=== PATIENT | female | born 1970 | race Caucasian/White ===

== ENCOUNTER 2017-04-28 20:58 | Emergency (ER) | payer MEDICAID, SELFPAY ==
[2017-04-28 21:01] VITALS: BP 146/90; PULSE 67; RESP 16; TEMP 35.9; O2SAT 100; BMI 24.4
--- NOTE | 2017-04-28 21:38 | RAD_ITS ---
STUDY: X-RAY - LUMBAR SPINE REASON FOR EXAM: Female, 46 years old. Patient fell 3 days ago. Pain in lower back. TECHNIQUE: 3 view(s) of the lumbar spine were obtained. COMPARISON: None FINDINGS: Normal lumbar lordosis. There is no substantial scoliosis. There is a normal alignment of the vertebrae. An IVC filter is in place. Normal vertebral bodies and endplates. Normal disc space heights. The soft tissue structures are unremarkable. RAD/Lumbar Spine 2 or 3 Views IMPRESSION: Normal x-ray examination of the lumbar spine. Electronically Signed: Alex Huizar MD at 22:17 EST , Service support ,
[2017-04-28] MEDS: HYDROcodone Bitartrate/Apap 5/325 Tablet PO ×2 (21:45→23:07)
--- NOTE | 2017-04-28 21:55 | RAD_ITS ---
STUDY: X-RAY - LEFT KNEE REASON FOR EXAM: Female, 46 years old. Patient fell 3 days ago. Pain in left knee. Hx of left knee injury 9 months ago. TECHNIQUE: 4 view(s) of the knee. COMPARISON: None. FINDINGS: Normal visualized distal femur. Nondisplaced fracture of the anterior tibial metaphysis. Normal proximal tibiofibular articulation. Normal medial femorotibial compartment. Normal lateral femorotibial compartment. Normal patellofemoral articulation. The soft tissue structures are unremarkable. RAD/Knee 4 or More Views IMPRESSION: Nondisplaced fracture of the anterior tibial metaphysis. Electronically Signed: Alex Huizar MD at 22:19 EST , Service support ,
--- NOTE | 2017-04-28 22:43 | ED.DCSUM_ITS ---
- ER Visit Summary Date of Service: 04/28/17 Chief Complaint: Left knee injury and back pain History of Present Illness: The patient is a 46 F who states she slipped on the ice and fell 3 days ago. She is complaining of pain to the anterior inferior aspect of her left knee as well as to her back. Patient had a tibial plateau fracture in August 2016. This healed nonsurgically. Patient states she continues to have pain to the area and is supposed to have injections by Dr. Romero in the near future. Physical Examination: Vital signs are unremarkable. Patient sitting upright in bed no acute distress. Heart is regular rate and rhythm. Lungs are clear. Abdomen is soft and nontender. Lower extremity examination reveals tenderness of the tibial tuberosity of the left leg. She has no tenderness at the joint line medially or laterally. She has strong distal pulses. She is chronic decreased range of motion the left leg secondary to her prior fracture. Back examination does reveal midline tenderness in the lumbar region. No sniffing or paraspinal tenderness. No ecchymosis or abrasions. Test Results: L-spine x-rays are unremarkable. Left knee x-rays reveal a nondisplaced fracture the anterior tibial metaphysis. Emergency Department Course and Treatment: Patient was given Hanahan here for pain. I did do an oars report. Her last narcotic was for 7 tabs of Hanahan on April 09. Images were sent to Dr. Hanna, on-call for the patient's orthopedic physician Dr. Lemon. Patient is placed in an knee immobilizer. She has crutches at home and was told multiple times that she is to be completely nonweightbearing on this leg. She is given a home pack of Hanahan tonight and prescription sent electronically for Hanahan. Patient is to see Dr. Lemon in the office next week. Treatment Plan: [] Disposition: Discharge Impression: Tibial metaphysis fracture status post fall This note was generated with [employer] dictation software. It may contain incorrect words, spelling, and punctuation that were not noted in review of the chart prior to signing ED Disposition - Plan for ED Patient: Disposition: Home or Assisted Living Chief Complaint: Lower Extremity Injury Instructions: ED Fx Lower Ext Prescriptions: Hydrocodone Bitart/Apap 5-325 [[place]ahan 5/325] 1 - 2 tablet PO Q4H PRN PRN 6 Days # 20 tablet PRN Reason: Pain Referrals: Ga Lemon MD [STAFF PHYSICIAN] - 1 Week
--- NOTE | 2017-04-28 22:43 | ED.DEP ---
ED Disposition - Plan for ED Patient: Disposition: Home or Assisted Living Chief Complaint: Lower Extremity Injury Instructions: ED Fx Lower Ext Prescriptions: Hydrocodone Bitart/Apap 5-325 [[place] 5/325] 1 - 2 tablet PO Q4H PRN PRN 6 Days #20 tablet PRN Reason: Pain Referrals: Ga Lemon MD [STAFF PHYSICIAN] - 1 Week
--- NOTE | 2017-04-28 22:47 | DCINST.ED_ITS ---
ED Disposition - Plan for ED Patient: Disposition: Home or Assisted Living Chief Complaint: Lower Extremity Injury Instructions: ED Fx Lower Ext Prescriptions: Hydrocodone Bitart/Apap 5-325 [[place] 5/325] 1 - 2 tablet PO Q4H PRN PRN 6 Days # 20 tablet PRN Reason: Pain Referrals: Ga Lemon MD [STAFF PHYSICIAN] - 1 Week
[2017-04-28 23:17] VITALS: BP 139/81; PULSE 78; RESP 18; O2SAT 97
== END 2017-04-28 23:18 | disposition home or self-care (01) ==
PROVIDERS: Emergency Provider Emergency Medicine
DX: S82.292A Other fracture of shaft of left tibia, initial encounter for closed fracture (principal); W00.0XXA Fall on same level due to ice and snow, initial encounter; Y93.9 Activity, unspecified; Y92.9 Unspecified place or not applicable; Y99.9 Unspecified external cause status; I10 Essential (primary) hypertension; E78.00 Pure hypercholesterolemia, unspecified; I25.2 Old myocardial infarction; G40.909 Epilepsy, unspecified, not intractable, without status epilepticus; F31.9 Bipolar disorder, unspecified; Z72.0 Tobacco use
CPT/HCPCS: 72100; 73564; 99283

== ENCOUNTER 2017-05-21 11:26 | Emergency (ER) | payer MEDICAID, SELFPAY ==
[2017-05-21 11:27] VITALS: BP 132/84; PULSE 80; RESP 16; TEMP 36.8; O2SAT 99; BMI 25.3
--- NOTE | 2017-05-21 11:49 | ED.VISSUMM ---
- ER Visit Summary Date of Service: 05/21/17 Chief Complaint: Upper Abdominal pain History of Present Illness: The patient is a 46 F history of anemia prior appendectomy and prior laboratory laparotomy for what sounds like a perforated gastric ulcer. She states currently she is on Vicodin for fracture of her left lower leg. States that in the last 4-5 days she started having epigastric abdominal pain. Associated nausea without vomiting. No diarrhea, constipation or fever. No back pain. No dysuria. She denies any black or bloody stools. Nothing specifically makes the pain better or worse. Physical Examination: Appearing middle-aged female. Vital signs are stable afebrile. Pulse is 99% room air no signs of hypoxia. She is in no distress. H EENT exam is unremarkable. Neck nontender no lymphadenopathy. Lungs clear to auscultation bilaterally. Heart regular rate and rhythm no murmur. Chest wall nontender. Abdomen soft and nondistended. Normal bowel sounds. No pulsatile mass. The right lower quadrant are basically unremarkable. She does have epigastric tenderness mild left upper and right upper quadrant tenderness. No hernias, masses or signs of obstruction. No distention. She is moving all 4 extremities. There is no edema. She does have a brace knee immobilizer on her left lower leg. Back exam is normal and nontender. Neurologically she is awake and alert without focal deficits. Test Results: CBC normal. BMP normal. Hepatic panel normal. Lipase normal. Emergency Department Course and Treatment: He was abdominal pain after use of Vicodin for a fractured left leg. Treatment Plan: Repeat exam at 1505 patient is doing well abdomen is benign. She will be discharged to home to follow-up with her primary care physician for further evaluation. If the pain is not improving she may need upper endoscopy. Disposition: dc Impression: Acute abdominal pain uncertain etiology Gastritis This note was generated with [employer] dictation software. It may contain incorrect words, spelling, and punctuation that were not noted in review of the chart prior to signing ED Disposition - Plan for ED Patient: Chief Complaint: Abd Pain Referrals: Argelia Viramontes DO [Primary Care Provider] -
[2017-05-21] MEDS: Famotidine 20 MG Tablet 40 MG PO (12:31)
[2017-05-21 13:18] LABS: Absolute Neutrophil Count 3.7 X10^3/uL (2.0-7.7); Basophil# 0.04 X10^3/uL; Basophil% 0.5 % (0-1); Eosinophil# 0.18 X10^3/uL; Eosinophils% 2.2 % (0-5); Hematocrit 38.2 % (37-47); Hemoglobin 12.4 g/dl (12.0-15.0); Lymphocyte % 41.9 % (19-41); Mean Corp Hgb Conc 32.5 g/gl (32-36); Mean Corpuscular Hgb 28.4 pg (27.0-32.0); Mean Corpuscular Volume 87.4 fL (81-99); Mean Platelet Vol. 10.2 fl (6.2-12.0); Monocyte# 0.78 X10^3/uL; Monocyte% 9.6 % (0-10); Neutrophil # 3.69 X10^3/uL (2.7-7.7); Neutrophil % 45.4 % (47-70); Platelet Count 371 K/mm3 (150-450); RBC Distribution Width CV 18.9 % (11.6-14.6); RBC Distribution Width SD 57.7 fl (35.1-43.9); Red Blood Count 4.37 M/mm3 (4.2-5.4); White Blood Count 8.1 K/mm3 (4.4-11.0)
[2017-05-21 13:19] LABS: POSITIVE COUNT NO; POSITIVE DIFFERENTIAL NO; POSITIVE MORPHOLOGY NO
[2017-05-21 13:51] VITALS: BP 140/80; PULSE 68; RESP 18; O2SAT 100
[2017-05-21 14:09] LABS: AST(SGOT) 8 U/L (15-37); Alanine Aminotransfer ALT/SGPT 16 U/L (13-56); Albumin, Serum 3.7 g/dL (3.2-5.0); Alkaline Phosphatase 93 U/L (45-117); Anion Gap 8 (5-15); BUN 13 mg/dL (7-18); Bilirubin, Direct 0.08 mg/dL (0.00-0.30); Calcium,Total 8.9 mg/dL (8.5-10.1); Chloride 102 mmol/L (98-107); EST Glomerular Filtration Rate 142 mL/min (>60); Est Glom Filt Rate - Afr Amer 172 mL/min (>60); Estimated Creatinine Clearance 123.99 ml/min; Globulin 3.4 g/dL (2.2-4.2); Glucose 84 mg/dL (74-106); Lipase 248 U/L (73-393); Potassium 4.5 mmol/L (3.5-5.1); Protein, Total 7.1 g/dL (6.4-8.2); Sodium Level 138 mmol/L (136-145)
--- NOTE | 2017-05-21 15:10 | ED.DEP ---
ED Disposition - Plan for ED Patient: Disposition: Home or Assisted Living Chief Complaint: Abd Pain Instructions: ED Abdominal Pain Unkn Cause, ED Gastritis Referrals: Argelia Viramontes DO [Primary Care Provider] - 3-5 Days if not improving Additional Instructions: Acute abdominal pain may be secondary to irritation in her stomach from the medications. Continue Zantac. Need follow-up your primary care physician is not getting better you may need an upper GI scope. Return to the ER if increasing pain, fever, vomiting blood or black or bloody stools.
[2017-05-21 15:25] VITALS: BP 132/82; PULSE 68; RESP 16; O2SAT 100
--- NOTE | 2017-05-21 15:25 | ED.RN ---
Reviewed d/c instructions, follow up care, and s/s that would warrant a return to the ed with pt. Pt verbalized an understanding and denies further questions for this RN. Pt skin p/w/d, resp even and unlabored, pt A&O x 3, no distress noted. Pt ambulated out of ed, gait steady.
== END 2017-05-21 15:26 | disposition home or self-care (01) ==
PROVIDERS: Emergency Provider Emergency Medicine
DX: R10.9 Unspecified abdominal pain (principal); K29.70 Gastritis, unspecified, without bleeding; F32.9 Major depressive disorder, single episode, unspecified; I25.10 Atherosclerotic heart disease of native coronary artery without angina pectoris; Z87.11 Personal history of peptic ulcer disease; Z72.0 Tobacco use
CPT/HCPCS: 80048; 80076; 83690; 85025; 99285; A4216

== ENCOUNTER 2017-08-13 15:38 | Emergency (ER) | payer MEDICAID, SELFPAY ==
[2017-08-13 15:39] VITALS: BP 107/72; PULSE 75; RESP 16; TEMP 36.8; O2SAT 99; BMI 26.4
[2017-08-13] MEDS: HYDROcodone Bitartrate/Apap 5/325 Tablet PO (15:51)
--- NOTE | 2017-08-13 15:53 | ED.VISSUMM ---
- ER Visit Summary Date of Service: 08/13/17 Chief Complaint: Left knee injury History of Present Illness: The patient is a 46 F presents to the emergency department with injury to her left knee. Patient states she was getting out of the cab and lost her balance. She fell and landed on her left knee. She was concerned because she has had tibial plateau fracture of the same knee that was treated conservatively without surgery. She states she has been able to bear weight but does admit to increasing pain. She did not hit her head. She denies loss of consciousness. She denies any other injury. She has not taken anything for the pain. Physical Examination: Vital signs reviewed General: Well-nourished, well-developed Head: Normocephalic, atraumatic Eyes: Pupils equal and reactive, extraocular muscles intact Neck, supple, no lymphadenopathy Heart: Regular rate and rhythm Respiratory: No distress, clear bilaterally Abdomen: Soft, nontender, nondistended, no peritoneal signs Back: Nontender Extremities: Superficial abrasion of the left knee. Small effusion. Extension preserved. Skin: Normal color no rash Neuro: Alert and oriented, no focal or lateralizing deficits Test Results: [] Emergency Department Course and Treatment: Patient was given one [place] for pain control. I did obtain plain films of the knee. There is evidence of old tibial plateau fracture, but no new fracture. There is no effusion. Patient's extension is preserved. She is placed in an Thomas wrap. She is already on analgesics at home. She will continue these and follow-up with orthopedics. Treatment Plan: [] Disposition: Charge Impression: Left Knee contusion This note was generated with [employer] dictation software. It may contain incorrect words, spelling, and punctuation that were not noted in review of the chart prior to signing ED Disposition - Plan for ED Patient: Chief Complaint: Lower Extremity Injury Instructions: ED Sprain Knee Referrals: Argelia Viramontes DO [Primary Care Provider] -
--- NOTE | 2017-08-13 15:55 | RAD_ITS ---
STUDY: X-RAY - LEFT KNEE REASON FOR EXAM: Left knee pain after fall, history of knee fracture. TECHNIQUE: 4 view(s) of the knee. COMPARISON: Radiographs 04/28/2017 and 02/02/2017. FINDINGS: Normal visualized distal femur. There is chronic fracture deformity of the proximal tibia and head of the fibula. Normal medial femorotibial compartment. Normal lateral femorotibial compartment. Normal patellofemoral articulation. The soft tissue structures are unremarkable. RAD/Knee 4 or More Views IMPRESSION: Chronic fracture deformity of the proximal tibia and head of the fibula without demonstrated acute fracture. Electronically Signed: Edwin Martin MD at 16:19 EDT Tel , Service support ,
== END 2017-08-13 16:55 | disposition home or self-care (01) ==
PROVIDERS: Emergency Provider Emergency Medicine
DX: S80.02XA Contusion of left knee, initial encounter (principal); W17.89XA Other fall from one level to another, initial encounter; Y93.9 Activity, unspecified; Y92.410 Unspecified street and highway as the place of occurrence of the external cause; Y99.8 Other external cause status; Z87.891 Personal history of nicotine dependence; F31.9 Bipolar disorder, unspecified
CPT/HCPCS: 73564; 99282

== ENCOUNTER 2017-11-28 21:43 | Emergency (ER) | payer MEDICAID, SELFPAY ==
[2017-11-28 21:44] VITALS: BP 115/72; PULSE 60; RESP 18; TEMP 36.5; O2SAT 99; BMI 26.0
[2017-11-28 22:21] VITALS: BP 118/80; PULSE 65; RESP 14; O2SAT 98
[2017-11-28] MEDS: HYDROcodone Bitartrate/Apap 5/325 Tablet PO (23:27)
--- NOTE | 2017-11-28 23:35 | ED.VISSUMM ---
- ER Visit Summary Date of Service: 11/28/17 Chief Complaint: Injury left leg History of Present Illness: The patient is a 46 F who had a mechanical fall and fell into a wooden stair. She complains of pain proximal and mid left leg. She reports pain with ambulation. She denies paresthesia, anesthesia motor weakness. She denies any other complaint. There is no history of head trauma. Denies neck pain. Denies any paresthesia, anesthesia motors upper extremity or weakness. Physical Examination: Patient has soft tissue swelling with contusions to the left leg. There is pain palpation over the proximal/mid third of the fibula. There is no pain the patient over the tibia. Patella is nontender. There is no effusion. There is no laxity with varus valgus stress testing. Passive flexion-extension causes discomfort. DP and PT pulses are palpable. There is no pain the patient over the lateral medial malleolus. Test Results: Two-view x-ray of the tibia and fibula were obtained and reveals that the prior anterior proximal tibial plateau has healed. There is chronic deformity of the fibular head. There is no acute fracture noted. Emergency Department Course and Treatment: X-ray was obtained to evaluate for fracture. She also was medicated with one [place] tablet Treatment Plan: Rest, ice and anti-inflammatory Disposition: Discharged home with spouse Impression: Mechanical fall with injury initial encounter Contusion left leg secondary to mechanical fall This note was generated with [employer] dictation software. It may contain incorrect words, spelling, and punctuation that were not noted in review of the chart prior to signing ED Disposition - Plan for ED Patient: Disposition: Home or Assisted Living Chief Complaint: Lower Extremity Injury Instructions: ED Contusion Lower Ext Referrals: Lida Almazan, GLYCERIN OPERATOR-C [Primary Care Provider] - 1 Week if not improving
== END 2017-11-29 00:19 | disposition home or self-care (01) ==
PROVIDERS: Emergency Provider Emergency Medicine; Family Provider Nurse Practitioner Family; PCP Nurse Practitioner Family
DX: S80.12XA Contusion of left lower leg, initial encounter (principal); W10.9XXA Fall (on) (from) unspecified stairs and steps, initial encounter; Y93.9 Activity, unspecified; Y92.89 Other specified places as the place of occurrence of the external cause; Y99.9 Unspecified external cause status; F32.9 Major depressive disorder, single episode, unspecified; I10 Essential (primary) hypertension; E78.00 Pure hypercholesterolemia, unspecified; Z86.718 Personal history of other venous thrombosis and embolism
CPT/HCPCS: 73590; 99283

== ENCOUNTER 2018-01-15 15:00 | Emergency (ER) | payer MEDICAID, SELFPAY ==
[2018-01-15] VITALS (7 sets, daily range): BP systolic 96–112; BP diastolic 59–91; PULSE 94–98; RESP 16–18; TEMP 36.6–36.7; O2SAT 94–98; BMI 28.1
--- NOTE | 2018-01-15 15:28 | ED.VISSUMM ---
- ER Visit Summary Date of Service: 01/15/18 Chief Complaint: Suicidal History of Present Illness: The patient is a 47 F presents with suicidal ideation. Patient states for the last couple days she has felt like cutting her wrists. She reached out to her counselor today. Last night she wrote her 4 page note which she states was partially a suicide note and partially a cry for help. She stated multiple times in the note that she wants to end her life. She was admitted to [facility] and discharged on December 28. She believes she was discharged too soon. She does not believe the medication she is on is helping her. She gets in frequent arguments with her boyfriend. He did not want her to come to the hospital for help. He does not like to be alone. He told her if she came to the hospital he would end their relationship. She has a history of auditory hallucinations. History of past suicide attempt. Physical Examination: Vitals are stable. Patient is afebrile. Alert no acute distress. HEENT exam is unremarkable. Neck is supple. Lungs are clear and equal bilaterally. Heart is regular rate and rhythm. Extremities are unremarkable. Skin is warm and dry. No focal neurologic deficit. Depressed, flat affect. Suicidal ideation Remainder of exam is unremarkable. Emergency Department Course and Treatment: CBC, chemistries unremarkable. HCG negative. Tox positive for barbiturates. Alcohol negative. Discussed with the counseling center for evaluation. Disposition: Per counseling center Impression: Suicidal ideation This note was generated with [employer] dictation software. It may contain incorrect words, spelling, and punctuation that were not noted in review of the chart prior to signing ED Disposition - Plan for ED Patient: Chief Complaint: Suicidal Referrals: Lida Almazan, HERNANDEZ-C [Primary Care Provider] -
--- NOTE | 2018-01-15 15:32 | ED.DCSUM_ITS ---
- ER Visit Summary Date of Service: 01/15/18 Chief Complaint: Suicidal History of Present Illness: The patient is a 47 F presents with suicidal ideation. Patient states for the last couple days she has felt like cutting her wrists. She reached out to her counselor today. Last night she wrote her 4 page note which she states was partially a suicide note and partially a cry for help. She stated multiple times in the note that she wants to end her life. She was admitted to [facility] and discharged on December 28. She believes she was discharged too soon. She does not believe the medication she is on is helping her. She gets in frequent arguments with her boyfriend. He did not want her to come to the hospital for help. He does not like to be alone. He told her if she came to the hospital he would end their relationship. She has a history of auditory hallucinations. History of past suicide attempt. Physical Examination: Vitals are stable. Patient is afebrile. Alert no acute distress. HEENT exam is unremarkable. Neck is supple. Lungs are clear and equal bilaterally. Heart is regular rate and rhythm. Extremities are unremarkable. Skin is warm and dry. No focal neurologic deficit. Depressed, flat affect. Suicidal ideation Remainder of exam is unremarkable. Emergency Department Course and Treatment: CBC, chemistries unremarkable. HCG negative. Tox positive for barbiturates. Alcohol negative. Discussed with the counseling center for evaluation. Disposition: Per counseling center Impression: Suicidal ideation This note was generated with [employer] dictation software. It may contain incorrect words, spelling, and punctuation that were not noted in review of the chart prior to signing ED Disposition - Plan for ED Patient: Chief Complaint: Suicidal Referrals: Lida Almazan, HERNANDEZ-C [Primary Care Provider] -
[2018-01-15 16:06] LABS: Absolute Lymphocyte Count 2.25 X10^3/ul (0.83-4.51); Absolute Neutrophil Count 5.1 X10^3/uL (2.0-7.7); Basophil# 0.02 X10^3/uL; Basophil% 0.2 % (0-1); Eosinophil# 0.21 X10^3/uL; Eosinophils% 2.4 % (0-5); Hematocrit 34.6 % (37-47); Lymphocyte # 2.25 X10^3/ul (4.0); Lymphocyte % 25.6 % (19-41); Mean Corp Hgb Conc 31.8 g/gl (32-36); Mean Corpuscular Hgb 27.8 pg (27.0-32.0); Mean Corpuscular Volume 87.6 fL (81-99); Mean Platelet Vol. 9.8 fl (6.2-12.0); Monocyte# 1.18 X10^3/uL; Monocyte% 13.4 % (0-10); Neutrophil # 5.12 X10^3/uL (2.7-7.7); Neutrophil % 58.3 % (47-70); Platelet Count 278 K/mm3 (150-450); RBC Distribution Width CV 15.7 % (11.6-14.6); RBC Distribution Width SD 51.1 fl (35.1-43.9); Red Blood Count 3.95 M/mm3 (4.2-5.4); White Blood Count 8.8 K/mm3 (4.4-11.0)
[2018-01-15 16:07] LABS: POSITIVE COUNT NO; POSITIVE DIFFERENTIAL NO; POSITIVE MORPHOLOGY NO
[2018-01-15 16:19] LABS: Anion Gap 7 (5-15); BUN 17 mg/dL (7-18); BUN/Creat Ratio 26.5 RATIO (10-20); Calcium,Total 8.7 mg/dL (8.5-10.1); Chloride 108 mmol/L (98-107); Creatinine, Serum 0.64 mg/dL (0.55-1.02); EST Glomerular Filtration Rate 106 mL/min (>60); Est Glom Filt Rate - Afr Amer 129 mL/min (>60); Estimated Creatinine Clearance 95.86 ml/min; Glucose 73 mg/dL (74-106); Potassium 3.8 mmol/L (3.5-5.1); Sodium Level 140 mmol/L (136-145)
[2018-01-15 16:19] LABS: Amphetamine Urine VISTA NEGATIVE (<1000 ng/mL); Barbiturate Urine VISTA POSITIVE (< 200 ng/mL); Benzodiazepine Urine VISTA NEGATIVE (< 200 ng/mL); Cocaine Urine VISTA NEGATIVE (< 300 ng/mL); Ecstacy Urine VISTA NEGATIVE (< 500 ng/mL); Methadone Urine VISTA NEGATIVE (< 300 ng/mL); PCP Urine VISTA NEGATIVE (< 25 ng/mL); THC Urine VISTA NEGATIVE (< 50 ng/mL); Vista UDS pH Range 7
[2018-01-15 16:26] LABS: Alcohol, Blood (Medical)-Serum < 3.0 mg/dL
[2018-01-15 16:28] LABS: Pregnancy, Serum, hCG Quali. NEGATIVE Negative (0-9 Nonpreg)
--- NOTE | 2018-01-15 20:04 | EKG12_ITS ---
Test Reason : [facility] [place] Blood Pressure : / mmHG Vent. Rate : 096 BPM Atrial Rate : 096 BPM P-R Int : 202 ms QRS Dur : 096 ms QT Int : 362 ms P-R-T Axes : 046 038 054 degrees QTc Int : 457 ms Normal sinus rhythm Possible Left atrial enlargement Nonspecific T wave abnormality Abnormal ECG Confirmed by MIKAELA PARK, KWAN ([id number]), city editor ELIZABETH MCCURDY ([id number]) on 01/18/2018 12:25:52 PM Referred By: CHAROLTTE Confirmed By:KWAN AL MD
== END 2018-01-15 21:00 ==
PROVIDERS: Emergency Provider Emergency Medicine; Family Provider Nurse Practitioner Family; PCP Nurse Practitioner Family
DX: R45.851 Suicidal ideations (principal); F31.9 Bipolar disorder, unspecified; F43.10 Post-traumatic stress disorder, unspecified; Z72.0 Tobacco use
CPT/HCPCS: 80048; 80307; 80320; 84703; 85025; 93005; 99284; G0480

== ENCOUNTER 2018-02-25 11:06 | Emergency (ER) | payer MEDICAID, SELFPAY ==
[2018-02-25 11:07] VITALS: BP 140/88; PULSE 89; RESP 16; TEMP 36.3; O2SAT 100; BMI 27.6
--- NOTE | 2018-02-25 11:18 | RAD_ITS ---
STUDY: X-RAY - CERVICAL SPINE REASON FOR EXAM: Female, 47 years old. Neck pain following a fall. TECHNIQUE: 3 view(s) and 4 images of the cervical spine were obtained. COMPARISON: None FINDINGS: Normal anterior atlantoaxial articulation. Normal odontoid process. Normal cervical lordosis. Normal vertebral bodies and endplates. Mild degree of disc space narrowing at the C4-C5 level. Normal visualized intervertebral neuroforamina. The soft tissue structures are unremarkable. RAD/Cerv Spine 2 or 3 Views IMPRESSION: Disc space narrowing at the C4-C5 level. Electronically Signed: Scott Mauro MD at 12:21 EST Tel [phone], Service support ,
--- NOTE | 2018-02-25 11:18 | RAD_ITS ---
STUDY: X-RAY - LEFT HUMERUS REASON FOR EXAM: Female, 47 years old. Pain following a fall. TECHNIQUE: 2 view(s) of the humerus. COMPARISON: None. FINDINGS: Normal visualized humerus. There is no demonstrated fracture or osseous destructive process. There is no demonstrated soft tissue abnormality. RAD/Humerus min 2 Views IMPRESSION: Normal x-ray examination of the humerus. Electronically Signed: Scott Mauro MD at 12:21 EST Tel [phone], Service support ,
[2018-02-25] MEDS: HYDROcodone Bitartrate/Apap 5/325 Tablet PO (11:29)
--- NOTE | 2018-02-25 11:37 | RAD_ITS ---
STUDY: X-RAY CHEST REASON FOR EXAM: Female, 47 years old. Pain following a fall. TECHNIQUE: PA and lateral views of the chest. COMPARISON: Comparison is made with prior study dated September 18, 2015. FINDINGS: The lungs are clear and expanded. Scattered calcified granulomas. There is no demonstrated pleural abnormality. Normal size heart. Normal mediastinum and maria r. Normal visualized pulmonary arteries. Normal visualized aortic arch and descending thoracic aorta. Normal visualized thoracic spine. Normal visualized ribs, clavicles, and shoulders. A filter is seen in the inferior vena cava. RAD/Chest PA and Lateral IMPRESSION: Normal x-ray examination of the chest. Electronically Signed: Scott Mauro MD at 12:22 EST Tel [phone], Service support ,
--- NOTE | 2018-02-25 12:50 | ED.DCSUM_ITS ---
- ER Visit Summary Date of Service: 02/25/18 Chief Complaint: Fall History of Present Illness: The patient is a 47 F with a fall 2 days ago. The patient slipped on ice and fell onto her left side. She did not hit her head or neck or pass out. She complains of pain to the left side of her neck, left ribs, and left upper arm. Worse with moving and breathing. No other complaints. Physical Examination: Afebrile and vital signs unremarkable. Head and neck are atraumatic to inspection. Left side neck paraspinal muscles are tender to palpation. Spine is nontender. Heart is regular. Lungs are clear. Left posterior rib tenderness diffusely. Left shoulder and left upper arm tenderness diffusely. Inspection appears normal. Neurovascular intact distally. Abdomen soft and nontender. Back otherwise nontender. Lower extremities normal. Test Results: X-rays of her cervical spine, left humerus, and chest x-ray were unremarkable. Emergency Department Course and Treatment: Patient treated with [place]. Will be discharged. [id number] anti-inflammatories and ice. Follow-up with primary care. Treatment Plan: As above Disposition: Discharge Impression: 1. Chest wall pain 2. Left arm pain 3. Cervical strain This note was generated with [email or web address] dictation software. It may contain incorrect words, spelling, and punctuation that were not noted in review of the chart prior to signing ED Disposition - Plan for ED Patient: Chief Complaint: Back Referrals: Lida Almazan NP-C [Primary Care Provider] -
--- NOTE | 2018-02-25 12:50 | ED.DEP ---
ED Disposition - Plan for ED Patient: Chief Complaint: Back Instructions: ED Neck Back Pain General Referrals: Lida Almazan, HERNANDEZ-C [Primary Care Provider] -
[2018-02-25 13:26] VITALS: RESP 19
--- OUTSIDE RECORDS SUMMARY | 2018-04-22 14:20 | XMS RPT_ITS ---
:1970 Author Organization OHIP Support Name Relationship Address Phone NOT GIVEN Unavailable Unavailable Unavailable PAREKH, CARLOS Unavailable Unavailable + PAREKH, CARLOS Unavailable [address] + [place] [address] UE Unavailable Unavailable Unavailable NOT GIVEN Unavailable Unavailable Unavailable PAREKH, CARLOS Unavailable Unavailable + NOT GIVEN Unavailable Unavailable Unavailable PAREKH, CARLOS Unavailable Unavailable + NOT GIVEN Unavailable Unavailable Unavailable NOT GIVEN Unavailable Unavailable Unavailable PAREKH, CARLOS Unavailable Unavailable + PAREKH, CARLOS Unavailable [address] + [place] [address] UE Unavailable Unavailable Unavailable NOT GIVEN Unavailable Unavailable Unavailable NOT GIVEN Unavailable Unavailable Unavailable PAREKH, CARLOS Unavailable Unavailable + PAREKH, CARLOS Unavailable [address] + [place] [address] UE Unavailable Unavailable Unavailable NOT GIVEN Unavailable Unavailable Unavailable PAREKH, CARLOS Unavailable Unavailable + NOT GIVEN Unavailable Unavailable Unavailable PAREKH, CARLOS Unavailable Unavailable + NOT GIVEN Unavailable Unavailable Unavailable PAREKH, CARLOS Unavailable Unavailable + NOT GIVEN Unavailable Unavailable Unavailable PAREKH, CARLOS Unavailable Unavailable + PAREKH, CARLOS Unavailable [address] + [place] [address] UE Unavailable Unavailable Unavailable NOT GIVEN Unavailable Unavailable Unavailable PAREKH, CARLOS Unavailable Unavailable + NOT GIVEN Unavailable Unavailable Unavailable PAREKH, CARLOS Unavailable Unavailable + NOT GIVEN Unavailable Unavailable Unavailable PAREKH, CARLOS Unavailable Unavailable + PAREKH, CARLOS Unavailable [address] + [place] [address] UE Unavailable Unavailable Unavailable CARLOS PAREKH Unavailable [address] + [place] [address] UE Unavailable Unavailable Unavailable NOT GIVEN Unavailable Unavailable Unavailable CARLOS PAREKH Unavailable Unavailable + Care Team Providers Name Role Phone Wander, Kyung Primary Care Unavailable Rossy Dumont Attending Unavailable Wander, Kyung Primary Care Unavailable Bryant Means Attending Unavailable Wander, Kyung Primary Care Unavailable En Santana Attending Unavailable Shankar Weinberg Attending Unavailable Toshia, Kiki Primary Care Unavailable Toshia, Kiki Primary Care Unavailable Breanna Reynoso Attending Unavailable Toshia, Kiki Primary Care Unavailable Martinez Vaughan Attending Unavailable BIBI ROBERSON MD Referring Unavailable KYUNG HERZOG DO Admitting Unavailable WANDERKYUNG MILIAN DO Attending Unavailable WANDER, KYUNG DO Primary Care Unavailable WAQAS RODRÍGUEZ DO Admitting Unavailable OMWAQAS PHILLIPS DO Attending Unavailable WAQAS RODRÍGUEZ DO Primary Care Unavailable CARLOS ALEX MD Consulting Unavailable CARLOS ALEX MD Referring Unavailable PROVIDER, UNKNOWN Consulting Unavailable PROVIDER, UNKNOWN Consulting Unavailable CARLOS ALEX MD Referring Unavailable KATHY MCNEIL DO Admitting Unavailable DIDKATHY ROBLES DO Attending Unavailable KATHY MCNEIL DO Primary Care Unavailable CARLOS ALEX MD Consulting Unavailable PROVIDER, UNKNOWN Consulting Unavailable PROVIDER, UNKNOWN Consulting Unavailable RENNY, DR ASIF Burgess Admitting Unavailable RENNY, DR ASIF Burgess Attending Unavailable RENNY, DR ASIF Burgess Primary Care Unavailable NO, DOCTOR ON Consulting Unavailable NO, DOCTOR ON Referring Unavailable KATHY MCNEIL DO Admitting Unavailable DIDKATHY ROBLES DO Attending Unavailable NO, DOCTOR ON Referring Unavailable KATHY MCNEIL DO Primary Care Unavailable NO, DOCTOR ON Consulting Unavailable RENNY, DR ASIF Burgess Admitting Unavailable RENNY, DR ASIF Burgess Attending Unavailable NO, DOCTOR ON Referring Unavailable RENNY, DR ASIF Burgess Primary Care Unavailable NO, DOCTOR ON Consulting Unavailable BASIA, DR GERARDO Marquez Admitting Unavailable FLOR, DR GERARDO Marquez Attending Unavailable FLOR, DR GERARDO Marquez Primary Care Unavailable NO, DOCTOR ON Consulting Unavailable NO, DOCTOR ON Referring Unavailable DIDKATHY ROBLES DO Admitting Unavailable DIDKATHY ROBLES DO Attending Unavailable NO, DOCTOR ON Referring Unavailable DIDKATHY ROBLES DO Primary Care Unavailable NO, DOCTOR ON Consulting Unavailable KATHY MCNEIL DO Admitting Unavailable DIDKATHY ROBLES DO Attending Unavailable NO, DOCTOR ON Referring Unavailable DIDKATHY ROBLES DO Primary Care Unavailable NO, DOCTOR ON Consulting Unavailable DIDKATHY ROBLES DO Admitting Unavailable DIDKATHY ROBLES DO Attending Unavailable DIDKATHY ROBLES DO Primary Care Unavailable KIKI POPE CNP Referring Unavailable KIKI POPE CNP Consulting Unavailable PROVIDER, UNKNOWN Consulting Unavailable PROVIDER, UNKNOWN Consulting Unavailable KIKI POPE PULMONARY FUNCTION TECHNICIAN Admitting Unavailable TOSHIA, KIKI PULMONARY FUNCTION TECHNICIAN Attending Unavailable TOSHIA, KIKI PULMONARY FUNCTION TECHNICIAN Primary Care Unavailable NO, DOCTOR ON Consulting Unavailable TOSHIA, KIKI PULMONARY FUNCTION TECHNICIAN Admitting Unavailable TOSHIA, KIKI PULMONARY FUNCTION TECHNICIAN Attending Unavailable TOSHIA, KIKI PULMONARY FUNCTION TECHNICIAN Primary Care Unavailable NO, DOCTOR ON Consulting Unavailable DIDKATHY ROBLES DO Admitting Unavailable DIDUR, KATHY CAIN Attending Unavailable DIDTRAVIS, KATHY CAIN Primary Care Unavailable NO, DOCTOR ON Consulting Unavailable KIKI POPE PULMONARY FUNCTION TECHNICIAN Admitting Unavailable TOSHIA, KIKI PULMONARY FUNCTION TECHNICIAN Attending Unavailable TOSHIA, KIKI PULMONARY FUNCTION TECHNICIAN Primary Care Unavailable NO, DOCTOR ON Consulting Unavailable KIKI POPE PULMONARY FUNCTION TECHNICIAN Admitting Unavailable KIKI POPE PULMONARY FUNCTION TECHNICIAN Attending Unavailable KIKI POPE PULMONARY FUNCTION TECHNICIAN Primary Care Unavailable KIKI POPE CNP Consulting Unavailable PROVIDER, UNKNOWN Consulting Unavailable PROVIDER, UNKNOWN Consulting Unavailable AYDEE, [facility] SAISSY YAZAN Attending Unavailable AYDEE, [facility] SAISSY YAZAN Attending Unavailable AYDEE, PULMONARY FUNCTION TECHNICIAN SAISSY YAZAN Attending Unavailable AYDEE, PULMONARY FUNCTION TECHNICIAN SAISSY YAZAN Attending Unavailable SHAZIA CAIN Attending Unavailable PCP, NONE Primary Care Unavailable PROBLEMS PROBLEMS DATE TYPE CONDITION / CODE ATTENDING STATUS SOURCE 01/27/2018 Principle Encounter for KIKI POPE Active Kana [facility] with abnormal Repository findings / Z0001(ICD-10) 01/06/2018 Admitting Encounter for KIKI POPE Active Kana Jeffrey Diagnosis general adult [facility] without abnormal Repository findings / Z0000(ICD-10) 01/06/2018 Principle Hypothyroidism, KIKI POPE Active Kana Pomdidier Diagnosis unspecified / [facility] E039(ICD-10) Hospital Repository 01/06/2018 Secondary Encounter for KIKI POPE Active Kaan Pomdidier Diagnosis screening for [facility] lipoid disorders / Hospital D67069(ICD-10) Repository 12/17/2017 Admitting Patient's other KATHY MCNEIL DO Active Kana Jeffrey Diagnosis noncompliance with [facility] Hospital / Z9114(ICD-10) Repository 12/17/2017 Principle Patient's other KATHY MCNEIL DO Active Kana Pomerene Diagnosis noncompliance with [facility] medication regimen Hospital / Z9114(ICD-10) Repository 12/17/2017 Secondary Suicidal ideations DIDKATHY ROBLES DO Active Kana Pomerene Diagnosis / P63122(ICD-10) [facility] Hospital Repository 12/17/2017 Secondary Homicidal ideations DIDKATHY ROBLES DO Active Kana Pomerene Diagnosis / T06785(ICD-10) [facility] Hospital Repository 12/17/2017 Secondary Anxiety disorder, DIDKATHY ROBLES DO Active Kana Pomerene Diagnosis unspecified / [facility] F419(ICD-10) Hospital Repository 12/17/2017 Secondary Major depressive DIDTRAVIS, KATHY CAIN Active Kana Pomerene Diagnosis disorder, single [facility] episode, Hospital unspecified / Repository F329(ICD-10) 12/17/2017 Secondary Epilepsy, DIDTRAVIS, KATHY CAIN Active Kana Pomerene Diagnosis unspecified, not [facility] intractable, Hospital without status Repository epilepticus / T47461(ICD-10) 12/17/2017 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, KATHY Active Kana Pomerene Diagnosis infarction / [facility] I252(ICD-10) Hospital Repository 12/17/2017 Secondary Nicotine DIDKATHY ROBLES DO Active Kana Pomerene Diagnosis dependence, [facility] cigarettes, Hospital uncomplicated / Repository K56476(ICD-10) 11/25/2017 Admitting Chest pain, CAIN, [facility] Diagnosis unspecified / [facility] A System R07.9(ICD-10) Repository 11/25/2017 Final Diagnosis Chest pain, [facility] (Discharge) unspecified / SHAZIA A System R07.9(ICD-10) Repository 11/25/2017 Final Diagnosis Chronic obstructive CAIN, [facility] (Discharge) pulmonary disease, [facility] System unspecified / Repository J44.9(ICD-10) 11/25/2017 Final Diagnosis Essential (primary) CAIN, [facility] (Discharge) hypertension / SHAZIA A System I10(ICD-10) Repository 11/25/2017 Final Diagnosis [facility] SHAZIA A System agents status / Repository Z88.1(ICD-10) 11/25/2017 [facility] System R07.9(ICD-10) Repository 07/23/2017 Unknown R10.10 - Bryant Ramos Active [facility] abdominal pain, Community unspecified / Hospital R10.10(ICD-10) Repository 07/23/2017 Unknown S82.209A - Rossy Dumont Active [facility] Unspecified Community fracture of shaft Hospital of unspecified Repository tibia, initial encounter for closed fracture / S82.209A(ICD-10) PROCEDURES PROCEDURES No Procedure Records FoundRESULTS RESULTS GC/CHLAMYDIA Collected: 03/15/2018 Status: F Source: [facility] AMPLIFICATION [CCL] 1:33 PM [facility] REPOSITORY TYPE CODE TESTS RESULT OUT OF REFERENCE UNITS RANGE LAB GC/CHLAMYDIA AMPLIFICATION [CCL](LOINC) GC/CHLAMYDIA AMPLIFICATION [CCL] Result Comment: _GC/CHLAMYDIA AMPLIFICATION [CCL]_ GC/CHLAMYDIA AMPLIFICATION [CCL] Reported: 03/16/2018 15:35 Status=F TEST RESULT FLAG RANGE UNITS GC/Chlam Amp Source SWAB 03/16/18.[email or web address] GC Amplification *See Below* 03/16/18.[email or web address] Negative for Neisseria gonorrhoeae by amplification. Chlamydia Amplif *See Below* 03/16/18.[email or web address] Negative for Chlamydia trachomatis by amplification. [facility] [address] [place] [address] Karina Berman M.D. [id number] Performed By: #### [id number] #### [facility],[address] [id number] EMERGENCY DEPARTMENT Observed: 02/25/2018 Status: F Source: [place] SUMMARY 3:55 PM [facility] REPOSITORY [facility] Medical Records Department [address] [place] [address] Emergency Department Summary 02/25/18 1248 MR#: [id number] Acct: [id number] Name: CHEYENNE BARR Rep #: [id number] : 1970 47 From: Martinez Vaughan MD PCP: MARIANO Kothari Status: DEP ER - ER Visit Summary Date of Service: 02/25/18 Chief Complaint: Fall History of Present Illness: The patient is a 47 F with a fall 2 days ago. The patient slipped on ice and fell onto her left side. She did not hit her head or neck or pass out. She complains of pain to the left side of her neck, left ribs, and left upper arm. Worse with moving and breathing. No other complaints. Physical Examination: Afebrile and vital signs unremarkable. Head and neck are atraumatic to inspection. Left side neck paraspinal muscles are tender to palpation. Spine is nontender. Heart is regular. Lungs are clear. Left posterior rib tenderness diffusely. Left shoulder and left upper arm tenderness diffusely. Inspection appears normal. Neurovascular intact distally. Abdomen soft and nontender. Back otherwise nontender. Lower extremities normal. Test Results: X-rays of her cervical spine, left humerus, and chest x-ray were unremarkable. Emergency Department Course and Treatment: Patient treated with [place]. Will be discharged. Kzuy-vaq-[id number] anti-inflammatories and ice. Follow-up with primary care. Treatment Plan: As above Disposition: Discharge Impression: 1. Chest wall pain 2. Left arm pain 3. Cervical strain This note was generated with [employer] dictation software. It may contain incorrect words, spelling, and punctuation that were not noted in review of the chart prior to signing ED Disposition - Plan for ED Patient: Chief Complaint: Back Referrals: Kiki Pope NP-C [Primary Care Provider] - What to do if you have Problems For any increased pain, shortness of breath, bleeding, nausea or vomiting, chest pain, or any unexpected problems, contact your Primary Care Provider. Call [facility] ([phone]) or report to the closest Emergency Room. Call 911 if necessary. 02/25/18 155 <Electronically signed by Martinez Vaughan MD> Date Martinez Vaughan MD Cosigner Signature (If Indicated): Date CC: FLIGHT PARAMEDICSofiaC Kiki Pope DISCHARGE INSTRUCTION Observed: 02/25/2018 Status: Cristi Source: REENA 3:55 PM [facility] REPOSITORY [facility] Medical Records Department [address] [place] [address] [place] [address] Discharge Instruction 02/25/18 1250 MR#: [id number] Acct: [id number] Name: CHEYENNE BARR Rep #: [id number] : 1970 47 From: Martinez Vaughan MD PCP: MARIANO Kothari Status: [facility] ER ED Disposition - Plan for ED Patient: Chief Complaint: Back Instructions: ED Neck Back Pain General Referrals: Kiki Pope NP-C [Primary Care Provider] - What to do if you have Problems For any increased pain, shortness of breath, bleeding, nausea or vomiting, chest pain, or any unexpected problems, contact your Primary Care Provider. Call [facility] ([phone]) or report to the closest Emergency Room. Call 911 if necessary. 02/25/18 1555 <Electronically signed by Martinez Vaughan MD> Date Martinez Vaughan MD Cosigner Signature (If Indicated): Date CC: FLIGHT PARAMEDICBrock Pope HUMERUS MIN 2 VIEWS Observed: 02/25/2018 Status: F Source: REE[place] 11:19 AM [facility] REPOSITORY [facility] Imaging Services [address] [place] [address] Humerus min 2 Views MR#: [id number] Acct: [id number] Name: CHEYENNE BARR Rep #: [id number] : 1970 F 47 From: Scott Mauro MD PCP: MARIANO Kothari Status: REG ER Study: Humerus min 2 Views Date of Exam: 02/25/18 Exam# [id number] Ordering Dr: Martinez Vaughan MD STUDY: X-RAY - LEFT HUMERUS REASON FOR EXAM: Female, 47 years old. Pain following a fall. TECHNIQUE: 2 view(s) of the humerus. COMPARISON: None. FINDINGS: Normal visualized humerus. There is no demonstrated fracture or osseous destructive process. There is no demonstrated soft tissue abnormality. RAD/Humerus min 2 Views IMPRESSION: Normal x-ray examination of the humerus. Electronically Signed: Scott Mauro MD at 12:21 EST Tel [phone], Service support , CC: FLIGHT PARAMEDICBrock Pope; Martinez Vaughan MD Track Layer Head: Signed CERV SPINE 2 OR 3 Observed: 02/25/2018 Status: F Source: [place] VIEWS 11:19 AM [facility] REPOSITORY [facility] Imaging Services [address] [place] [address] Cerv Spine 2 or 3 Views MR#: [id number] Acct: [id number] Name: CHEYENNE BARR Rep #: [id number] : 1970 F 47 From: Scott Mauro MD PCP: MARIANO Kothari Status: REG ER Study: Cerv Spine 2 or 3 Views Date of Exam: 02/25/18 Exam# [id number] Ordering Dr: Martinez Vaughan MD STUDY: X-RAY - CERVICAL SPINE REASON FOR EXAM: Female, 47 years old. Neck pain following a fall. TECHNIQUE: 3 view(s) and 4 images of the cervical spine were obtained. COMPARISON: None FINDINGS: Normal anterior atlantoaxial articulation. Normal odontoid process. Normal cervical lordosis. Normal vertebral bodies and endplates. Mild degree of disc space narrowing at the C4-C5 level. Normal visualized intervertebral neuroforamina. The soft tissue structures are unremarkable. RAD/Cerv Spine 2 or 3 Views IMPRESSION: Disc space narrowing at the C4-C5 level. Electronically Signed: Scott Mauro MD at 12:21 EST Tel [phone], Service support , CC: MARIANO Pope; Martinez Vaughan MD Track Layer Head: Signed CHEST PA AND LATERAL Observed: 02/25/2018 Status: F Source: [place] 11:19 AM [facility] REPOSITORY [facility] Imaging Services [address] [place] [address] Chest PA and Lateral MR#: [id number] Acct: [id number] Name: CHEYENNE BARR Rep #: [id number] : 1970 F 47 From: Scott Mauro MD PCP: MARIANO Kothari Status: REG ER Study: Chest PA and Lateral Date of Exam: 02/25/18 Exam# [id number] Ordering Dr: Martinez Vaughan MD STUDY: X-RAY CHEST REASON FOR EXAM: Female, 47 years old. Pain following a fall. TECHNIQUE: PA and lateral views of the chest. COMPARISON: Comparison is made with prior study dated September 18, 2015. FINDINGS: The lungs are clear and expanded. Scattered calcified granulomas. There is no demonstrated pleural abnormality. Normal size heart. Normal mediastinum and maria r. Normal visualized pulmonary arteries. Normal visualized aortic arch and descending thoracic aorta. Normal visualized thoracic spine. Normal visualized ribs, clavicles, and shoulders. A filter is seen in the inferior vena cava. RAD/Chest PA and Lateral IMPRESSION: Normal x-ray examination of the chest. Electronically Signed: Scott Mauro MD at 12:22 EST Tel [phone], Service support , CC: MARIANO Pope; Martinez Vaughan MD Track Layer Head: Signed MAMM DIGITAL BILAT Observed: 02/10/2018 Status: F Source: KANA JEFFREY SCREEN 5:31 PM [address] [address] Patient: CHEYENNE BARR Phone#: : 1970 Age: 47 Gender: F Pt. Type: Out Account: [id number] Location: [facility] Ordering: KIKI POPE Exam Date: 02/10/2018/17:14 Family Phys: NO DOCTOR Charge Code: [id number] Physician: Cataño Order #: [id number] DLP Dose#: PROCEDURE: MAMM BILAT DIGITAL SCREENING WITH CAD COMPARISON: [facility], BILAT DIAGNOSTIC, 04/14/2013, 13:45. [facility], LT SPOT/MAG DIGITAL, 04/14/2013, 14:00. INDICATIONS: Screening BREAST COMPOSITION: Scattered fibroglandular densities (25-50% glandular). FINDINGS: DIAGNOSTIC CATEGORY 1--NEGATIVE ASSESSMENT. RIGHT BREAST: No significant suspicious finding. Scattered benign-appearing nodules are present. No significant change has occurred. LEFT BREAST: No significant suspicious finding. Previously noted nodular focus is no longer present. RECOMMENDATIONS: ROUTINE MAMMOGRAM AND CLINICAL EVALUATION. PLEASE NOTE: A NORMAL MAMMOGRAM DOES NOT EXCLUDE THE POSSIBILITY OF BREAST CANCER. A CLINICALLY SUSPICIOUS PALPABLE LUMP SHOULD BE BIOPSIED. THIS FACILITY UTILIZES A REMINDER SYSTEM TO ENSURE THAT ALL PATIENTS RECEIVE REMINDER LETTERS FOR APPOINTMENTS. THIS INCLUDES REMINDERS FOR ROUTINE MAMMOGRAMS, DIAGNOSITC MAMMOGRAMS, OR OTHER BREAST IMAGING INTERVENTIONS WHEN APPROPRIATE. THIS PATIENT WILL BE PLACED IN THE APPROPRIATE REMINDER SYSTEM. Dictated by: Davina Wright MD on 02/10/2018 at 17:43 Approved by: Davina Wright MD on 02/10/2018 at 17:43 CT BRAIN W/O CONTRAST Observed: 01/30/2018 Status: F Source: [facility] 11:07 PM [address] [place] [id number] Patient: CHEYENNE BARR Phone#: : 1970 Age: 47 Gender: F Pt. Type: ER Account: [id number] Location: [facility] Ordering: KATHY MCNEIL Exam Date: 01/30/2018/23:02 Family Phys: NO DOCTOR Charge Code: [id number] Physician: Cataño Order #: [id number] DLP Dose#: PROCEDURE: CT BRAIN WITHOUT CONTRAST COMPARISON: [facility], CT, BRAIN W/O CON, 11/07/2017, 23:17. INDICATIONS: Altered Mental Status TECHNIQUE: CT images were obtained without contrast material. All CT scans at this facility use dose modulation, iterative reconstruction, and/or weight based dosing when appropriate to reduce radiation dose to as low as reasonably achievable. IV CONTRAST: No IV contrast used,0ml TOTAL DOSE: 52.3 CTDIvol(mGy) FINDINGS: CEREBRUM: No edema, hemorrhage, mass, acute infarction, or inappropriate atrophy. CEREBELLUM: No edema, hemorrhage, mass, acute infarction, or inappropriate atrophy. BRAINSTEM: No edema, hemorrhage, mass, acute infarction, or inappropriate atrophy. CSF SPACES: Ventricles, cisterns, and sulci are appropriate for age. No hydrocephalus, subarachnoid hemorrhage, or mass. SKULL: No mass or other significant visible lesion. SINUSES: Limited views demonstrate no significant mucosal thickening or fluid. ORBITS: Limited views are unremarkable. OTHER: Negative. CONCLUSION: No acute disease. No significant change has occurred. Dictated by: Davina Wright MD on 02/01/2018 at 9:12 Approved by: Davina Wright MD on 02/01/2018 at 9:12 EMERGENCY REPORT Observed: 01/30/2018 Status: F Source: [facility] 10[facility] REPORT NAME ACCOUNT SEX AGE ADMIT DISCHARGE PT MED. RECORD# NUMBER DATE DATE TYPE MOMO, [id number] F 47 01/30/18 01/31/18 3 CHEYENNE [id number] ROOM: ER DATE OF : 1970 DICTATING PHYSICIAN: Kathy Mcneil TIME SEEN: 2300 hours. HISTORY OF PRESENT ILLNESS: This is a 47-year-old white female complaining of stiffness in her left arm, stating almost like I can't move it. She complains of pain to the entire left side of her body. She complains of a left- sided headache, which she rates as a 6 on a severity scale of 1-10. She describes it as throbbing in nature. She states it does feel like her migraine headaches. She complains of some tingling in her forehead. She complains of some diffuse generalized weakness. She states the symptoms started about 3 hours ago while she was sitting in the recliner watching TV. She denies any chest pain or shortness of breath. She denies any blurred or double vision. PAST MEDICAL HISTORY: The patient states she has a past medical history of mitral valve prolapse and migraine headaches. When I review the old records, there also is a history of COPD listed, asthma, migraine headaches, psychiatric history, and a heart condition. She also listed a seizure disorder as part of her history tonight. PAST SURGICAL HISTORY: Appendectomy. She has had previous back surgery, carpal tunnel surgery, and a [place] filter placed. ALLERGIES: She is allergic to tetracycline, Ambien and baclofen. SOCIAL HISTORY: She is a smoker of one pack per day. She denies any alcohol use. She has snorted some of her Seroquel in the past, but she denies any illicit drug use. REVIEW OF SYSTEMS: She denies any blurred or double vision. She denies any chest pain, shortness of breath, cough, sputum, wheezing, abdominal pain, nausea, vomiting, diarrhea, constipation, melena, or hematochezia. She does admit to a headache. She denies any numbness or unsteady gait but does complain of some diffuse generalized weakness with some left arm stiffness. She denies any skin rash or swelling, hives, hay fever, or swollen glands. Further review of systems is negative. PHYSICAL EXAMINATION: Vital signs: Blood pressure is 127/93, pulse 92, respirations 18, pulse oximetry 97%, and weight 158 pounds. The patient is alert and oriented x3. She presently appears in no acute distress. She is pleasant and cooperative. Clear speech. HEENT: Head appears atraumatic. Pupils are equal and reactive to light. Red reflexes are intact bilaterally. Extraocular muscles are intact. No Page 1 of 2 [facility] Emergency Room Report conjunctival injection. No scleral icterus or lid edema. Ears: TMs are intact bilaterally. No erythema noted. No external auditory canal edema or bleeding. Nose exhibits no rhinorrhea or epistaxis. Mouth: Mucous membranes are moist. No pharyngeal erythema. Uvula is midline and elevates. Neck is supple. Trachea is midline. No JVD or lymphadenopathy. No posterior cervical tenderness. No nuchal rigidity. Lungs are clear to auscultation in all lung abreu. No adventitious sounds are noted. No accessory muscle use. CV: Heart rate and rhythm are regular without murmur. Abdomen is soft and nontender with normoactive bowel sounds x4 quadrants. No guarding or rigidity. No rebound. No palpable abdominal masses. No hepatosplenomegaly. Back exhibits no midline or paraspinal region tenderness. No increased paraspinal muscle rigidity. Negative Mumtaz's sign. Extremities: No edema or cyanosis. Peripheral pulses are intact. Presently no motor or sensory deficits are noted. She does not like moving her left arm because it hurts the triceps region when she moves it, but she can pickling solution maker her left arm and move it fine; it is just that she will get pain in her triceps muscle region with moving the left arm so she is somewhat resistant to moving that arm. Her hand telesales supervisor is strong and symmetric. Her neurologic examination shows her to be alert and oriented x4. No motor or sensory deficits are noted. No facial droop. No slurred speech. She makes eye contact. Skin is warm and dry. No diaphoresis or rash. The patient has somewhat of a flat affect. DIAGNOSTIC DATA: We did send her immediately over to CT for a CT of the brain; that report came back as no acute intracranial abnormality. There is no intracranial hemorrhage. No abnormal mass or fluid collection. No mass effect or shift of the midline structures. Questionable mild atrophy. The remainder of the brain is within normal limits. No discrete foci of abnormal attenuation. Ventricles are normal in size. Mastoid air cells and middle ear cavities are clear. The visualized paranasal sinuses are clear. EMERGENCY DEPARTMENT COURSE AND TREATMENT: Presently, I do have some screening bloodwork pending as well, and we will then reevaluate. Dictated By: Kathy Mcneil DO 01/30/18 23:37 JOB #: [id number] Transcribed By: art 01/31/18 10:21 Electronically signed by: E-Sign: Dr. Kathy Mcneil D.O. 01/31/18 22:00 Page 2 of 2 [facility] BARR Emergency Room Report EMERGENCY REPORT Observed: 01/30/2018 Status: F Source: [facility]PORT NAME ACCOUNT SEX AGE ADMIT DISCHARGE PT MED. RECORD# NUMBER DATE DATE TYPE MOMO, [id number] F 47 01/30/18 01/31/18 3 [place] [id number] ROOM: ER DATE OF : 1970 DICTATING PHYSICIAN: Kathy Mcneil ADDENDUM DIAGNOSTIC DATA: CT brain was negative. EMERGENCY DEPARTMENT COURSE AND TREATMENT: The patient did get up and ambulate here about the emergency department without difficulty. She walked into the bathroom and she actually shut the door with her left arm. She moves everything symmetrically and strongly. She clinically looks very good. At this point, we have watched her here for several hours and she continues to move everything well. She has been asking for something for pain, so I did give her some ibuprofen. She wanted something mainly for that left upper arm pain in her triceps region. She was tender on palpation when I push on that area. She also had increased pain in that area with arm movement, so it does appear to be musculoskeletal. I certainly do not see any focal neurologic deficits. At this point, we are going to let the patient go home and she can follow up with Kiki Toshia, her primary care physician in 2 to 4 days for reevaluation. If her symptoms become worse, or any other problems develop, return here to the emergency department. The patient was discharged in a clinically stable condition. Nursing notes were reviewed. DIAGNOSIS: 1. Migraine cephalgia. 2. Musculoskeletal arm pain. Dictated By: Kathy Mcneil DO 01/31/18 00:56 JOB #: [id number] Transcribed By: ap 01/31/18 12:17 Electronically signed by: E-Sign: Dr. Kathy Mcneil D.O. 01/31/18 22:01 Page 1 of 1 [facility] BARR Emergency Room Report 12 LEAD ELECTROCARDIOGRAM Observed: 01/18/2018 Status: F Source: [place] 12:26 PM [facility] REPOSITORY [facility] Cardiovascular Services [address] [place] [address] 12 Lead EKG 01/15/182020 MR#: [id number] Acct: [id number] Name: CHEYENNE BARR Rep #: [id number] : 1970 47 From: Jenaro Al MD Attending Dr: Status: DEP ER Ordering Dr: Breanna Reynoso MD Date: 01/15/18 Location: ED Sex: F C Admitted: Test Reason : MHC Blood Pressure : / mmHG Vent. Rate : 096 BPM Atrial Rate : 096 BPM P-R Int : 202 ms QRS Dur : 096 ms QT Int : 362 ms P-R-T Axes : 046 038 054 degrees QTc Int : 457 ms Normal sinus rhythm Possible Left atrial enlargement Nonspecific T wave abnormality Abnormal ECG Confirmed by MIKAELA PARK, JENARO ([id number]), news video editor ELIZABETH MCCURDY ([id number]) on 01/18/2018 12:25:52 PM Referred By: CHARLOTTE Confirmed By:JENARO AL MD 01/18/18 3099 Date Jenaro Al MD CC: FLIGHT PARAMEDIC-C Kiki Pope; Breanna Reynoso MD Signed EMERGENCY DEPARTMENT Observed: 01/15/2018 Status: F Source: REENA SUMMARY 4:46 PM [facility] REPOSITORY [facility] Medical Records Department [address] [place] [address] Emergency Department Summary 01/15/18 1528 MR#: [id number] Acct: [id number] Name: CHEYENNE BARR Rep #: [id number] : 1970 47 From: Breanna Reynoso MD PCP: MARIANO Kothari Status: REG ER - ER Visit Summary Date of Service: 01/15/18 Chief Complaint: Suicidal History of Present Illness: The patient is a 47 F presents with suicidal ideation. Patient states for the last couple days she has felt like cutting her wrists. She reached out to her counselor today. Last night she wrote her 4 page note which she states was partially a suicide note and partially a cry for help. She stated multiple times in the note that she wants to end her life. She was admitted to [facility] and discharged on December 28. She believes she was discharged too soon. She does not believe the medication she is on is helping her. She gets in frequent arguments with her boyfriend. He did not want her to come to the hospital for help. He does not like to be alone. He told her if she came to the hospital he would end their relationship. She has a history of auditory hallucinations. History of past suicide attempt. Physical Examination: Vitals are stable. Patient is afebrile. Alert no acute distress. HEENT exam is unremarkable. Neck is supple. Lungs are clear and equal bilaterally. Heart is regular rate and rhythm. Extremities are unremarkable. Skin is warm and dry. No focal neurologic deficit. Depressed, flat affect. Suicidal ideation Remainder of exam is unremarkable. Emergency Department Course and Treatment: CBC, chemistries unremarkable. HCG negative. Tox positive for barbiturates. Alcohol negative. Discussed with the counseling center for evaluation. Disposition: Per counseling center Impression: Suicidal ideation This note was generated with [employer]out[employer] dictation software. It may contain incorrect words, spelling, and punctuation that were not noted in review of the chart prior to signing ED Disposition - Plan for ED Patient: Chief Complaint: Suicidal Referrals: Kiki Pope NP-C [Primary Care Provider] - What to do if you have Problems For any increased pain, shortness of breath, bleeding, nausea or vomiting, chest pain, or any unexpected problems, contact your Primary Care Provider. Call [facility] ([phone]) or report to the closest Emergency Room. Call 911 if necessary. 01/15/18 1646 <Electronically signed by Breanna Reynoso MD> Date Breanna Reynoso MD Cosigner Signature (If Indicated): Date CC: MARIANO Pope URINE DRUG SCREEN Collected: 01/15/2018 Status: F Source: REENA (VISTA) 3:55 PM [facility] REPOSITORY TYPE CODE TESTS RESULT OUT OF RANGE REFERENCE UNITS LAB L505.0075 TO BE Normal CONFIRMED Result Comment: CONFIRMATORY TESTING FOR ALL POSITIVE URINE DRUG SCREEN RESULTS WILL ONLY BE SENT OUT UPON PHYSICIAN ORDER. VISTA Urine Drug Screen methods provide only preliminary analytical test results. A more specific alternate chemical method must be used in order to obtain a confirmed analytical result. Gas chromatography/mass spectrometery (GC/MS) is the preferred confirmatory method. Clinical consideration and professional judgement should be applied to any drug of abuse test result, particularly when preliminary positive results are used. URINE TCA TESTING MUST BE ORDERED SEPARATELY. USE TEST MNEMONIC: [facility] LAB L505.5005 VISTA UDS PH 7 Normal LAB L505.5015 <1000 ng/mL AMPHETAMINES Normal NEGATIVE LAB L505.5025 < 200 High ng/mL BARBITIURATES POSITIVE LAB L505.5035 < 200 ng/mL BENZODIAZIPINE Normal NEGATIVE LAB L505.5045 < 300 ng/mL COCAINE Normal NEGATIVE LAB L505.5055 < 500 ng/mL ECSTACY Normal NEGATIVE LAB L505.5065 < 300 ng/mL METHADONE Normal NEGATIVE LAB L505.5075 < 300 ng/mL OPIATES Normal NEGATIVE LAB L505.5085 < 25 ng/mL PCP Normal NEGATIVE LAB L505.5095 < 50 ng/mL THC Normal NEGATIVE Performed By: #### L505.5000 #### [facility] [address] [place], [place], [address] CBC W/DIFF, AUTOMATED Collected: 01/15/2018 Status: F Source: REENA 3:37 PM [facility] REPOSITORY TYPE CODE TESTS RESULT OUT OF RANGE REFERENCE UNITS LAB L100.1000 4.4-11.0 K/mm3 Normal WBC 8.8 LAB L100.1200 4.2-5.4 M/mm3 Low RBC 3.95 LAB L100.1300 12.0-15.0 g/dl Low HGB 11.0 LAB L100.1400 37-47 % Low HCT 34.6 LAB L100.1500 81-99 fL Normal MCV 87.6 LAB L100.1600 27.0-32.0 pg Normal MCH 27.8 LAB L100.1700 32-36 g/gl Low MCHC 31.8 LAB L100.1810 11.6-14.6 % High RDW CV 15.7 LAB L100.1820 35.1-43.9 fl High RDW SD 51.1 LAB L100.1900 150-450 K/mm3 Normal PLT 278 LAB L100.2000 6.2-12.0 fl Normal MPV 9.8 LAB L100.2100 47-70 % Normal NEUT% 58.3 LAB L100.2200 19-41 % Normal LY% 25.6 LAB L100.2300 0-10 % High MONO% 13.4 LAB L100.2400 0-5 % Normal EO% 2.4 LAB L100.2500 0-1 % Normal BASO% 0.2 LAB L100.2550 0.0-0.9 % Normal IM GRAN % 0.100 Result Comment: IG% - Immature Granulocytes (promyelocytes, myelocytes and metamyelocytes) > 1% indicates that a LEFT SHIFT is Present. LAB L100.2620 2.0-7.7 X10 3/uL Normal Absolute Neut 5.1 LAB L100.2720 0.83-4.51 X10 3/ul Normal Absolute Lymph 2.25 Performed By: #### L100.0100 #### [facility] [address] [place], [address] BASIC METABOLIC Collected: 01/15/2018 Status: F Source: REENA PROFILE (BMP) 3:37 PM [facility] REPOSITORY TYPE CODE TESTS RESULT OUT OF RANGE REFERENCE UNITS LAB L501.0100 74-106 mg/dL Low GLU 73 Result Comment: Please note revised GLUCOSE reference range effective 2017. LAB L501.1000 7-18 mg/dL Normal BUN 17 LAB L501.1100 0.55-1.02 mg/dL Normal CREAT,SERUM 0.64 Result Comment: The validity of the calculated GFR AND GFRAA in patients over 70 years has not been determined. Clinical correlation is essential. LAB L501.1110 >60 mL/min Normal EST GFR 106 Result Comment: Non- GFR Calc LAB L501.1115 >60 mL/min Normal EST GFR - AA 129 Result Comment: GFR Calc LAB L501.1255 ml/min Normal Estimated CRCL 95.86 LAB L501.1300 10-20 RATIO High BUN/CRE 26.5 LAB L501.2200 8.5-10 mg/dL Normal .1 CA 8.7 LAB L501.5300 136-14 mmol/L Normal 5 NA 140 LAB L501.5600 3.5-5. mmol/L Normal 1 K 3.8 LAB L501.5900 98-107 mmol/L High CL 108 LAB L501.6100 21.0-3 mmol/L Normal 2.0 CO2 25.0 LAB L501.6200 5-15 Normal GAP 7 Performed By: #### L500.2500 #### [facility] [address] [place], [place], [id number] ALCOHOL, BLOOD Collected: 01/15/2018 Status: F Source: [facility] ([facility])-SERUM 3:37 PM [facility] REPOSITORY TYPE CODE TESTS RESULT OUT OF RANGE REFERENCE UNITS LAB L501.9100 mg/dL Normal SERUM < 3.0 ETOH Result Comment: The serum:whole blood ethanol ratio is approximately 1.14 and varies slightly with hematocrit. Medical Alcohol reference interval and critical value in non-tolerant individuals; 50 - 100 Impairment 100 Intoxication 100 - 250 Severe Poisoning 250 - 400 Deep/possible fatal coma Performed By: #### L501.9100 #### [facility] [address] [place], [place], [id number] ,SERUM,HCG QUALI. Collected: Status: F Source: [place] 01/15/2018 3:37 PM [facility] REPOSITORY TYPE CODE TESTS RESULT OUT OF REFERENCE UNITS RANGE LAB L700.7000 0-9 Nonpreg Negative Normal HCGSQUAL NEGATIVE LAB L700.6700 =>Qualitative mIU/mL Normal HCG Qual < 1 triggr Performed By: #### L700.6800 #### [facility] [address] [place], [address] CBC Collected: 01/06/2018 Status: F Source: [place] JEFFREY 11:23 AM [facility] REPOSITORY TYPE CODE TESTS RESULT OUT OF RANGE REFERENCE UNITS LAB CBC(LOINC) CBC Result Comment: CBC-COMPLETE BLOOD COUNT LAB WBC(LOINC) 4.5 - 10.8 x 10EE3/UL WBC 9.2 LAB RBC(LOINC) 4.10 - x 10EE6/UL 5.30 RBC 4.21 LAB HEMOGLOBIN(LOINC 12.0 - g/dl ) 16.0 Low HEMOGLOBIN 11.9 LAB HEMATOCRIT(LOINC 34.0 - % ) 46.0 HEMATOCRIT 35.4 LAB MCV(LOINC) 80 - 99 fl MCV 84 LAB MCH(LOINC) 27 - 33 pg MCH 28 LAB MCHC(LOINC) 32 - 36 X10 3 MCHC 34 LAB RDW/CV(LOINC) 12.0 - % 15.6 RDW/CV High 15.9 LAB PLATELET(LOINC) 150 - 450 x10EE3/UL PLATELET 389 LAB MPV(LOINC) 6.6 - 10.5 fl MPV 8.6 Result Comment: AUTOMATED DIFFERENTIAL LAB NEUT %(LOINC) 46.0 - 76.0 % NEUT % 54.1 LAB LYMPH %(LOINC) 20.0 - 45.0 % LYMPH % 35.5 LAB MONOS %(LOINC) 0.0 - 10.0 % MONOS % 8.2 LAB EO %(LOINC) 0.0 - 7.0 % EO % 1.3 LAB BASO %(LOINC) 0.0 - 2.0 % BASO % 0.9 LAB Lymph #(LOINC) 0.80 - 2.80 x10EE3/U L Lymph # High 3.30 LAB Neut #(LOINC) 1.50 - 7.10 x10EE3/U L Neut # 5.00 LAB [place] #(LOINC) 0.20 - 1.00 x10EE3/U L [place] # 0.80 LAB EO #(LOINC) 0.00 - 0.50 x10EE3/U L EO # 0.10 LAB Baso #(LOINC) 0.00 - 0.10 x10EE3/U L Baso # 0.10 LAB MANUAL DIFF(LOINC) MANUAL DIFF N/A LAB MORPHOLOGY(INC ) MORPHOLOGY N/A Result Comment: {CD] Performed By: #### [id number] #### [facility],[address] [place] [address] CMP WITH EGFR Collected: 01/06/2018 Status: F Source: [facility] 11:23 AM [facility] REPOSITORY TYPE CODE TESTS RESULT OUT OF RANGE REFERENCE UNITS LAB CMP with eGFR(INC) CMP with eGFR Result Comment: COMPREHENSIVE METABOLIC PANEL LAB SODIUM(LOINC) 136 - 145 mmol/l SODIUM Low 134 LAB POTASSIUM(LOINC) 3.5 - 5.1 mmol/L POTASSIUM 4.1 LAB CHLORIDE(LOINC) 98 - 107 mmol/L CHLORIDE 102 LAB CO2(LOINC) 21.0 - mmol/L 31.0 CO2 24.5 LAB GLUCOSE(LOINC) 74 - 106 mg/dl GLUCOSE 101 LAB BUN(LOINC) 6 - 20 mg/dl BUN 8 LAB CREATININE(LOINC) 0.6 - 1.2 mg/dl Low CREATININE 0.5 LAB AST/SGOT(LOINC) 13 - 39 U/L AST/SGOT Low 12 LAB ALK PHOS(LOINC) 38 - 126 U/L ALK PHOS 57 LAB CALCIUM(LOINC) 8.6 - mg/dl 10.2 CALCIUM 9.3 LAB TOTAL 6.4 - 8.3 g/dl PROTEIN(LOINC) TOTAL PROTEIN 6.7 LAB ALBUMIN(LOINC) 3.4 - 4.8 g/dL ALBUMIN 4.3 LAB GLOBULIN(LOINC) 1.5 - 3.8 G/DL GLOBULIN 2.4 LAB A/G RATIO(LOINC) 0.9 - 1.6 A/G High RATIO 1.8 LAB TOTAL BILI(LOINC) 0.0 - 1.5 mg/dl TOTAL BILI 0.5 LAB B/C RATIO(LOINC) 0 - 30 ratio B/C RATIO 16 LAB ALT/SGPT(LOINC) 8 - 35 U/L ALT/SGPT Low 7 LAB ANION GAP(LOINC) 10 - 20 mmol/L ANION GAP 12 LAB AGE(LOINC) years AGE 47 LAB eGFR(LOINC) 60 - 999 ML/MINUTE eGFR >60 LAB eGFR(AA)(LOINC) 60 - 999 ML/MINUTE eGFR(AA) >60 Result Comment: ACCORDING TO THE NATIONAL KIDNEY DISEASE EDUCATION PROGRAM(NKDE), A NORMAL eGFR IS A VALUE GREATER THAN OR EQUAL TO 60 ML/MIN/1.73 SQ METERS. CHRONIC KIDNEY DISEASE: <60mL/MIN/1.73 SQ METERS KIDNEY FAILURE: <15mL/MIN/1.73 SQ METERS THIS TEST SHOULD ONLY BE USED FOR PATIENTS 18 YEARS OF AGE AND OLDER. Performed By: #### [id number] #### [place] [address] LIPID PROFILE Collected: 01/06/2018 Status: F Source: [facility] 11:23 [facility] ER TYPE CODE TESTS RESULT OUT OF REFERENCE UNITS RANGE LAB LIPID PROFILE(LOIN C) LIPID PROFILE Result Comment: LIPID PROFILE LAB TRIGLYCERIDE(LOINC) 0 - 150 mg/dl TRIGLYCERIDE 119 LAB CHOLESTEROL(LOINC) 0 - 200 mg/dl CHOLESTEROL 153 LAB HDL(LOINC) 40 - 60 mg/dl HDL 48 LAB CHOL/HDL(LOINC) 0.0 - 5.0 CHOL/HDL 3.2 LAB LDL(LOINC) 0 - 129 mg/dl LDL 81 Performed By: #### [id number] #### [place] [address] TSH Collected: 01/06/2018 Status: F Source: [facility] 11:23 [facility] ER TYPE CODE TESTS RESULT OUT OF RANGE REFERENCE UNITS LAB TSH(LOINC) 0.34 - 5.60 uIU/ml TSH 2.24 Performed By: #### [id number] #### [place] [address] EMERGENCY REPORT Observed: 12/22/2017 Status: F Source: [facility] 10:37 [facility] EMERGENCY ROOM REPORT NAME ACCOUNT SEX AGE ADMIT DISCHARGE PT MED. RECORD# NUMBER DATE DATE TYPE BARR, [id number] F 47 12/17/17 12/18/17 3 [place] [id number] ROOM: ER DATE OF : 1970 DICTATING PHYSICIAN: Asif Le ADDENDARIANNE EMERGENCY DEPARTMENT COURSE AND TREATMENT: The patient is having suicidal and homicidal ideations. Crisis came in and evaluated and thought she needed to be placed. She will be admitted to a psychiatric institution. DIAGNOSES: 1. Suicidal and homicidal ideations. 2. Noncompliance with medications. Dictated By: Asif Le DO 12/18/17 16:36 JOB #: [id number] Transcribed By: art 12/18/17 17:01 Electronically signed by: ADRIA Le D.O. 12/22/17 10:37 Page 1 of 1 CHE[facility]NE BARR Emergency Room Report EMERGENCY REPORT Observed: 12/21/2017 Status: F [facility] NAME ACCOUNT SEX AGE ADMIT DISCHARGE PT MED. RECORD# NUMBER DATE DATE TYPE BARR, [id number] F 47 12/17/17 12/18/17 3 [place] [id number] ROOM: ER DATE OF : 1970 DICTATING PHYSICIAN: Kathy Mcneil ADDENDUM DIAGNOSTIC DATA: Her bloodwork showed a white count of 11.6. Her hemoglobin was 11.9, hematocrit 35.4, and platelet count 200,000. Sodium is 138, potassium 3.5, chloride 106, CO2 of 21.2, BUN 10, creatinine 0.5, and glucose 72. Liver functions came back within normal limits. Anion gap was normal at 14. Her urinalysis showed no white cells and only a trace of bacteria with moderate epithelials and 0-5 red cells. Her test was negative. Her acetaminophen level was less than 10. Her salicylate level was less than 4. Her blood alcohol was less than 8, so those were all normal. EMERGENCY DEPARTMENT COURSE AND TREATMENT: The patient was going to be discharged after I spoke with Julio because at that time the patient was not suicidal. [facility] arranged for her to be seen tomorrow at their office at 1 p.m. We got ready to discharge the patient, and she said she was just going to go home and overdose on her medications and that she had enough at home to do that. She had denied suicidal ideation earlier when she was here. Now that she said that, we did not feel that she was safe to go home. We called Crisis back. They have 4 other patients ahead of her to see, so they probably will not be in to see this patient until after 7 a.m. We spoke with the patient and told her that we did not feel that she was safe to go home, and at this point she is agreeable with that. She is asking for something for her migraine headache. She wanted Vicodin, but I gave her ibuprofen instead, and so far she has been happy with that. Presently, at this point, we had the patient waiting here to see Crisis since she has kind of changed her story and is now complaining of suicidal ideation. Her plan is to overdose on her medications, which she has already admitted she is taking too much of. We will then reevaluate. DIAGNOSES: 1. Suicidal ideation. 2. Medication noncompliance. Dictated By: Kathy Mcneil DO 12/18/17 02:09 JOB #: [id number] Transcribed By: art 12/18/17 17:16 Electronically signed by: E-Sign: Dr. Kathy Mcneil D.O. 12/21/17 00:13 Page 1 of 1 [facility] BARR Emergency Room Report EMERGENCY REPORT Observed: 12/21/2017 Status: F Source: [facility] 12:13 [facility] REPORT NAME ACCOUNT SEX AGE ADMIT DISCHARGE PT MED. RECORD# NUMBER DATE DATE TYPE BARR, [id number] F 47 12/17/17 3 [place] [id number] ROOM: ER DATE OF : 1970 DICTATING PHYSICIAN: Kathy Mcneil TIME SEEN: 8:45 p.m. HISTORY OF PRESENT ILLNESS: This is a 47-year-old white female who states she wants to go to rehab. She has been snorting her Klonopin up her nose. She also states that she takes more of her medication than she is supposed to. She is supposed to take Klonopin 1 mg twice a day, but sometimes she takes 2-1/2 to 3 mg twice a day. Today, she took 2-1/2. She states the half she snorted up her nose of the Klonopin. She is supposed to take gabapentin 900 mg 3 times a day, but she actually took 1000 mg today is what she is telling me. She denies any suicidal or homicidal ideation. She states she does not snort the gabapentin. In reviewing some of the old history, the past medical history includes mitral valve prolapse, anxiety/depression, bipolar disorder, and seizure disorder. She does take Depakote. She also admits to a history of hypertension and also has gastroesophageal reflux disease and peptic ulcer disease. She states she had a myocardial infarction 12 years ago. She has had previous DVTs. PAST MEDICAL HISTORY: The patient has a past medical history of COPD and asthma, migraine headaches, psychiatric history and a heart condition. PAST SURGICAL HISTORY: Appendectomy. She has had previous back surgery, carpal tunnel surgery, and a Durga filter. ALLERGIES: She is allergic to Ambien, tetracycline and Baclofen. She states that aspirin upsets her stomach. SOCIAL HISTORY: She is a smoker of one pack per day. She denies any alcohol or illicit drugs. REVIEW OF SYSTEMS: She denies any chest pain, shortness of breath, cough, sputum, wheezing, abdominal pain, nausea, vomiting, diarrhea, constipation, melena, hematochezia, headache, numbness, unsteady gait, weakness, neck or back pain, joint pain, skin rash or swelling, hives, hay fever, or swollen glands. Further review of systems is negative. PHYSICAL EXAMINATION: Vital signs: Blood pressure is 115/85, pulse 79, Page 1 of 2 [facility] Emergency Room Report respirations 16, temperature 97.2, pulse oximetry 98% on room air, and weight 151 pounds. The patient is alert and oriented x3. She presently appears in no acute distress. She is pleasant and cooperative. HEENT: Head appears atraumatic. Pupils are equal and reactive to light. Red reflexes are intact bilaterally. Extraocular muscles are intact. No conjunctival injection. No scleral icterus or lid edema. Ears: TMs are intact bilaterally. No erythema noted. No external auditory canal edema or bleeding. Nose exhibits no rhinorrhea or epistaxis. Mouth: Mucous membranes are moist. No pharyngeal erythema. Uvula is midline and elevates. Tongue is coated in blue, which she states is her Klonopin. Neck is supple. Trachea is midline. No JVD or lymphadenopathy. No posterior cervical tenderness. No nuchal rigidity. Lungs are clear to auscultation in all lung abreu. No adventitious sounds are noted. No accessory muscle use. CV: Heart rate and rhythm are regular without murmur. Abdomen is soft and nontender with normoactive bowel sounds x4 quadrants. No guarding or rigidity. No rebound. No palpable abdominal masses. No hepatosplenomegaly. Back exhibits no midline or paraspinal region tenderness. No increased paraspinal muscle rigidity. Negative Mumtaz's sign. Extremities: No edema or cyanosis. Peripheral pulses are intact. No motor or sensory deficits are noted. Hand poly area supervisor are strong and symmetric. Skin is warm and dry. No diaphoresis or rash. Neurologic examination shows the patient to be alert and oriented x4. No motor or sensory deficits are noted. Normal speech. The patient does exhibit somewhat of a flat affect, but she is pleasant and cooperative at this point. EMERGENCY DEPARTMENT COURSE AND TREATMENT: Presently, I have got some screening bloodwork pending here to medically clear the patient, and then we will discuss the case with Crisis Intervention, who has seen this patient in the past. DIAGNOSIS: Medication noncompliance. Dictated By: Kathy Mcneil DO 12/17/17 21:18 JOB #: [id number] Transcribed By: art 12/18/17 09:26 Electronically signed by: E-Sign: Dr. Kathy Mcneil D.O. 12/21/17 00:12 Page 2 of 2 [facility] BARR Emergency Room Report URINE Collected: 12/17/2017 Status: F Source: [facility] 10:10 PM [facility] REPOSITORY TYPE CODE TESTS RESULT OUT OF REFERENCE UNITS RANGE LAB NEGATIVE UR(LOINC) UR NEGATIVE LAB INTERNAL QC(LOINC) INTERNAL QC PASS LAB EXTERNAL QC DONE?(LOINC) EXTERNAL QC YES DONE? Performed By: #### [id number] #### [facility],[address] [place] [address] DRUG SCREEN URINE Collected: 12/17/2017 Status: F Source: [facility] 10:10 PM [facility] REPOSITORY TYPE CODE TESTS RESULT OUT OF REFERENCE UNITS RANGE LAB DRUG SCREEN URINE MEDIC(LOINC) DRUG SCREEN URINE MEDIC Result Comment: DRUG SCREEN - URINE LAB PCP(LOINC) PCP NEG LAB COCAINE(LOINC) COCAINE NEG LAB OPIATES(LOINC) OPIATES NEG LAB AMPHETAMINES(LOINC ) AMPHETAMINES NEG LAB B-DIAZEPINES(LOINC ) B-DIAZEPINES NEG LAB TCA(LOINC) TCA NEG LAB METHADONE(LOINC) METHADONE NEG LAB BARBITURATES(LOINC ) BARBITURATES NEG LAB THC(LOINC) THC NEG Result Comment: PATIENTS RECEIVING PROTON PUMP INHIBITORS MAY DEMONSTRATE FALSE POSITIVE THC/CANNABINOID RESULTS. AN ALTERNATIVE CONFIRMATORY METHOD SHOULD BE CONSIDERED TO VERIFY POSITIVE RESULTS. Performed By: #### [id number] #### [place] [address] URINALYSIS Collected: 12/17/2017 Status: F Source: [facility] 10:10 PM [facility] REPOSITORY TYPE CODE TESTS RESULT OUT OF REFERENCE UNITS RANGE LAB URINALYSIS (LOINC) URINALYSIS Result Comment: URINALYSIS LAB Specimen Type(LOINC) Specimen Type Void LAB Color(LOINC) NORMAL: YELLOW Color p.yel LAB Clarity(LOINC) NORMAL: CLEAR Clarity clear LAB ph(LOINC) NORMAL: 5.0-8.0 ph 6.5 LAB Protein(LOINC) NORMAL: NEGATIVE Protein NEG LAB Glucose(LOINC) NORMAL: NORMAL Glucose NORM LAB Ketone(LOINC) NORMAL: NEGATIVE Ketone NEG LAB Bilirubin(LOINC) NORMAL: NEGATIVE Bilirubin NEG LAB Blood(LOINC) NORMAL: NEGATIVE Blood Abnormal 10 LAB Urobilinog(LOINC) NORMAL: NORMAL Urobilinog NORM LAB Sp [place](LOINC) NORMAL: 1.010-1.030 Sp [place] 1.010 LAB Nitrite(LOINC) NORMAL: NEGATIVE Nitrite NEG LAB Leukocytes(LOINC) NORMAL: NEGATIVE Leukocytes NEG LAB Microscopic(LOINC ) Microscopic SEE BELOW Result Comment: MICROSCOPIC LAB Wbc(LOINC) 0-5/hpf Wbc NONE LAB Rbc(LOINC) 0-3/hpf Rbc 0-5 LAB Casts(LOINC) Casts NONE LAB Crystals(LOINC) Crystals NONE LAB Amorphous(LOINC) NONE Amorphous LAB Bacteria(LOINC) Bacteria TRACE LAB Epi Cells(LOINC) Epi Cells MODERATE LAB Mucous(LOINC) Mucous NONE LAB Yeast(LOINC) Yeast NONE Performed By: #### [id number] #### [place] [id number] CBC Collected: 12/17/2017 Status: F Source: [facility] 9:50 [facility] REPOSITORY TYPE CODE TESTS RESULT OUT OF RANGE REFERENCE UNITS LAB CBC(LOINC) CBC Result Comment: CBC-COMPLETE BLOOD COUNT LAB WBC(LOINC) 4.5 - 10.8 x 10EE3/UL WBC High 11.6 LAB RBC(LOINC) 4.10 - x 10EE6/UL 5.30 RBC 4.14 LAB HEMOGLOBIN(LOINC 12.0 - g/dl ) 16.0 Low HEMOGLOBIN 11.9 LAB HEMATOCRIT(LOINC 34.0 - % ) 46.0 HEMATOCRIT 35.4 LAB MCV(LOINC) 80 - 99 fl MCV 86 LAB MCH(LOINC) 27 - 33 pg MCH 29 LAB MCHC(LOINC) 32 - 36 X10 3 MCHC 34 LAB RDW/CV(LOINC) 12.0 - % 15.6 RDW/CV High 16.4 LAB PLATELET(LOINC) 150 - 450 x10EE3/UL PLATELET 200 LAB MPV(LOINC) 6.6 - 10.5 fl MPV 9.0 Result Comment: AUTOMATED DIFFERENTIAL LAB NEUT %(LOINC) 46.0 - 76.0 % NEUT % 51.1 LAB LYMPH %(LOINC) 20.0 - 45.0 % LYMPH % 35.9 LAB MONOS %(LOINC) 0.0 - 10.0 % MONOS % 9.4 LAB EO %(LOINC) 0.0 - 7.0 % EO % 2.4 LAB BASO %(LOINC) 0.0 - 2.0 % BASO % 1.2 LAB Lymph #(LOINC) 0.80 - 2.80 x10EE3/U L Lymph # High 4.20 LAB Neut #(LOINC) 1.50 - 7.10 x10EE3/U L Neut # 5.90 LAB [place] #(LOINC) 0.20 - 1.00 x10EE3/U L [place] # High 1.10 LAB EO #(LOINC) 0.00 - 0.50 x10EE3/U L EO # 0.30 LAB Baso #(LOINC) 0.00 - 0.10 x10EE3/U L Baso # 0.10 LAB MANUAL DIFF(LOINC) MANUAL DIFF N/A LAB MORPHOLOGY(LOINC ) MORPHOLOGY N/A Result Comment: {CD] Performed By: #### [id number] #### [facility],[address] [place], [place] [id number] ALCOHOL-BLOOD MEDICAL Collected: 12/17/2017 Status: F Source: [facility] 9:50 PM [facility] REPOSITORY TYPE CODE TESTS RESULT OUT OF REFERENCE UNITS RANGE LAB ALCOHOL(FRANK 0 - 50 mg/dl NC) ALCOHOL <8 Performed By: #### [id number] #### [place] [id number] CMP WITH EGFR Collected: 12/17/2017 Status: F Source: [facility] 9:50 PM [facility] REPOSITORY TYPE CODE TESTS RESULT OUT OF RANGE REFERENCE UNITS LAB CMP with eGFR(LOINC) CMP with eGFR Result Comment: COMPREHENSIVE METABOLIC PANEL LAB SODIUM(LOINC) 136 - 145 mmol/l SODIUM 138 LAB POTASSIUM(LOINC) 3.5 - 5.1 mmol/L POTASSIUM 3.5 LAB CHLORIDE(LOINC) 98 - 107 mmol/L CHLORIDE 106 LAB CO2(LOINC) 21.0 - mmol/L 31.0 CO2 21.2 LAB GLUCOSE(LOINC) 74 - 106 mg/dl GLUCOSE Low 72 LAB BUN(LOINC) 6 - 20 mg/dl BUN 10 LAB CREATININE(LOINC) 0.6 - 1.2 mg/dl Low CREATININE 0.5 LAB AST/SGOT(LOINC) 13 - 39 U/L AST/SGOT Low 10 LAB ALK PHOS(LOINC) 38 - 126 U/L ALK PHOS 55 LAB CALCIUM(LOINC) 8.6 - mg/dl 10.2 CALCIUM 9.3 LAB TOTAL PROTEIN(LOINC) 6.4 - 8.3 g/dl TOTAL PROTEIN 6.5 LAB ALBUMIN(LOINC) 3.4 - 4.8 g/dL ALBUMIN 4.0 LAB GLOBULIN(LOINC) 1.5 - 3.8 G/DL GLOBULIN 2.5 LAB A/G RATIO(LOINC) 0.9 - 1.6 A/G RATIO 1.6 LAB TOTAL BILI(LOINC) 0.0 - 1.5 mg/dl TOTAL BILI 0.3 LAB B/C RATIO(LOINC) 0 - 30 ratio B/C RATIO 20 LAB ALT/SGPT(LOINC) 8 - 35 U/L ALT/SGPT Low 5 LAB ANION GAP(LOINC) 10 - 20 mmol/L ANION GAP 14 LAB AGE(LOINC) years AGE 47 LAB eGFR(LOINC) 60 - 999 ML/MINUTE eGFR >60 LAB eGFR(AA)(LOINC) 60 - 999 ML/MINUTE eGFR(AA) >60 Result Comment: ACCORDING TO THE NATIONAL KIDNEY DISEASE EDUCATION PROGRAM(NKDE), A NORMAL eGFR IS A VALUE GREATER THAN OR EQUAL TO 60 ML/MIN/1.73 SQ METERS. CHRONIC KIDNEY DISEASE: <60mL/MIN/1.73 SQ METERS KIDNEY FAILURE: <15mL/MIN/1.73 SQ METERS THIS TEST SHOULD ONLY BE USED FOR PATIENTS 18 YEARS OF AGE AND OLDER. Performed By: #### [id number] #### [place] [address] ACETAMINOPHEN Collected: 12/17/2017 Status: F Source: [facility] 9:50 PM [facility] REPOSITORY TYPE CODE TESTS RESULT OUT OF REFERENCE UNITS RANGE LAB ACETAMINOP 10.0 - 20.0 ug/mL HEN(LOINC) ACETAMINOPHEN <10.0 Performed By: #### [id number] #### [place] [id number] SALICYLATE Collected: 12/17/2017 Status: F Source: [facility] 9:50 PM [facility] REPOSITORY TYPE CODE TESTS RESULT OUT OF REFERENCE UNITS RANGE LAB SALICYLATE 0.0 - 30.0 mg/dl (LOINC) SALICYLATE <4.0 Result Comment: *PATIENTS TREATED WITH SULFASALAZINE MAY GENERATE A FALSE HIGH RESULT FOR SALICYLATE. *PATIENTS TREATED WITH SULFAPYRIDINE MAY GENERATE A FALSE LOW RESULT FOR SALICYLATE. Performed By: #### [id number] #### [place] [id number] EMERGENCY DEPARTMENT Observed: 11/28/2017 Status: F Source: [place] SUMMARY 11:41 PM [facility] REPOSITORY [facility] Medical Records Department [address] [place] [address] [place] [address] Emergency Department Summary 11/28/17 2335 MR#: [id number] Acct: [id number] Name: CHEYENNE BARR Rep #: [id number] : 1970 46 From: Shankar Weinberg MD PCP: Kiki Toshia, [facility] [employer] Status: REG ER - ER Visit Summary Date of Service: 11/28/17 Chief Complaint: Injury left leg History of Present Illness: The patient is a 46 F who had a mechanical fall and fell into a wooden stair. She complains of pain proximal and mid left leg. She reports pain with ambulation. She denies paresthesia, anesthesia motor weakness. She denies any other complaint. There is no history of head trauma. Denies neck pain. Denies any paresthesia, anesthesia motors upper extremity or weakness. Physical Examination: Patient has soft tissue swelling with contusions to the left leg. There is pain palpation over the proximal/mid third of the fibula. There is no pain the patient over the tibia. Patella is nontender. There is no effusion. There is no laxity with varus valgus stress testing. Passive flexion-extension causes discomfort. DP and PT pulses are palpable. There is no pain the patient over the lateral medial malleolus. Test Results: Two-view x-ray of the tibia and fibula were obtained and reveals that the prior anterior proximal tibial plateau has healed. There is chronic deformity of the fibular head. There is no acute fracture noted. Emergency Department Course and Treatment: X-ray was obtained to evaluate for fracture. She also was medicated with one [place] tablet Treatment Plan: Rest, ice and anti-inflammatory Disposition: Discharged home with spouse Impression: Mechanical fall with injury initial encounter Contusion left leg secondary to mechanical fall This note was generated with Sprout[employer] dictation software. It may contain incorrect words, spelling, and punctuation that were not noted in review of the chart prior to signing ED Disposition - Plan for ED Patient: Disposition: Home or Assisted Living Chief Complaint: Lower Extremity Injury Instructions: ED Contusion Lower Ext Referrals: Kiki Pope, HERNANDEZ-C [Primary Care Provider] - 1 Week if not improving What to do if you have Problems For any increased pain, shortness of breath, bleeding, nausea or vomiting, chest pain, or any unexpected problems, contact your Primary Care Provider. Call [facility] ([phone]) or report to the closest Emergency Room. Call 911 if necessary. 11/28/17 0816 <Electronically signed by Shankar Weinberg MD> Date Shankar Weinberg MD Cosigner Signature (If Indicated): Date CC: MARIANO Pope TIBIA AND FIBULA Observed: 11/28/2017 Status: F Source: REENA 2 VIEWS 10:51 PM [facility] REPOSITORY [facility] Imaging Services [address] [place] [address] Tibia AND Fibula 2 Views MR#: [id number] Acct: [id number] Name: CHEYENNE BARR Rep #: [id number] : 1970 F 46 From: Shelby Justice MD PCP: MARIANO Kothari Status: REG ER Study: Tibia AND Fibula 2 Views Date of Exam: 11/28/17 Exam# [id number] Ordering Dr: Shankar Weinberg MD STUDY: X-RAY - LEFT TIBIA AND FIBULA REASON FOR EXAM: Female, 46 years old. Fell, left knee pain. TECHNIQUE: 3 view(s) of the tibia and fibula were obtained. COMPARISON: None. FINDINGS: There is no acute fracture or dislocation. Old healed fracture deformities of the fibular head and proximal tibia, particularly the lateral tibial plateau, are noted. Joint spaces are otherwise well-maintained. Soft tissues and bony structures are otherwise unremarkable. RAD/Tibia AND Fibula 2 Views IMPRESSION: 1. No acute trauma. Old healed trauma of the proximal tibia and fibular head. Electronically Signed: Shelby Justice MD at 23:47 EDT Tel , Service support , CC: MARIANO Pope; Shankar Weinberg MD Track Layer Head: Signed CBC WITH DIFF Collected: 11/26/2017 Status: F Source: [facility] 12:25 AM SYSTEM REPOSITORY TYPE CODE TESTS RESULT OUT OF RANGE REFERENCE UNITS LAB DTYP DIFF TYPE Result Comment: AUTO DIFF SMEAR REVIEWED AND FOUND CONSISTENT WITH AUTOMATED DIFFERENTIAL LAB IMGP 0.0-1.0 % IMMATURE NEUT % 0.40 LAB NEUT 50-70 % Low NEUTROPHIL 29.70 LAB LYPH 20-40 % LYMPHOCYTE High 51.80 LAB MONO 0-8 % MONOCYTE High 13.60 LAB EOS 0-3 % EOSINOPHIL High 3.60 LAB BASO 0-1 % BASOPHIL 0.90 LAB AIMG 0.0-0.1 K/UL AB IMMATURE NEUT 0.04 LAB AGRA 1.8-7.7 K/UL ABS NEUTROPHILS 2.66 LAB ALYM 1.2-3.2 K/UL ABS LYMPH High 4.64 LAB ARACELI 0-0.8 K/UL ABS MONOCYTE High 1.22 LAB AEOS 0-0.45 K/UL ABS EOS 0.32 LAB ABAS 0.00-0.22 K/UL ABS BASO 0.08 LAB WBC 4.5-11.0 K/UL WBC COUNT 9.0 LAB RBC 4.0-4.9 M/UL Low RBC COUNT 3.79 LAB HGB 12.0-15.0 GM/DL Low HEMOGLOBIN 11.1 LAB HCT 36-44 % Low HEMATOCRIT 33.8 LAB MCV 80-100 FL MCV 89.2 LAB MCH 26-34 PG MCH 29.3 LAB MCHC 31-37 % MCHC 32.8 LAB RDWS 37.0-54.0 FL RDW-SD 54.0 LAB RDWC 11.7-15.0 % RDW-CV High 16.5 LAB PLT 150-450 K/UL PLATELET 390 LAB MPV 7.0-12.6 CU MEAN PLT VOL 9.5 LAB NRBC 0 /100 WBC NRBC'S 0 LAB ANC ABS.NEUT.CALCULATE D Result Comment: 2.66 Performed at [address] [address] Performed By: #### CBCD #### Main Laboratory [address] [address] COMPREHENSIVE METABOLIC Collected: 11/26/2017 Status: F Source: [facility] 12:25 AM SYSTEM REPOSITORY TYPE CODE TESTS RESULT OUT OF REFERENCE UNITS RANGE LAB CA 8.5-10.4 MG/DL TOTAL CALCIUM 9.2 LAB AST 5-40 U/L AST 15 LAB ALKP 35-125 U/L ALK PHOSPHATASE 80 LAB TBIL 0.1-1.2 BILIRUBIN,TOTAL Result Comment: 0.2 LESS THAN LAB TP 5.9-7.9 G/DL PROTEIN, TOTAL 6.4 LAB ALB 3.5-5.0 GM/DL ALBUMIN 4.0 LAB GLOB 1.9-3.7 G/DL GLOBULIN 2.4 LAB AGR 1.5-3.0 RATIO A/G RATIO 1.7 LAB NA 133-145 MMOL/L SODIUM 136 LAB K 3.4-5.1 MMOL/L POTASSIUM 4.3 LAB CL 97-107 MMOL/L CHLORIDE 97 LAB CO2 24-31 MMOL/L Low CARBON DIOXIDE 23 LAB ANGP 0-19 MMOL/L ANION GAP 16 LAB BUN 8-25 MG/DL UREA NITROGEN 16 LAB CRET 0.4-1.6 MG/DL CREATININE 0.4 LAB BUCR 8-21 RATIO BUN/CREAT. High RATIO 40.0 LAB GLU 65-99 MG/DL GLUCOSE 91 LAB ALT 5-40 U/L ALT 13 LAB EGFR ESTIMATED GFR Result Comment: 184 GFR ml/min/1.73m2 Stage ----- 90 1 60-89 2 30-59 3 15-29 4 <15 5 For -Americans, multiply EGFR result by 1.210 Calculation not validated for patients under 18 years of age. Performed at [place] [address] Performed By: #### CPMP #### Main Laboratory [address] [address] TROPONIN T Collected: 11/26/2017 Status: F Source: [facility] 12:25 AM SYSTEM REPOSITORY TYPE CODE TESTS RESULT OUT OF REFERENCE UNITS RANGE LAB TRO 0.0-0.1 TROPONIN T Result Comment: 0.01 LESS THAN Performed at [address] [address] Performed By: #### TROP #### Main Laboratory [address] [address] EKG Observed: 11/25/2017 Status: F Source: [facility] 11:59 PM SYSTEM REPOSITORY EKG Ventricular Rate : 105 BPM Atrial Rate : 105 BPM P-R Interval : 194 ms QRS Duration : 92 ms Q-T Interval : 350 ms QTC Calculation(Bezet) : 462 ms Calculated P Balm : 54 degrees Calculated R Balm : 51 degrees Calculated T Balm : 57 degrees Diagnosis:Sinus tachycardia Otherwise normal ECG No previous ECGs available Confirmed by CARLOS DELUNA ([id number]) on 11/26/2017 10:04:14 AM EMERGENCY REPORT Observed: 11/25/2017 Status: F Source: [facility] 4[facility]04 [facility] NAME ACCOUNT SEX AGE ADMIT DISCHARGE PT MED. RECORD# NUMBER DATE DATE TYPE MOMO, [id number] F 46 11/20/17 11/21/17 3 [place] [id number] ROOM: ER DATE OF : 1970 DICTATING PHYSICIAN: Kathy Mcneil ADDENDARIANNE DIAGNOSES: 1. Suicidal ideation. 2. Auditory hallucinations. PLAN/DISPOSITION: Patient has been accepted at [facility]. Presently we are arranging ambulance transportation to get her there for her admission. Dictated By: Kathy Mcneil DO 11/21/17 06:20 JOB #: [id number] Transcribed By: 11/21/17 16:19 Electronically signed by: E-Sign: Dr. Kathy Mcneil D.O. 11/25/17 16:04 Page 1 of 1 BARR, CHEYENNE Emergency Room Report EMERGENCY REPORT Observed: 11/25/2017 Status: F Source: [facility] 4:03 PM [facility] REPORT NAME ACCOUNT SEX AGE ADMIT DISCHARGE PT MED. RECORD# NUMBER DATE DATE TYPE MOMO, [id number] F 46 11/20/17 11/21/17 3 [place] [id number] ROOM: ER DATE OF : 1970 DICTATING PHYSICIAN: Kathy Mcneil ADDENDUM DIAGNOSTIC DATA: Sodium was 137, potassium 3.8, chloride 103, and CO2 of 23.7. BUN was 12, creatinine 0.6, and glucose 84. Liver functions all came back within normal limits. Acetaminophen was less than 10. Salicylate was less than 4. Alcohol was less than 8. Urine drug screen came back all negative. White count was 9.4, hemoglobin 11.9, hematocrit 34.6, and platelet count 335,000. Chest x-ray showed no acute infiltrate or failure. EMERGENCY DEPARTMENT COURSE AND TREATMENT: Presently, I have medically cleared the patient. [facility] has been here and saw the patient and interviewed her. The crisis counselor is presently working on getting the patient admitted at [facility]. She has been there before, actually quite recently, just within the last several weeks. She is agreeable to going there, although [facility] did say they cannot guarantee that they have a bed open, but they are working on that. We will decide on a final disposition once we know their bed availability. DIAGNOSES: 1. Suicidal ideation. 2. Auditory hallucinations. 3. Bipolar disorder. Dictated By: Kathy Mcneil DO 11/20/17 21:51 JOB #: [id number] Transcribed By: art 11/21/17 13:02 Electronically signed by: E-Sign: Dr. Kathy Mcneil D.O. 11/25/17 16:03 Page 1 of 1 CHEYENNE BARR Emergency Room Report EMERGENCY REPORT Observed: 11/25/2017 Status: F [facility] RE[facility] NAME ACCOUNT SEX AGE ADMIT DISCHARGE PT MED. RECORD# NUMBER DATE DATE TYPE MOMO, [id number] F 46 11/20/17 11/21/17 3 [place] [id number] ROOM: ER DATE OF : 1970 DICTATING PHYSICIAN: Kathy Mcneil TIME SEEN: 7:20 p.m. HISTORY OF PRESENT ILLNESS: This is a 46-year-old white female complaining of suicidal ideation. She states that her daughter was supposed to come and visit her today but did not, and that got her very upset and made her start feeling suicidal. She states her plan is to overdose, but she did not. She states she has been hearing voices in her head. They tell her to hurt herself, and they also tell her that she is worthless. The voices also tell her that her kids hate her. Basically, the patient right now is telling me, I don't care if I live or . The patient states that she was admitted to [facility] about 1-1/2 weeks ago, and if she has to be admitted she would like to go back there. The patient is tearful and crying. Her primary care is Kiki Pope at [facility]. PAST MEDICAL HISTORY: Mitral valve prolapse, anxiety/depression, bipolar disorder, and seizure disorder. She does take Depakote. She also admits to a history of hypertension, and she also has gastroesophageal reflux and peptic ulcer disease. She states she had a myocardial infarction 12 years ago. She has had previous DVTs. PAST SURGICAL HISTORY: She states she does have a Durga filter. She states she also has had an appendectomy, and she has had previous lower back surgery. ALLERGIES: Tetracycline, baclofen, and Ambien. She also states that aspirin upsets her stomach. SOCIAL HISTORY: The patient is a smoker of one pack per day. She lives with her boyfriend. She denies any alcohol or illicit drug use. REVIEW OF SYSTEMS: She denies any chest pain, shortness of breath, cough, sputum, wheezing, abdominal pain, nausea, vomiting, diarrhea, constipation, melena, hematochezia, headache, numbness, unsteady gait, weakness, neck or back pain, joint pain, skin rash or swelling, hives, hay fever, or swollen glands. The patient does complain of suicidal ideation. She also complains of auditory hallucinations. Further review of systems is negative. PHYSICAL EXAMINATION: Vital signs: Blood pressure is 109/80, pulse 100, respirations 18, temperature 97.8, pulse oximetry 99%, and weight 151 pounds. The Page 1 of 2 [facility] Emergency Room Report patient is alert and oriented x3. She presently appears somewhat depressed and is tearful and crying. HEENT: Head appears atraumatic. Pupils are equal and reactive to light. Red reflexes are intact bilaterally. Extraocular muscles are intact. No conjunctival injection. No scleral icterus or lid edema. Ears: TMs are intact bilaterally. No erythema is noted. No external auditory canal edema or bleeding. Nose exhibits no rhinorrhea or epistaxis. Mouth: Mucous membranes are moist. No pharyngeal erythema. Uvula is midline and elevates. Neck is supple. Trachea is midline. No JVD or lymphadenopathy. No posterior cervical tenderness. No nuchal rigidity. Lungs are clear to auscultation in all lung abreu. No adventitious sounds are noted. No accessory muscle use. CV: Heart rate and rhythm are regular without murmur. Abdomen is soft and nontender with normoactive bowel sounds x4 quadrants. No guarding or rigidity. No rebound. No palpable abdominal masses. No hepatosplenomegaly. Back exhibits no midline or paraspinal region tenderness. No increased paraspinal muscle rigidity. Negative Mumtaz's sign. Extremities: No edema or cyanosis. Peripheral pulses are intact. No motor or sensory deficits are noted. Hand telesales supervisor is strong and symmetric. Skin is warm and dry. No diaphoresis or rash. Neurologic examination shows the patient to be alert and oriented x4. No motor or sensory deficits are noted. The patient has normal speech, but she is somewhat tearful and crying. She has somewhat of an anxious but depressed affect. DIAGNOSTIC DATA: EKG at 1951 hours shows a normal sinus rhythm at a rate of [address]-segment changes are noted. Balm is approximately 30 degrees. EMERGENCY DEPARTMENT COURSE AND TREATMENT: Presently, I have ordered the medical work-up to medically clear this patient. The feed in worker is already here seeing another patient, so she came by and interviewed this patient as well. I listened to most of it, and the patient told her pretty much exactly what she had told me. Her story is very consistent. Presently, we will get a CBC, CMP, EKG, chest x-ray, EtOH level, urine drugs of abuse, urinalysis, and aspirin and Tylenol levels and then we will reevaluate. DIAGNOSIS: Suicidal ideation. Dictated By: Kathy Mcneil DO 11/20/17 19:56 JOB #: [id number] Transcribed By: art 11/21/17 10:33 Electronically signed by: E-Sign: Dr. Kathy Mcneil D.O. 11/25/17 16:02 Page 2 of 2 BARR HCEYENNE Emergency Room Report CBC Collected: 11/20/2017 Status: F Source: [facility] 8:25 PM [facility] REPOSITORY TYPE CODE TESTS RESULT OUT OF RANGE REFERENCE UNITS LAB CBC(LOINC) CBC Result Comment: CBC-COMPLETE BLOOD COUNT LAB WBC(LOINC) 4.5 - 10.8 x 10EE3/UL WBC 9.4 LAB RBC(LOINC) 4.10 - x 10EE6/UL 5.30 RBC Low 3.98 LAB HEMOGLOBIN(LOINC 12.0 - g/dl ) 16.0 Low HEMOGLOBIN 11.9 LAB HEMATOCRIT(LOINC 34.0 - % ) 46.0 HEMATOCRIT 34.6 LAB MCV(LOINC) 80 - 99 fl MCV 87 LAB MCH(LOINC) 27 - 33 pg MCH 30 LAB MCHC(LOINC) 32 - 36 X10 3 MCHC 34 LAB RDW/CV(LOINC) 12.0 - % 15.6 RDW/CV High 17.6 LAB PLATELET(LOINC) 150 - 450 x10EE3/UL PLATELET 335 LAB MPV(LOINC) 6.6 - 10.5 fl MPV 7.6 Result Comment: AUTOMATED DIFFERENTIAL LAB NEUT %(LOINC) 46.0 - 76.0 % Low NEUT % 39.9 LAB LYMPH %(LOINC) 20.0 - 45.0 % LYMPH % High 45.8 LAB MONOS %(LOINC) 0.0 - 10.0 % MONOS % High 10.8 LAB EO %(LOINC) 0.0 - 7.0 % EO % 2.7 LAB BASO %(LOINC) 0.0 - 2.0 % BASO % 0.8 LAB Lymph #(LOINC) 0.80 - 2.80 x10EE3/U L Lymph # High 4.30 LAB Neut #(LOINC) 1.50 - 7.10 x10EE3/U L Neut # 3.80 LAB [place] #(LOINC) 0.20 - 1.00 x10EE3/U L [place] # 1.00 LAB EO #(LOINC) 0.00 - 0.50 x10EE3/U L EO # 0.30 LAB Baso #(LOINC) 0.00 - 0.10 x10EE3/U L Baso # 0.10 LAB MANUAL DIFF(LOINC) MANUAL DIFF N/A LAB MORPHOLOGY(LOINC ) MORPHOLOGY N/A Result Comment: {CD] Performed By: #### [id number] #### [facility],[address] [place] [address] CMP WITH EGFR Collected: 11/20/2017 Status: F Source: [facility] 8:25 PM [facility] REPOSITORY TYPE CODE TESTS RESULT OUT OF RANGE REFERENCE UNITS LAB CMP with eGFR(LOINC) CMP with eGFR Result Comment: COMPREHENSIVE METABOLIC PANEL LAB SODIUM(LOINC) 136 - 145 mmol/l SODIUM 137 LAB POTASSIUM(LOINC) 3.5 - 5.1 mmol/L POTASSIUM 3.8 LAB CHLORIDE(LOINC) 98 - 107 mmol/L CHLORIDE 103 LAB CO2(LOINC) 21.0 - mmol/L 31.0 CO2 23.7 LAB GLUCOSE(LOINC) 74 - 106 mg/dl GLUCOSE 84 LAB BUN(LOINC) 6 - 20 mg/dl BUN 12 LAB CREATININE(LOINC) 0.6 - 1.2 mg/dl CREATININE 0.6 LAB AST/SGOT(LOINC) 13 - 39 U/L AST/SGOT 16 LAB ALK PHOS(LOINC) 38 - 126 U/L ALK PHOS 63 LAB CALCIUM(LOINC) 8.6 - mg/dl 10.2 CALCIUM 9.3 LAB TOTAL PROTEIN(LOINC) 6.4 - 8.3 g/dl TOTAL PROTEIN 6.6 LAB ALBUMIN(LOINC) 3.4 - 4.8 g/dL ALBUMIN 3.9 LAB GLOBULIN(LOINC) 1.5 - 3.8 G/DL GLOBULIN 2.7 LAB A/G RATIO(LOINC) 0.9 - 1.6 A/G RATIO 1.4 LAB TOTAL BILI(LOINC) 0.0 - 1.5 mg/dl TOTAL BILI 0.2 LAB B/C RATIO(LOINC) 0 - 30 ratio B/C RATIO 20 LAB ALT/SGPT(LOINC) 8 - 35 U/L ALT/SGPT 14 LAB ANION GAP(LOINC) 10 - 20 mmol/L ANION GAP 14 LAB AGE(LOINC) years AGE 46 LAB eGFR(LOINC) 60 - 999 ML/MINUTE eGFR >60 LAB eGFR(AA)(LOINC) 60 - 999 ML/MINUTE eGFR(AA) >60 Result Comment: ACCORDING TO THE NATIONAL KIDNEY DISEASE EDUCATION PROGRAM(NKDE), A NORMAL eGFR IS A VALUE GREATER THAN OR EQUAL TO 60 ML/MIN/1.73 SQ METERS. CHRONIC KIDNEY DISEASE: <60mL/MIN/1.73 SQ METERS KIDNEY FAILURE: <15mL/MIN/1.73 SQ METERS THIS TEST SHOULD ONLY BE USED FOR PATIENTS 18 YEARS OF AGE AND OLDER. Performed By: #### [id number] #### [facility],[address] [place] [address] ACETAMINOPHEN Collected: 11/20/2017 Status: F Source: [facility] 8:25 PM [facility] REPOSITORY TYPE CODE TESTS RESULT OUT OF REFERENCE UNITS RANGE LAB ACETAMINOP 10.0 - 20.0 ug/mL HEN(LOINC) ACETAMINOPHEN <10.0 Performed By: #### [id number] #### [facility],[address] [place] [address] SALICYLATE Collected: 11/20/2017 Status: F Source: [facility] 8:25 PM [facility] REPOSITORY TYPE CODE TESTS RESULT OUT OF REFERENCE UNITS RANGE LAB SALICYLATE 0.0 - 30.0 mg/dl (LOINC) SALICYLATE <4.0 Result Comment: *PATIENTS TREATED WITH SULFASALAZINE MAY GENERATE A FALSE HIGH RESULT FOR SALICYLATE. *PATIENTS TREATED WITH SULFAPYRIDINE MAY GENERATE A FALSE LOW RESULT FOR SALICYLATE. Performed By: #### [id number] #### [facility],[address] [place] [address] ALCOHOL-BLOOD MEDICAL Collected: 11/20/2017 Status: F Source: [facility] 8:25 [facility] REPOSITORY TYPE CODE TESTS RESULT OUT OF REFERENCE UNITS RANGE LAB ALCOHOL(FRANK 0 - 50 mg/dl NC) ALCOHOL <8 Performed By: #### [id number] #### [facility],[address] [place] [id number] CHEST 1 VIEW Observed: 11/20/2017 Status: F Source: [facility] 8:08 [place] [address] Patient: CHEYENNE BARR Phone#: : 1970 Age: 46 Gender: F Pt. Type: ER Account: [id number] Location: [facility] Ordering: KATHY MCNEIL Exam Date: 11/20/2017/19:44 Family Phys: NO DOCTOR Charge Code: [id number] Physician: Cataño Order #: [id number] DLP Dose#: PROCEDURE: X-RAY CHEST 1 VIEW COMPARISON: [facility], , CHEST 1 VIEW, 07/19/2017, 22:05. INDICATIONS: Anxiety FINDINGS: LUNGS: Normal. No significant pulmonary parenchymal abnormalities. VASCULATURE: Normal. Unremarkable pulmonary vasculature. CARDIAC: Normal. No cardiac silhouette abnormality or cardiomegaly. MEDIASTINUM: Normal. No visible mass or adenopathy. PLEURA: Normal. No effusion or pleural thickening. BONES: Degenerative changes of the spine. OTHER: Negative. CONCLUSION: No acute disease. No significant change has occurred. Dictated by: Araseli Galvan MD on 11/22/2017 at 19:50 Approved by: Araseli Galvan MD on 11/22/2017 at 19:50 URINALYSIS Collected: 11/20/2017 Status: F Source: [facility] 7:41 PM [facility] REPOSITORY TYPE CODE TESTS RESULT OUT OF REFERENCE UNITS RANGE LAB URINALYSIS (LOINC) URINALYSIS Result Comment: URINALYSIS LAB Specimen Type(LOINC) Specimen Type UNSPECIFIED LAB Color(LOINC) NORMAL: YELLOW Color YELLOW LAB Clarity(LOINC) NORMAL: CLEAR Clarity clear LAB ph(LOINC) NORMAL: 5.0-8.0 ph 7 LAB Protein(LOINC) NORMAL: NEGATIVE Protein NEG LAB Glucose(LOINC) NORMAL: NORMAL Glucose NORM LAB Ketone(LOINC) NORMAL: NEGATIVE Ketone NEG LAB Bilirubin(LOINC) NORMAL: NEGATIVE NEG Bilirubin LAB Blood(LOINC) NORMAL: NEGATIVE Blood 25 Abnormal LAB Urobilinog(LOINC NORMAL: ) NORMAL NORM Urobilinog LAB Sp NORMAL: [place](LOINC) 1.010-1.030 Sp 1.010 [place] LAB Nitrite(LOINC) NORMAL: NEGATIVE Nitrite NEG LAB Leukocytes(LOINC NORMAL: ) NEGATIVE 25 Abnormal Leukocytes LAB Microscopic(LOIN C) SEE Microscopic BELOW Result Comment: MICROSCOPIC LAB Wbc(LOINC) 0-5/hpf Wbc 1-5 LAB Rbc(LOINC) 0-3/hpf Rbc 0-5 LAB Casts(LOINC) Casts NONE LAB Crystals(LOINC) Crystals NONE LAB Amorphous(LOINC) Amorphous NONE LAB Bacteria(LOINC) Bacteria TRACE LAB Epi Cells(LOINC) Epi Cells MANY LAB Mucous(LOINC) Mucous TRACE LAB Yeast(LOINC) Yeast NONE Performed By: #### [id number] #### [facility],[address] [place] [address] DRUG SCREEN URINE Collected: 11/20/2017 Status: F Source: [facility] 7:41 PM [facility] REPOSITORY TYPE CODE TESTS RESULT OUT OF REFERENCE UNITS RANGE LAB DRUG SCREEN URINE MEDIC(LOINC) DRUG SCREEN URINE MEDIC Result Comment: DRUG SCREEN - URINE LAB PCP(LOINC) PCP NEG LAB COCAINE(LOINC) COCAINE NEG LAB OPIATES(LOINC) OPIATES NEG LAB AMPHETAMINES(LOINC ) AMPHETAMINES NEG LAB B-DIAZEPINES(LOINC ) B-DIAZEPINES NEG LAB TCA(LOINC) TCA NEG LAB METHADONE(LOINC) METHADONE NEG LAB BARBITURATES(LOINC ) BARBITURATES NEG LAB THC(LOINC) THC NEG Result Comment: PATIENTS RECEIVING PROTON PUMP INHIBITORS MAY DEMONSTRATE FALSE POSITIVE THC/CANNABINOID RESULTS. AN ALTERNATIVE CONFIRMATORY METHOD SHOULD BE CONSIDERED TO VERIFY POSITIVE RESULTS. Performed By: #### [id number] #### [facility],[address] [place] [address] EMERGENCY REPORT Observed: 11/10/2017 Status: F Source: [facility] 7:19 AM [facility] REPORT NAME ACCOUNT SEX AGE ADMIT DISCHARGE PT MED. RECORD# NUMBER DATE DATE TYPE BARR, [id number] F 46 11/07/17 11/08/17 3 CHEYENNE [id number] ROOM: ER DATE OF : 1970 DICTATING PHYSICIAN: Kathy Mcneil ADDENDUM: EMERGENCY DEPARTMENT COURSE AND TREATMENT: The patient had a left axilla abscess incised and drained here just last week. She states she is on antibiotics for that, and she needs a dose of her antibiotic. I went back and looked at her chart. They placed her on Bactrim. When you look at her left axilla, it looks very good at this point. There is a small linear incision there that looks to be healing well and there is no redness, swelling, warmth, or purulent drainage. I gave her a dose of Bactrim here since that is what they had prescribed her when she was here, and we gave her some ibuprofen for pain. DIAGNOSES: 1. Suicidal ideation. 2. Auditory hallucinations. PLAN/DISPOSITION: The patient has been accepted for admission at [facility]. We are presently waiting for ambulance transportation, which I am told would be around 9:45 a.m., and she will be transported to [facility]. Dictated By: Kathy Mcneil DO 11/08/17 08:13 JOB #: [id number] Transcribed By: gildardo 11/08/17 12:33 Electronically signed by: E-Sign: Dr. Kathy Mcneil D.O. 11/10/17 07:18 Page 1 of 1 CHEYENNE BARR Emergency Room Report EMERGENCY REPORT Observed: 11/10/2017 Status: F [facility] REPORT NAME ACCOUNT SEX AGE ADMIT DISCHARGE PT MED. RECORD# NUMBER DATE DATE TYPE BARR, [id number] F 46 11/07/17 3 CHEYENNE [id number] ROOM: ER DATE OF : 1970 DICTATING PHYSICIAN: Kathy ANTONIO EMERGENCY DEPARTMENT COURSE AND TREATMENT: I just spoke with Dr. Sampson. In light of the patient's aortic stenosis, we cannot do a stress test. She will need a heart catheterization. Dr. Almeida, her Professional Nurse, does go to [place], so he recommended a transfer to [facility] for further workup. We cannot do the heart catheterization here. I spoke with the patient. She is agreeable with this. So presently I do have a page into the [place] Transfer Line and will see if we can get her a bed over at [facility] and can see the hat lacer there for further evaluation. Dictated By: Kathy Mcneil DO 11/08/17 00:14 JOB #: [id number] Transcribed By: latia 11/08/17 10:58 Electronically signed by: E-Sign: Dr. Kathy Mcneil D.O. 11/10/17 07:18 Page 1 of 1 [facility]RE Emergency Room Report EMERGENCY REPORT Observed: 11/10/2017 Status: F [facility] REPORT NAME ACCOUNT SEX AGE ADMIT DISCHARGE PT MED. RECORD# NUMBER DATE DATE TYPE BARR, [id number] F 46 11/07/17 3 CHEYENNE [id number] ROOM: ER DATE OF : 1970 DICTATING PHYSICIAN: Kathy ANTONIO DIAGNOSTIC DATA: White count was 9.5, hemoglobin 12.3, hematocrit 36.5, platelet count was 365,000. Sodium 134, potassium 4, chloride 101, CO2 25.2, BUN 10, creatinine 0.7. Glucose 84. Liver functions came back within normal limits. Urinalysis showed 2+ bacteria, many epithelials, 6 to 10 white cells. I did give the patient a dose of Bactrim and we did send it for urine culture. Her test was negative. Her acetaminophen was less than 10. Salicylate was less than 4. Alcohol was less than 8. EMERGENCY DEPARTMENT COURSE AND TREATMENT: The patient kept complaining of a headache after I gave her ibuprofen. She does have a history of migraines, but she kept complaining and it kind of concerned me, so I sent her down for a CT brain, but it did come back no acute intracranial hemorrhage, mass or midline shift. No acute skull fracture. Some atrophy for age. Presently we are waiting on Crisis for their evaluation. The patient is medically cleared. Dictated By: Kathy Mcneil DO 11/07/17 23:54 JOB #: [id number] Transcribed By: latia 11/08/17 10:52 Electronically signed by: E-Sign: Dr. Kathy Mcneil D.O. 11/10/17 07:18 Page 1 of 1 CHEYENNE BARR Emergency Room Report EMERGENCY REPORT Observed: 11/10/2017 Status: F Source: [facility] 7:18 AM [facility] REPORT NAME ACCOUNT SEX AGE ADMIT DISCHARGE PT MED. RECORD# NUMBER DATE DATE TYPE MOMO, [id number] F 46 11/07/17 3 CHEYENNE [id number] ROOM: ER DATE OF : 1970 DICTATING PHYSICIAN: Kathy Mcneil CHIEF COMPLAINT/HISTORY OF PRESENT ILLNESS: This is a 46-year-old white female with auditory hallucinations. She states she has been hearing voices since early this morning. The voices have been telling her to hurt herself and to hurt other people. She states that, There has been a few times I wanted to hurt a few people. She also complains of a migraine headache. She does have a longstanding history of migraine headaches and she usually takes Stadol nasal spray for migraines. Her plan as far as hurting herself, was to overdose. She states that she called the Crisis [facility] today because felt like she needed help and she states that, I do not trust myself. Crisis called the cancer researcher's office and they came out to her home and got her and brought her here for an evaluation. PAST MEDICAL HISTORY: COPD and asthma, mitral valve prolapse, depression, anxiety, bipolar disorder, peptic ulcer disease, hypertension, migraine headaches, seizure disorder. PAST SURGICAL HISTORY: Include appendectomy. She has had previous carpal tunnel surgery and back surgery. ALLERGIES: Baclofen, tetracycline and Ambien. SOCIAL HISTORY: She is a smoker of 1 pack per day. She denies any use of alcohol. She denies any use of illicit drugs. She lives at home with her family. REVIEW OF SYSTEMS: The patient denies any chest pain, shortness of breath, cough, sputum, wheezing, abdominal pain, nausea, vomiting, diarrhea, constipation, melena, hematochezia. Does admit to a migraine headache. Denies any neck or back pain, joint pain, skin rashes or swelling, hives, hayfever, swollen glands. Denies any numbness, tingling, weakness. Further review of systems negative. PHYSICAL EXAMINATION: Blood pressure is 118/82, pulse 84, respirations 18, temperature 97.7, pulse oximetry 96% on room air. Weight 151 pounds. Primary care physician, Kiki Pope. The patient is alert and oriented x3. She presently appears in no acute distress. She is pleasant and cooperative. HEENT: Head appears atraumatic. Pupils are equal and reactive to light. Red reflex intact bilaterally. Extraocular muscles intact. No conjunctival injection. No scleral icterus or lid edema. Ears: TMs intact bilaterally. No erythema noted. The left TM was somewhat difficult to visualize, as Page 1 of 2 CHEYENNE BARR Emergency Room Report there is a lot of cerumen in the left external canal, but I could see around part of it and visualize the TM. There is no external auditory canal edema or bleeding. No mastoid tenderness or swelling. The nose exhibits no rhinorrhea or epistaxis. Mouth: Mucous membranes are moist. No pharyngeal erythema. Uvula is midline and elevates. Teeth intact. Neck is supple. Trachea is midline. No JVD or lymphadenopathy. No posterior cervical tenderness. No nuchal rigidity. Lungs are clear to auscultation in all lung abreu. No adventitious sounds are noted. No accessory muscle use. CVS: Heart rate and rhythm is regular without murmur. Abdomen is soft and nontender with normoactive bowel sounds x4 quadrants. No guarding or rigidity. No rebound. No palpable abdominal masses or hepatosplenomegaly. Back exhibits no midline or paraspinal region tenderness. No increased paraspinal muscle rigidity. Negative Mumtaz sign. Extremities: No edema or cyanosis. Peripheral pulses are intact. No motor or sensory deficits are noted. Hand poly area supervisor strong, symmetric. Skin is warm and dry. No diaphoresis or rash. Neurologic examination shows the patient to be alert and oriented x4. No motor or sensory deficits are noted. Normal speech. She does have somewhat of a flat affect but she is pleasant, cooperative. EMERGENCY DEPARTMENT COURSE AND TREATMENT: I did give the patient ibuprofen 800 mg p.o. here for her migraine. I do have screening blood work pending. When that comes back, we will call Crisis and have them come out and see the patient. DIAGNOSES: 1. Suicidal ideation. 2. Homicidal ideation. Dictated By: Kathy Mcneil DO 11/07/17 21:40 JOB #: [id number] Transcribed By: latia 11/08/17 08:58 Electronically signed by: E-Sign: Dr. Kathy Mcneil D.O. 11/10/17 07:18 Page 2 of 2 CHEYENNE BARR Emergency Room Report EMERGENCY REPORT Observed: 11/08/2017 Status: F Source: [facility] 8:35 PM [facility]PORT NAME ACCOUNT SEX AGE ADMIT DISCHARGE MED. RECORD# NUMBER DATE DATE TYPE BARR, [id number] F 46 11/04/17 11/04/17 3 CHEYENNE [id number] ROOM: ER DATE OF : 1970 DICTATING PHYSICIAN: Gerardo Flor CHIEF COMPLAINT: Painful swelling to left armpit. HISTORY OF PRESENT ILLNESS: The patient began about 3 to 4 days ago with what appeared to be a small pimple under her left arm. She tried to pop it a few times without significant improvement. It has become increasingly larger and more painful. No fever or chills. No drainage. No other complaints. The pain is worse with arm movement. PAST MEDICAL HISTORY: Significant for hypertension and asthma. PAST SURGICAL HISTORY: She has had previous appendectomy, carpal tunnel surgery, and orthopedic surgery. MEDICATIONS: Per med rec list. ALLERGIES: Per allergy list. SOCIAL HISTORY: She lives at home with family. She does smoke. She does not drink alcohol. PHYSICAL EXAMINATION: This is a 46-year-old female alert, appropriate, does not appear toxic. Vital signs: Essentially normal, as noted on the chart. Examination is focused to the left axilla. Reveals a small reddened indurated lump about 1 cm across. There is a central nondraining pustule. The area is quite tender, but no surrounding redness or tenderness. Good peripheral pulses and capillary refill. Normal neurovascular examination. PROCEDURE NOTE: Some topical lidocaine cream was placed over the area and then 15 to 20 minutes later local 1% lidocaine with epinephrine was used to anesthetize the area over the abscess. About a 1 to 1.5 cm incision was used over this area and down to the core of the abscess where a small amount of purulent drainage was obtained. Forceps were used to break open loculations and then a small piece of iodoform packing was placed in the area and a dressing placed over that. EMERGENCY DEPARTMENT COURSE AND TREATMENT: She was treated with incision and drainage and oral Bactrim to take over the next week. I did give her a small Page 1 of 2 CHEYENNE BARR Emergency Room Report number of [place] for pain, as well as [id number] Tylenol or ibuprofen. Wound care instructions were given. DIAGNOSIS: Left axilla abscess with incision and drainage, probable Methicillin-resistant staphylococcus aureus. PLAN/DISPOSITION: I recommended wound recheck in a couple of days for possible packing removal. Dictated By: Gerardo Flor MD 11/04/17 16:31 JOB #: [id number] Transcribed By: am 11/04/17 18:30 Electronically signed by: ADRIA Flor M.D. 11/08/17 20:27 Page 2 of 2 CHEYENNE BARR Emergency Room Report CT BRAIN W/O CONTRAST Observed: 11/07/2017 Status: F Source: [facility] 11:26 PM [place] [address] Patient: CHEYENNE BARR Phone#: : 1970 Age: 46 Gender: F Pt. Type: ER Account: [id number] Location: 2 Ordering: KATHY MCNEIL Exam Date: 11/07/2017/23:17 Family Phys: NO DOCTOR Charge Code: [id number] Physician: Cataño Order #: [id number] DLP Dose#: PROCEDURE: CT BRAIN WITHOUT CONTRAST COMPARISON: [facility], CT, BRAIN W/O CON, 01/27/2015, 15:58. INDICATIONS: Headache TECHNIQUE: CT images were obtained without contrast material. All CT scans at this facility use dose modulation, iterative reconstruction, and/or weight based dosing when appropriate to reduce radiation dose to as low as reasonably achievable. IV CONTRAST: No IV contrast used,0ml TOTAL DOSE: 52.3 CTDIvol(mGy) FINDINGS: CEREBRUM: No edema, hemorrhage, mass, acute infarction, or inappropriate atrophy. CEREBELLUM: No edema, hemorrhage, mass, acute infarction, or inappropriate atrophy. BRAINSTEM: No edema, hemorrhage, mass, acute infarction, or inappropriate atrophy. CSF SPACES: Ventricles, cisterns, and sulci are appropriate for age. No hydrocephalus, subarachnoid hemorrhage, or mass. SKULL: No mass or other significant visible lesion. SINUSES: Limited views demonstrate no significant mucosal thickening or fluid. ORBITS: Limited views are unremarkable. OTHER: Negative. CONCLUSION: No acute disease. No significant change has occurred. Dictated by: Davina Wright MD on 11/09/2017 at 9:14 Approved by: Davina Wright MD on 11/09/2017 at 9:14 URINE Collected: 11/07/2017 Status: F Source: [facility] 10:30 PM [facility] REPOSITORY TYPE CODE TESTS RESULT OUT OF REFERENCE UNITS RANGE LAB NEGATIVE UR(LOINC) UR NEGATIVE LAB INTERNAL QC(LOINC) INTERNAL QC PASS LAB EXTERNAL QC DONE?(LOINC) EXTERNAL QC YES DONE? Performed By: #### [id number] #### [facility],[address] [place] [address] DRUG SCREEN URINE Collected: 11/07/2017 Status: F Source: [facility] MEDIC 10:30 PM [facility] REPOSITORY TYPE CODE TESTS RESULT OUT OF REFERENCE UNITS RANGE LAB DRUG SCREEN URINE MEDIC(LOINC) DRUG SCREEN URINE MEDIC Result Comment: DRUG SCREEN - URINE LAB PCP(LOINC) PCP NEG LAB COCAINE(LOINC) COCAINE NEG LAB OPIATES(LOINC) OPIATES NEG LAB AMPHETAMINES(LOINC ) AMPHETAMINES NEG LAB B-DIAZEPINES(LOINC ) B-DIAZEPINES NEG LAB TCA(LOINC) TCA NEG LAB METHADONE(LOINC) METHADONE NEG LAB BARBITURATES(LOINC ) BARBITURATES NEG LAB THC(LOINC) THC NEG Result Comment: PATIENTS RECEIVING PROTON PUMP INHIBITORS MAY DEMONSTRATE FALSE POSITIVE THC/CANNABINOID RESULTS. AN ALTERNATIVE CONFIRMATORY METHOD SHOULD BE CONSIDERED TO VERIFY POSITIVE RESULTS. Performed By: #### [id number] #### [place] [address] URINALYSIS Collected: 11/07/2017 Status: F Source: [facility] 10:30 PM [facility] REPOSITORY TYPE CODE TESTS RESULT OUT OF REFERENCE UNITS RANGE LAB URINALYSIS (LOINC) URINALYSIS Result Comment: URINALYSIS LAB Specimen Type(LOINC) Specimen Type Void LAB Color(LOINC) NORMAL: YELLOW Color p.yel LAB Clarity(LOINC) NORMAL: CLEAR Clarity clear LAB ph(LOINC) NORMAL: 5.0-8.0 ph 7 LAB Protein(LOINC) NORMAL: NEGATIVE Protein NEG LAB Glucose(LOINC) NORMAL: NORMAL Glucose NORM LAB Ketone(LOINC) NORMAL: NEGATIVE Ketone NEG LAB Bilirubin(LOINC) NORMAL: NEGATIVE Bilirubin NEG LAB Blood(LOINC) NORMAL: NEGATIVE Blood NEG LAB Urobilinog(LOINC) NORMAL: NORMAL Urobilinog NORM LAB Sp [place](LOINC) NORMAL: Low 1.010-1.030 Sp [place] 1.005 LAB Nitrite(LOINC) NORMAL: NEGATIVE Nitrite NEG LAB Leukocytes(LOINC) NORMAL: NEGATIVE Leukocytes Abnormal 25 LAB Microscopic(LOINC ) Microscopic SEE BELOW Result Comment: MICROSCOPIC LAB Wbc(LOINC) 0-5/hpf Wbc 6-10 LAB Rbc(LOINC) 0-3/hpf Rbc NONE LAB Casts(LOINC) Casts NONE LAB Crystals(LOINC) Crystals NONE LAB Amorphous(LOINC) Amorphous 3+ LAB Bacteria(LOINC) Bacteria 2+ LAB Epi Cells(LOINC) Epi Cells MANY LAB Mucous(LOINC) Mucous NONE LAB Yeast(LOINC) Yeast NONE Performed By: #### [id number] #### [place] [address] CBC Collected: 11/07/2017 Status: F Source: [facility] 9:24 PM [facility] REPOSITORY TYPE CODE TESTS RESULT OUT OF RANGE REFERENCE UNITS LAB CBC(LOINC) CBC Result Comment: CBC-COMPLETE BLOOD COUNT LAB WBC(LOINC) 4.5 - 10.8 x 10EE3/UL WBC 9.5 LAB RBC(LOINC) 4.10 - x 10EE6/UL 5.30 RBC 4.20 LAB HEMOGLOBIN(LOINC 12.0 - g/dl ) 16.0 HEMOGLOBIN 12.3 LAB HEMATOCRIT(LOINC 34.0 - % ) 46.0 HEMATOCRIT 36.5 LAB MCV(LOINC) 80 - 99 fl MCV 87 LAB MCH(LOINC) 27 - 33 pg MCH 29 LAB MCHC(LOINC) 32 - 36 X10 3 MCHC 34 LAB RDW/CV(LOINC) 12.0 - % 15.6 RDW/CV High 17.5 LAB PLATELET(LOINC) 150 - 450 x10EE3/UL PLATELET 365 LAB MPV(LOINC) 6.6 - 10.5 fl MPV 8.4 Result Comment: AUTOMATED DIFFERENTIAL LAB NEUT %(LOINC) 46.0 - 76.0 % NEUT % 47.1 LAB LYMPH %(LOINC) 20.0 - 45.0 % LYMPH % 41.8 LAB MONOS %(LOINC) 0.0 - 10.0 % MONOS % 7.8 LAB EO %(LOINC) 0.0 - 7.0 % EO % 2.2 LAB BASO %(LOINC) 0.0 - 2.0 % BASO % 1.1 LAB Lymph #(LOINC) 0.80 - 2.80 x10EE3/U L Lymph # High 4.00 LAB Neut #(LOINC) 1.50 - 7.10 x10EE3/U L Neut # 4.50 LAB [place] #(LOINC) 0.20 - 1.00 x10EE3/U L [place] # 0.70 LAB EO #(LOINC) 0.00 - 0.50 x10EE3/U L EO # 0.20 LAB Baso #(LOINC) 0.00 - 0.10 x10EE3/U L Baso # 0.10 LAB MANUAL DIFF(LOINC) MANUAL DIFF N/A LAB MORPHOLOGY(LOINC ) MORPHOLOGY N/A Result Comment: {CD] Performed By: #### [id number] #### [facility],[address] [place], [place] [id number] ALCOHOL-BLOOD MEDICAL Collected: 11/07/2017 Status: F Source: [facility] 9:24 PM [facility] REPOSITORY TYPE CODE TESTS RESULT OUT OF REFERENCE UNITS RANGE LAB ALCOHOL(FRANK 0 - 50 mg/dl NC) ALCOHOL <8 Performed By: #### [id number] #### [place] [id number] CMP WITH EGFR Collected: 11/07/2017 Status: F Source: [facility] 9:24 PM [facility] REPOSITORY TYPE CODE TESTS RESULT OUT OF RANGE REFERENCE UNITS LAB CMP with eGFR(LOINC) CMP with eGFR Result Comment: COMPREHENSIVE METABOLIC PANEL LAB SODIUM(LOINC) 136 - 145 mmol/l SODIUM Low 134 LAB POTASSIUM(LOINC) 3.5 - 5.1 mmol/L POTASSIUM 4.0 LAB CHLORIDE(LOINC) 98 - 107 mmol/L CHLORIDE 101 LAB CO2(LOINC) 21.0 - mmol/L 31.0 CO2 25.2 LAB GLUCOSE(LOINC) 74 - 106 mg/dl GLUCOSE 84 LAB BUN(LOINC) 6 - 20 mg/dl BUN 10 LAB CREATININE(LOINC) 0.6 - 1.2 mg/dl CREATININE 0.7 LAB AST/SGOT(LOINC) 13 - 39 U/L AST/SGOT Low 10 LAB ALK PHOS(LOINC) 38 - 126 U/L ALK PHOS 55 LAB CALCIUM(LOINC) 8.6 - mg/dl 10.2 CALCIUM 9.7 LAB TOTAL PROTEIN(LOINC) 6.4 - 8.3 g/dl TOTAL PROTEIN 7.0 LAB ALBUMIN(LOINC) 3.4 - 4.8 g/dL ALBUMIN 4.3 LAB GLOBULIN(LOINC) 1.5 - 3.8 G/DL GLOBULIN 2.7 LAB A/G RATIO(LOINC) 0.9 - 1.6 A/G RATIO 1.6 LAB TOTAL BILI(LOINC) 0.0 - 1.5 mg/dl TOTAL BILI 0.4 LAB B/C RATIO(LOINC) 0 - 30 ratio B/C RATIO 14 LAB ALT/SGPT(LOINC) 8 - 35 U/L ALT/SGPT Low 6 LAB ANION GAP(LOINC) 10 - 20 mmol/L ANION GAP 12 LAB AGE(LOINC) years AGE 46 LAB eGFR(LOINC) 60 - 999 ML/MINUTE eGFR >60 LAB eGFR(AA)(LOINC) 60 - 999 ML/MINUTE eGFR(AA) >60 Result Comment: ACCORDING TO THE NATIONAL KIDNEY DISEASE EDUCATION PROGRAM(NKDE), A NORMAL eGFR IS A VALUE GREATER THAN OR EQUAL TO 60 ML/MIN/1.73 SQ METERS. CHRONIC KIDNEY DISEASE: <60mL/MIN/1.73 SQ METERS KIDNEY FAILURE: <15mL/MIN/1.73 SQ METERS THIS TEST SHOULD ONLY BE USED FOR PATIENTS 18 YEARS OF AGE AND OLDER. Performed By: #### [id number] #### [place] [address] ACETAMINOPHEN Collected: 11/07/2017 Status: F Source: [facility] 9:24 PM [facility] TYPE CODE TESTS RESULT OUT OF REFERENCE UNITS RANGE LAB ACETAMINOP 10.0 - 20.0 ug/mL HEN(LOINC) ACETAMINOPHEN <10.0 Performed By: #### [id number] #### [place] [id number] SALICYLATE Collected: 11/07/2017 Status: F Source: [facility] 9:24 PM [facility] REPOSITORY TYPE CODE TESTS RESULT OUT OF REFERENCE UNITS RANGE LAB SALICYLATE 0.0 - 30.0 mg/dl (LOINC) SALICYLATE <4.0 Result Comment: *PATIENTS TREATED WITH SULFASALAZINE MAY GENERATE A FALSE HIGH RESULT FOR SALICYLATE. *PATIENTS TREATED WITH SULFAPYRIDINE MAY GENERATE A FALSE LOW RESULT FOR SALICYLATE. Performed By: #### [id number] #### [place] [id number] EMERGENCY REPORT Observed: 09/24/2017 Status: F Source: [facility] 6:44 AM [facility] REPORT NAME ACCOUNT SEX AGE ADMIT DISCHARGE PT MED. RECORD# NUMBER DATE DATE TYPE BARR, [id number] F 46 09/15/17 09/15/17 3 [place] [id number] ROOM: ER DATE OF : 1970 DICTATING PHYSICIAN: Asif Le CHIEF COMPLAINT: Patient came in, is complaining of pain in her left thumb. HISTORY OF PRESENT ILLNESS: She says she got bit by a dog on Thursday. She also has pain in her legs but she has a history of chronic pain and she presents to the emergency department. She says the pain is an 8 out of 10. It is a constant, sharp pain, throbbing. Nothing makes it better or worse. PAST MEDICAL HISTORY: She has a history of back pain. She has a history of depression and anxiety. She has ulcers, migraines, mitral valve prolapse, carpal tunnel. She has had appendix and back surgery. SOCIAL HISTORY: She does smoke, occasionally drinks alcohol. REVIEW OF SYSTEMS: Ten systems were reviewed and negative except as mentioned above. She said she had green pus where her dog bit her on her left thumb. I do not see any obvious signs of infection at this time. PHYSICAL EXAMINATION: Patient is afebrile, pulse 90, respirations 16, blood pressure 108/76, pulse ox 96% on room air. Patient is an awake, alert and oriented female in no acute distress. Head is normocephalic, atraumatic. Eyes: Pupils are equal, round, and reactive to light. Extraocular muscles are intact. Nares are patent. Throat has adequate moisture. Uvula is midline. Neck is supple without petechiae or rash. Heart without murmur. S1 equal to S2. No S3 or S4 appreciated. Lungs are clear to auscultation bilaterally. No rales, rhonchi, or retractions. Abdomen is soft, nontender, nondistended. Skin is warm and dry. She does have some bruising on both of her arms. She says she was moving things. It almost looks like she could be getting grabbed. We asked her if she was being abused and wanted us to call somebody and she denied this adamantly. She also had some bruising on her right leg. Her thumb has a healing bite liz. It does not appear to be infected at this time. I will not treat with antibiotics. EMERGENCY DEPARTMENT COURSE AND TREATMENT: I did give her a shot of Toradol. She can take Tylenol for pain since she has ulcers. She will be discharged. DIAGNOSES: 1. Dog bite to the left thumb. I do not believe it is infected at this time. Page 1 of 2 [facility]ARR Emergency Room Report 2. Back pain. 3. Arm bruising bilaterally. Dictated By: Asif Le DO 09/15/17 19:46 JOB #: [id number] Transcribed By: sj 09/15/17 20:40 Electronically signed by: ADRIA Le D.O. 09/24/17 06:44 Page 2 of 2 [facility] BARR Emergency Room Report EMERGENCY DEPARTMENT Observed: 08/13/2017 Status: F Source: [place] SUMMARY 4:26 PM [facility] REPOSITORY [facility] Medical Records Department [address] [place] [address] Emergency Department Summary 08/13/17 1553 MR#: [id number] Acct: [id number] Name: CHEYENNE BARR Rep #: [id number] : 1970 46 From: En Santana MD PCP: Kyung Herzog DO Status: REG ER - ER Visit Summary Date of Service: 08/13/17 Chief Complaint: Left knee injury History of Present Illness: The patient is a 46 F presents to the emergency department with injury to her left knee. Patient states she was getting out of the cab and lost her balance. She fell and landed on her left knee. She was concerned because she has had tibial plateau fracture of the same knee that was treated conservatively without surgery. She states she has been able to bear weight but does admit to increasing pain. She did not hit her head. She denies loss of consciousness. She denies any other injury. She has not taken anything for the pain. Physical Examination: Vital signs reviewed General: Well-nourished, well-developed Head: Normocephalic, atraumatic Eyes: Pupils equal and reactive, extraocular muscles intact Neck, supple, no lymphadenopathy Heart: Regular rate and rhythm Respiratory: No distress, clear bilaterally Abdomen: Soft, nontender, nondistended, no peritoneal signs Back: Nontender Extremities: Superficial abrasion of the left knee. Small effusion. Extension preserved. Skin: Normal color no rash Neuro: Alert and oriented, no focal or lateralizing deficits Test Results: [] Emergency Department Course and Treatment: Patient was given one [place] for pain control. I did obtain plain films of the knee. There is evidence of old tibial plateau fracture, but no new fracture. There is no effusion. Patient's extension is preserved. She is placed in an Thomas wrap. She is already on analgesics at home. She will continue these and follow-up with orthopedics. Treatment Plan: [] Disposition: Charge Impression: Left Knee contusion This note was generated with [employer] dictation software. It may contain incorrect words, spelling, and punctuation that were not noted in review of the chart prior to signing ED Disposition - Plan for ED Patient: Chief Complaint: Lower Extremity Injury Instructions: ED Sprain Knee Referrals: Kyung Herzog DO [Primary Care Provider] - What to do if you have Problems For any increased pain, shortness of breath, bleeding, nausea or vomiting, chest pain, or any unexpected problems, contact your Primary Care Provider. Call [facility] ([phone]) or report to the closest Emergency Room. Call 911 if necessary. 08/13/17 1626 <Electronically signed by En Santana MD> Date En Santana MD Cosign Signature (If Indicated): Date CC: Kyung Herzog DO KNEE 4 OR MORE Observed: 08/13/2017 Status: F Source: [place] VIEWS 3:48 PM [facility] RE[facility]ITORY [facility] Imaging Services [address] [place] [id number] Knee 4 or More Views MR#: [id number] Acct: [id number] Name: CHEYENNE BARR Rep #: [id number] : 1970 F 46 From: Edwin Martin MD PCP: Kyung Herzog DO Status: REG ER Study: Knee 4 or More Views Date of Exam: 08/13/17 Exam# [id number] Ordering Dr: En Santana MD STUDY: X-RAY - LEFT KNEE REASON FOR EXAM: Left knee pain after fall, history of knee fracture. TECHNIQUE: 4 view(s) of the knee. COMPARISON: Radiographs 04/28/2017 and 02/02/2017. FINDINGS: Normal visualized distal femur. There is chronic fracture deformity of the proximal tibia and head of the fibula. Normal medial femorotibial compartment. Normal lateral femorotibial compartment. Normal patellofemoral articulation. The soft tissue structures are unremarkable. RAD/Knee 4 or More Views IMPRESSION: Chronic fracture deformity of the proximal tibia and head of the fibula without demonstrated acute fracture. Electronically Signed: Edwin Martin MD at 16:19 EDT Tel , Service support , CC: Kyung Herzog DO; En Santana MD Track Layer Head: Signed EMERGENCY REPORT Observed: 07/24/2017 Status: F [facility] REPORT NAME ACCOUNT SEX AGE ADMIT DISCHARGE PT MED. RECORD# NUMBER DATE DATE TYPE BARR, [id number] F 46 07/19/17 07/20/17 3 [place] [id number] ROOM: ER DATE OF : 1970 DICTATING PHYSICIAN: Kathy Mcneil ADDENDUM: DIAGNOSTIC DATA: CTA chest was done because the D-dimer came back elevated at 1100. CTA was negative. No evidence of acute PE. No thoracic aneurysm. No lymphadenopathy. No focal infiltrate. Positive emphysema. No pleural effusion. No pneumothorax. IVC filter noted. EKG at 2114 hours showed normal sinus rhythm at rate of [address] segment changes were noted. Balm was 60 degrees. BNP 20, normal. Troponin was normal at 0.01. Sodium 136, potassium 4.1, chloride 100, CO2 29.8, glucose 88, BUN 24, creatinine 0.7. Liver functions all came back within normal limits. Anion gap 10. D-dimer was 1115 (that was why the CAT scan was done). White count was normal at 9.5, hemoglobin 12.8, hematocrit 38.9, platelet 281,000. EMERGENCY DEPARTMENT COURSE AND TREATMENT: I discussed the findings with the patient. I looked at the chest x-ray earlier and there was no acute infiltrate or pneumothorax noted on the chest x-ray as well. Since the patient is palpably tender over the right anterior chest wall I will place her on Naprosyn 500 mg one p.o. b.i.d. with food, dispense #20 with no refill. She was given a dose here of Toradol 30 mg IV prior to discharge and she is feeling better. DIAGNOSIS: Costochondritis. PLAN/DISPOSITION: The patient was discharged in a clinically stable condition. She is to follow up with her primary care physician in 3-5 days for reevaluation and avoid any heavy lifting or other exertional activities. My records indicate that she does not have a family physician, so we will send her for followup to [facility] for followup in 3-5 days - phone . The patient was discharged in clinically stable condition. Dictated By: Kathy Mcneil DO JOB #: [id number] Page 1 of 2 [place] BARR Emergency Room Report Transcribed by: saurabh TD: 07/20/17 11:08 Electronically signed by: E-Sign: Dr. Kathy Mcneil D.O. 07/24/17 05:44 Page 2 of 2 [place] BARR Emergency Room Report EMERGENCY REPORT Observed: 07/24/2017 Status: F Source: [facility] 5:44 AM [facility] REPORT NAME ACCOUNT SEX AGE ADMIT DISCHARGE PT MED. RECORD# NUMBER DATE DATE TYPE BARR, [id number] F 46 07/19/17 07/20/17 3 [place] [id number] ROOM: ER DATE OF : 1970 DICTATING PHYSICIAN: Kathy Mcneil HISTORY OF PRESENT ILLNESS: This is a 46-year-old white female complaining of right-sided chest pain radiating into her right breast and right shoulder that started around 8 p.m. tonight. She states the pain started while sleeping, but she was not doing anything exertional. The pain is worse with deep inspiration. She rates the pain severity as an 8 on a severity scale of 1-10. She describes it as sharp in nature. She does admit to a very minimal cough, stating she has been coughing very little. She denies any nausea, vomiting or diaphoresis. She does have a history of mitral valve prolapse but states this pain is different from her mitral valve prolapse pain. She did have blood clots in the past, mainly in her left leg and both lungs, about 8 to 9 years ago. Her last stress test was about 6 years ago. PAST MEDICAL HISTORY: Hypertension, mitral valve prolapse, bipolar disorder, depression, anxiety and seizure disorder. PAST SURGICAL HISTORY: She denies any past surgeries. MEDICATIONS: Current medications include Coreg, Depakote, Seroquel, Klonopin, amantadine, gabapentin and Effexor. She denies being on any blood thinners. ALLERGIES: She is allergic to Ambien, tetracycline and baclofen. SOCIAL HISTORY: She is a smoker of 1 pack per day. She does admit to occasional alcohol use. She does live at home with her spouse. REVIEW OF SYSTEMS: The patient does admit to chest pain. She denies any shortness of breath. She does admit to occasional cough. She denies any sputum, wheezing, abdominal pain, nausea, vomiting, diarrhea, constipation, melena, hematochezia, headache, numbness, unsteady gait, weakness, or neck or back pain. She does complain of some right shoulder pain. She denies any skin rash or swelling, hives, hay fever or swollen glands. Further review of systems is negative. PHYSICAL EXAMINATION: Vital signs: Blood pressure 127/82, pulse 103, respirations 14, pulse oximetry 100% on room air, and weight 154 pounds. On physical examination, the patient is alert and oriented x3. She presently appears in some mild distress secondary to chest pain, but she is pleasant and cooperative. HEENT: Head appears atraumatic. Pupils are equal and reactive to light. Red reflexes are intact bilaterally. Page 1 of 2 [facility] [place] Emergency Room Report Extraocular muscles are intact. No conjunctival injection. No scleral icterus or lid edema. Ears: TMs are intact bilaterally. No erythema is noted. Nose exhibits no rhinorrhea or epistaxis. Mouth: Mucous membranes are moist. No pharyngeal erythema. Uvula is midline and elevates. Neck is supple. Trachea is midline. No JVD or lymphadenopathy. No posterior cervical tenderness. No nuchal rigidity. Lungs are clear to auscultation in all lung abreu. No adventitious sounds are noted. No accessory muscle use. CV: Heart rate and rhythm are regular. No murmur noted. I do note palpable tenderness over the right anterior chest wall with palpation. There is no associated ecchymosis or erythema. No crepitus or subcutaneous emphysema. As noted, lungs are clear to auscultation in all lung abreu. The patient does have increased chest pain with forward bending like when I ask her to sit up, and she also has pain with breathing deep and is noted with palpating the right anterior chest wall. Abdomen is soft and nontender with normoactive bowel sounds x4 quadrants. No guarding or rigidity. No rebound. No palpable abdominal masses. No hepatosplenomegaly. Back exhibits no midline or paraspinal region tenderness. No increased paraspinal muscle rigidity. Negative Mumtaz's sign. Extremities: No edema or cyanosis. Peripheral pulses are intact. No motor or sensory deficits are noted. Hand poly area supervisor are strong and symmetric. Neurologic examination shows the patient to be alert and oriented x4. No motor or sensory deficits are noted. Normal speech. Skin is warm and dry. No diaphoresis. No rash. The patient is pleasant and cooperative with somewhat of a flat affect. DIAGNOSTIC DATA: EKG at 2114 hours shows a normal sinus rhythm at a rate of [address]-segment changes are noted. Balm is approximately 60 degrees. EMERGENCY DEPARTMENT COURSE AND TREATMENT: Presently, we will obtain a cardiac work-up and then reevaluate. Dictated By: Kathy Mcneil DO JOB #: [id number] Transcribed by: art TD: 07/20/17 07:15 Electronically signed by: E-Sign: Dr. Kathy Mcneil D.O. 07/24/17 05:44 Page 2 of 2 [facility] Emergency Room Report CT CHEST (PE PROTOCOL) Observed: 07/19/2017 Status: F Source: [facility] 11:[address] [address] Patient: CHEYENNE BARR Phone#: : 1970 Age: 46 Gender: F Pt. Type: ER Account: [id number] Location: 052 Ordering: KATHY MCNEIL Exam Date: 07/19/2017/23:24 Family Phys: NO DOCTOR Charge Code: [id number] Physician: Cataño Order #: [id number] DLP Dose#: PROCEDURE: CT CHEST WITH CONTRAST FOR PE COMPARISON: [facility], XR, CHEST 1 VIEW, 07/19/2017, 22:05. [facility], CT, CHEST PE W CON, 03/24/2017, 23:30. INDICATIONS: Elevated D-Dimer TECHNIQUE: After obtaining the patient's consent, CT images were obtained with non-ionic intravenous contrast material. Multi-planar images were created to optimize visualization of vascular anatomy with MPR/MIPS and 3D imaging. All CT scans at this facility use dose modulation, iterative reconstruction, and/or weight based dosing when appropriate to reduce radiation dose to as low as reasonably achievable. IV CONTRAST: Omnipaque 350,65ml TOTAL DOSE: 6.2 CTDIvol(mGy) FINDINGS: VASCULATURE: Normal. No visible pulmonary arterial thrombus or attenuation. AORTA: No aortic aneurysm. LUNGS: There are emphysematous changes in the upper lobes. There is atelectasis in the lower lobes. MARIA R: Normal. No mass or adenopathy. MEDIASTINUM: Normal. No mass or adenopathy. CARDIAC: Normal. No enlargement, pericardial thickening, or significant calcification. PLEURA: Normal. No mass or effusion. CHEST WALL: Normal. No mass or axillary adenopathy. LIMITED ABDOMEN: The tip of an IVC filter is visualized in the intrahepatic IVC. BONES: Normal. No bony lesion or fracture. OTHER: Negative. Continued Report - Page 2 of 2 Patient: CHEYENNE BARR Phone#: : 1970 Age: 46 Gender: F Pt. Type: ER Account: [id number] Location: 052 Ordering: KATHY MCNEIL Exam Date: 07/19/2017/23:24 Family Phys: NO DOCTOR Charge Code: [id number] Physician: Cataño Order #: [id number] DLP Dose#: CONCLUSION: 1. No pulmonary embolism. 2. Atelectasis. 3. Emphysematous changes. Dictated by: Araseli Galvan MD on 07/20/2017 at 17:31 Approved by: Araseli Galvan MD on 07/20/2017 at 17:31 CBC Collected: 07/19/2017 Status: F Source: [facility] 10:30 PM [facility] REPOSITORY TYPE CODE TESTS RESULT OUT OF RANGE REFERENCE UNITS LAB CBC(LOINC) CBC Result Comment: CBC-COMPLETE BLOOD COUNT LAB WBC(LOINC) 4.5 - 10.8 x 10EE3/UL WBC 9.5 LAB RBC(LOINC) 4.10 - x 10EE6/UL 5.30 RBC 4.42 LAB HEMOGLOBIN(LOINC 12.0 - g/dl ) 16.0 HEMOGLOBIN 12.8 LAB HEMATOCRIT(LOINC 34.0 - % ) 46.0 HEMATOCRIT 38.9 LAB MCV(LOINC) 80 - 99 fl MCV 88 LAB MCH(LOINC) 27 - 33 pg MCH 29 LAB MCHC(LOINC) 32 - 36 X10 3 MCHC 33 LAB RDW/CV(LOINC) 12.0 - % 15.6 RDW/CV High 18.6 LAB PLATELET(LOINC) 150 - 450 x10EE3/UL PLATELET 281 LAB MPV(LOINC) 6.6 - 10.5 fl MPV 9.2 Result Comment: AUTOMATED DIFFERENTIAL LAB NEUT %(LOINC) 46.0 - 76.0 % Low NEUT % 38.1 LAB LYMPH %(LOINC) 20.0 - 45.0 % LYMPH % High 48.7 LAB MONOS %(LOINC) 0.0 - 10.0 % MONOS % 9.5 LAB EO %(LOINC) 0.0 - 7.0 % EO % 2.2 LAB BASO %(LOINC) 0.0 - 2.0 % BASO % 1.5 LAB Lymph #(LOINC) 0.80 - 2.80 x10EE3/U L Lymph # High 4.60 LAB Neut #(LOINC) 1.50 - 7.10 x10EE3/U L Neut # 3.60 LAB [place] #(LOINC) 0.20 - 1.00 x10EE3/U L [place] # 0.90 LAB EO #(LOINC) 0.00 - 0.50 x10EE3/U L EO # 0.20 LAB Baso #(LOINC) 0.00 - 0.10 x10EE3/U L Baso # 0.10 LAB MANUAL DIFF(LOINC) MANUAL DIFF N/A LAB MORPHOLOGY(LOINC ) MORPHOLOGY N/A Result Comment: {CD] Performed By: #### [id number] #### [place] [address] D-DIMER, QUANTITATIVE Collected: 07/19/2017 Status: F Source: [facility] 10:30 [facility] REPOSITORY TYPE CODE TESTS RESULT OUT OF REFERENCE UNITS RANGE LAB D-DIMER, QUANTITATI VE(LOINC) D-DIMER, QUANTITATIVE Result Comment: QUANT D-DIMER LAB D-DIMER 0 - 230 ng/ml QUANT(LOINC) High D-DIMER QUANT 1115 Performed By: #### [id number] #### [place] [id number] TROPONIN Collected: 07/19/2017 Status: F Source: [facility] 10:30 [facility] REPOSITORY TYPE CODE TESTS RESULT OUT OF REFERENCE UNITS RANGE LAB TROPONIN 0.00 - 0.05 ng/ml I(LOINC) TROPONIN I 0.01 Result Comment: Elevated troponin (above the 99th percentile) usually indicates myocardial ischemia. Results must be interpreted within the clinical setting. 1.Non-ischemic pathology can also cause elevated troponin levels (e.g., acute pulmonary embolism, myocarditis, pericarditis, heart failure, intracranial injury, rhabdomyolisis, sepsis, shock and renal insufficiency). 2.Approximately 1% of healthy adults have elevated troponin levels. 3.Analytical false positive results rarely occur(due to multiple interferences such as heterophile antibodies). Performed By: #### [id number] #### [place] [id number] CMP WITH EGFR Collected: 07/19/2017 Status: F Source: [facility] 10:30 PM [facility] REPOSITORY TYPE CODE TESTS RESULT OUT OF RANGE REFERENCE UNITS LAB CMP with eGFR(LOINC) CMP with eGFR Result Comment: COMPREHENSIVE METABOLIC PANEL LAB SODIUM(LOINC) 136 - 145 mmol/l SODIUM 136 LAB POTASSIUM(LOINC) 3.5 - 5.1 mmol/L POTASSIUM 4.1 LAB CHLORIDE(LOINC) 98 - 107 mmol/L CHLORIDE 100 LAB CO2(LOINC) 21.0 - mmol/L 31.0 CO2 29.8 LAB GLUCOSE(LOINC) 74 - 106 mg/dl GLUCOSE 88 LAB BUN(LOINC) 6 - 20 mg/dl BUN High 24 LAB CREATININE(LOINC) 0.6 - 1.2 mg/dl CREATININE 0.7 LAB AST/SGOT(LOINC) 13 - 39 U/L AST/SGOT 17 LAB ALK PHOS(LOINC) 38 - 126 U/L ALK PHOS 87 LAB CALCIUM(LOINC) 8.6 - mg/dl 10.2 CALCIUM 9.6 LAB TOTAL 6.4 - 8.3 g/dl PROTEIN(LOINC) TOTAL PROTEIN 6.9 LAB ALBUMIN(LOINC) 3.4 - 4.8 g/dL ALBUMIN 4.3 LAB GLOBULIN(LOINC) 1.5 - 3.8 G/DL GLOBULIN 2.6 LAB A/G RATIO(LOINC) 0.9 - 1.6 A/G High RATIO 1.7 LAB TOTAL BILI(LOINC) 0.0 - 1.5 mg/dl TOTAL BILI 0.1 LAB B/C RATIO(LOINC) 0 - 30 ratio B/C High RATIO 34 LAB ALT/SGPT(LOINC) 8 - 35 U/L ALT/SGPT 10 LAB ANION GAP(LOINC) 10 - 20 mmol/L ANION GAP 10 LAB AGE(LOINC) years AGE 46 LAB eGFR(LOINC) 60 - 999 ML/MINUTE eGFR >60 LAB eGFR(AA)(LOINC) 60 - 999 ML/MINUTE eGFR(AA) >60 Result Comment: ACCORDING TO THE NATIONAL KIDNEY DISEASE EDUCATION PROGRAM(NKDE), A NORMAL eGFR IS A VALUE GREATER THAN OR EQUAL TO 60 ML/MIN/1.73 SQ METERS. CHRONIC KIDNEY DISEASE: <60mL/MIN/1.73 SQ METERS KIDNEY FAILURE: <15mL/MIN/1.73 SQ METERS THIS TEST SHOULD ONLY BE USED FOR PATIENTS 18 YEARS OF AGE AND OLDER. Performed By: #### [id number] #### [facility],[address] [place], [place] [id number] BNP (B-TYPE NATRIURETIC Collected: 07/19/2017 Status: F Source: [facility]) 10:30 PM [facility] REPOSITORY TYPE CODE TESTS RESULT OUT OF RANGE REFERENCE UNITS LAB BNP(LOINC) 1 - 100 pg/ml BNP 20 Performed By: #### [id number] #### [facility],[address] [place] [id number] CHEST 1 VIEW Observed: 07/19/2017 Status: F Source: [facility] 10:[address] [address] Patient: CHEYENNE BARR Phone#: : 1970 Age: 46 Gender: F Pt. Type: ER Account: [id number] Location: [facility] Ordering: KATHY MCNEIL Exam Date: 07/19/2017/22:05 Family Phys: NO DOCTOR Charge Code: [id number] Physician: Cataño Order #: [id number] DLP Dose#: PROCEDURE: X-RAY CHEST 1 VIEW COMPARISON: [facility], XR, CHEST PA/LAT, 03/24/2017, 21:44. INDICATIONS: Righr breast/chest pain FINDINGS: LUNGS: Normal. No significant pulmonary parenchymal abnormalities. VASCULATURE: Normal. Unremarkable pulmonary vasculature. CARDIAC: Normal. No cardiac silhouette abnormality or cardiomegaly. MEDIASTINUM: Normal. No visible mass or adenopathy. PLEURA: Normal. No effusion or pleural thickening. BONES: Normal. No fracture or visible bony lesion. OTHER: Negative. CONCLUSION: No acute disease. Dictated by: Araseli Galvan MD on 07/20/2017 at 7:57 Approved by: Araseli Galvan MD on 07/20/2017 at 7:57 EMERGENCY REPORT Observed: 07/13/2017 Status: F Source: [facility] 4:57 AM [facility] REPORT NAME ACCOUNT SEX AGE ADMIT DISCHARGE PT MED. RECORD# NUMBER DATE DATE TYPE MOMO [id number] F 46 07/06/17 07/07/17 3 [place] [id number] ROOM: ER DATE OF : 1970 DICTATING PHYSICIAN: Asif Le HISTORY OF PRESENT ILLNESS: The patient came in. She has been having suicidal thoughts. She was here yesterday for similar symptoms. She was cutting her wrist, but she was heavily intoxicated. Crisis came out and she was not homicidal or suicidal when she left. However, at this time she is homicidal and suicidal now. She may cut her wrist. She has been admitted to the hospital for depression in the past, a couple of years ago, for bipolar disorder. She has anxiety. PAST MEDICAL HISTORY: She has a history of hypertension, asthma, mitral valve prolapse, appendectomy, carpal tunnel surgery, ulcer rupture. SOCIAL HISTORY: She does smoke. She occasionally drinks alcohol. REVIEW OF SYSTEMS: Ten systems reviewed and negative except as mentioned above. PHYSICAL EXAMINATION: She is an awake, alert and oriented female in no acute distress. She is afebrile. Pulse 90, respirations 18, blood pressure 134/92, head is normocephalic, atraumatic. Eyes: Pupils are equal, round, and reactive to light. Extraocular muscles are intact. Nares are patent. Throat has good oral moisture. Uvula is midline. Neck is supple without petechiae or rash. Heart rate is regular without murmur. S1 equals S2, and no S3 or S4 appreciated. Lungs are clear to auscultation bilaterally. No rales, rhonchi or retractions. Abdomen is soft and nontender, nondistended. Skin is warm and dry. DIAGNOSTIC DATA: EKG shows normal sinus rhythm. Alcohol is negative. Chemistries are unremarkable. test is negative. White count is 16,000. H&H 13 and 40. Platelets 237,000. DIAGNOSIS: Depression. PLAN/DISPOSITION: I discussed this with Karen [facility] who is going to evaluate her. Dictated By: Asif Le DO TD: 07/07/17 13:28 Page 1 of 2 [facility] Emergency Room Report JOB #: [id number] Transcribed by: saurabh Electronically signed by: ADRIA Le D.O. 07/13/17 04:57 Page 2 of 2 [facility] BARR Emergency Room Report EMERGENCY REPORT Observed: 07/12/2017 Status: F Source: [facility] 1:36 AM [facility] REPORT NAME ACCOUNT SEX AGE ADMIT DISCHARGE PT MED. RECORD# NUMBER DATE DATE TYPE BARR, [id number] F 46 07/06/17 07/07/17 3 [place] [id number] ROOM: ER DATE OF : 1970 DICTATING PHYSICIAN: Kathy Mcneil ADDENDUM: DIAGNOSTIC DATA: Laboratory work showed a white count of 16,000 with a hemoglobin of 13.1, hematocrit 40.1, platelet count is 237,000. Sodium 135, potassium 3.8, chloride 104, Co2 21.8, BUN 10, creatinine 0.6. Liver functions all came back within normal limits. Anion gap is 13. Urinalysis did show 25 leukocyte esterase with 1 to 5 white cells and 1+ bacteria with many epithelials. At this point, it appears to be a contaminated specimen. Urine was negative. Blood alcohol was less than 8. EMERGENCY DEPARTMENT COURSE AND TREATMENT: At 9:05 p.m., I just got word that the patient has been accepted to [facility] for admission there. Crisis had been out here earlier with Dr. Le and evaluated the patient and pink slipped her, and now we do have confirmation of admission to [place] which I do feel is appropriate. DIAGNOSIS: Suicidal ideation. PLAN/DISPOSITION: Presently, we are waiting for a bed assignment, and the patient will be transferred to [place]. Dictated By: Kathy Mcneil DO TD: 07/07/17 19:14 JOB #: [id number] Transcribed by: gildardo Electronically signed by: E-Sign: Dr. Kathy Mcneil D.O. 07/12/17 01:36 Page 1 of 1 [facility] Emergency Room Report HEMOGLOBIN A1C Collected: 07/07/2017 Status: F Source: [facility] 6:42 AM SYSTEM REPOSITORY TYPE CODE TESTS RESULT OUT OF REFERENCE UNITS RANGE LAB A1C2 4.0-5.7 % Hemoglobin A1C 5.4 Result Comment: --HgbA1C levels may not be accurate in patients who have renal disease, received recent blood transfusions, are anemic, or who have dyshemoglobinemia. LAB EAG2 mg/dL Estimated Avg Glucose 108 Performed By: #### HA1C2, LIPD2 #### The performing lab is in the report. LIPID PANEL Collected: 07/07/2017 Status: F Source: [place] 6:42 AM SYSTEM REPOSITORY TYPE CODE TESTS RESULT OUT OF REFERENCE UNITS RANGE LAB 3CHOL < 200 mg/dL Cholesterol 122 LAB 3TRIG <150 mg/dL Triglyceride 99 LAB HDLC 40-60 mg/dL HDL Cholesterol 48 LAB LDL4 <100 mg/dL Low Density Lipoprotein 54 LAB [facility] Chol/HDL 3 Result Comment: Ref Range: < 3 Low Risk for CHD 3-6 Mod Risk for CHD > 6 High Risk for CHD Performed By: #### HA1C2, LIPD2 #### The performing lab is in the report. EMERGENCY REPORT Observed: 07/07/2017 Status: F [facility] NAME ACCOUNT SEX AGE ADMIT DISCHARGE PT MED. RECORD# NUMBER DATE DATE TYPE MOMO, [id number] F 46 07/05/17 07/06/17 3 [facility] [id number] ROOM: ER DATE OF : 1970 DICTATING PHYSICIAN: Kathy Mcneil ADDENDUM DIAGNOSTIC DATA: White count came back at 6.8, hemoglobin 12.8, hematocrit 38.1, and platelet count 304,000. Sodium is 141, potassium 3.3, chloride 110, CO2 of 23.4, BUN 3, and creatinine 0.5. Glucose was 111. Liver functions came back within normal limits. Anion gap was 11. Tylenol level was less than 10. Salicylate level was less than 4. Her alcohol level came back at 228. EMERGENCY DEPARTMENT COURSE AND TREATMENT: We did keep her here for a good part of the night. Crisis came out and talked to her as well, and she has denied any suicidal ideation to Crisis. She has really not admitted to me any suicidal thoughts as well. She just basically told me that she had cut her left wrist because she is afraid of her son. She clinically does not look intoxicated. She has been up walking about the department. Her gait is steady, and she does make eye contact. She has been telling the feed in worker that she wants to go home, and she does have a family member that will come and get her, so Crisis was comfortable with setting her up with outpatient counseling. I went in and talked to the patient, and again she denies to me that she is suicidal at this point. She states she feels it was stupid, and she just did this because she was afraid of her son. Where she is going tonight her son is not there, so at this point we are going to let her go home, as she wishes, as long as a family member comes to get her and watches her tonight. It has been probably a good three hours since we arti that blood alcohol level, so I am sure it is lower at this point. As good as the patient looks clinically, she does not appear intoxicated. I am okay with her going home and following up with crisis on an outpatient basis, especially since she denies suicidal ideation here. The patient did refuse her tetanus. Her ride is here, so we are going to let her go home. I did look at her x-rays of the left tibia-fibula region, where she is complaining of pain. I see no acute fracture. No other acute pathology. I have asked her just to follow up with Dr. Ga Lemon as already scheduled. DIAGNOSIS: Anxiety. D: Kathy Mcneil DO TD: 07/06/17 14:23 JOB #: [id number] Transcribed by: art Electronically signed by: E-Sign: Dr. Kathy Mcneil D.O. 07/07/17 00:11 Page 1 of 1 [facility] Emergency Room Report EMERGENCY REPORT Observed: 07/07/2017 Status: F Source: [facility] 12[facility]14 AM [facility] REPORT NAME ACCOUNT SEX AGE ADMIT DISCHARGE PT MED. RECORD# NUMBER DATE DATE TYPE MOMO, [id number] F 46 07/05/17 07/06/17 3 [place] [id number] ROOM: ER DATE OF : 1970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 Discharge Impression: Tibial metaphysis fracture status post fall This note was generated with [employer] dictation software. It may contain incorrect words, spelling, and punctuation that were not noted in review of the chart prior to signing ED Disposition - Plan for ED Patient: Disposition: Home or Assisted Living Chief Complaint: Lower Extremity Injury Instructions: ED Fx Lower Ext Prescriptions: Hydrocodone Bitart/Apap 5-325 [Columbus 5/325] 1 - 2 tablet PO Q4H PRN PRN 6 Days #20 tablet PRN Reason: Pain Referrals: Ga Lemon MD [STAFF PHYSICIAN] - 1 Week What to do if you have Problems For any increased pain, shortness of breath, bleeding, nausea or vomiting, chest pain, or any unexpected problems, contact your Primary Care Provider. Call [facility] ([phone]) or report to the closest Emergency Room. Call 911 if necessary. 04/29/17 0034 <Electronically signed by Rossy Dumont MD> Date Rossy Dumont MD Cosigner Signature (If Indicated): Date CC: Kyung Herzog DO DISCHARGE INSTRUCTION Observed: 04/28/2017 Status: F Source: [place] 10:47 PM [facility] REPOSITORY [facility] Medical Records Department [address] [place] [address] Discharge Instruction 04/28/172242 MR#: [id number] Acct: [id number] Name: CHEYENNE BARR Rep #: [id number] : 1970 46 From: Rossy Dumont MD PCP: Kyung Herzog DO Status: REG ER ED Disposition - Plan for ED Patient: Disposition: Home or Assisted Living Chief Complaint: Lower Extremity Injury Instructions: ED Fx Lower Ext Prescriptions: Hydrocodone Bitart/Apap 5-325 [Columbus 5/325] 1 - 2 tablet PO Q4H PRN PRN 6 Days #20 tablet PRN Reason: Pain Referrals: Ga Lemon MD [STAFF PHYSICIAN] - 1 Week What to do if you have Problems For any increased pain, shortness of breath, bleeding, nausea or vomiting, chest pain, or any unexpected problems, contact your Primary Care Provider. Call [facility] ([phone]) or report to the closest Emergency Room. Call 911 if necessary. 04/28/172246 <Electronically signed by Rossy Dumont MD> Date Rossy Dumont MD Cosigner Signature (If Indicated): Date CC: Kyung Herzog DO LUMBAR SPINE 2 OR 3 Observed: 04/28/2017 Status: F Source: [place] VIEWS 9:39 PM [facility] Imaging Services [address] [place] [address] Lumbar Spine 2 or 3 Views MR#: [id number] Acct: [id number] Name: CHEYENNE BARR Rep #: [id number] : 1970 F 46 From: Alex Huizar MD PCP: Kyung Herzog DO Status: REG ER Study: Lumbar Spine 2 or 3 Views Date of Exam: 04/28/17 Exam# [id number] Ordering Dr: Rossy Dumont MD STUDY: X-RAY - LUMBAR SPINE REASON FOR EXAM: Female, 46 years old. Patient fell 3 days ago. Pain in lower back. TECHNIQUE: 3 view(s) of the lumbar spine were obtained. COMPARISON: None FINDINGS: Normal lumbar lordosis. There is no substantial scoliosis. There is a normal alignment of the vertebrae. An IVC filter is in place. Normal vertebral bodies and endplates. Normal disc space heights. The soft tissue structures are unremarkable. RAD/Lumbar Spine 2 or 3 Views IMPRESSION: Normal x-ray examination of the lumbar spine. Electronically Signed: Alex Huizar MD at 22:17 EST , Service support , CC: Kyung Herzog DO; Rossy Dumont MD Track Layer Head: Signed KNEE 4 OR MORE Observed: 04/28/2017 Status: F Source: [place] VIEWS 9:39 PM [facility] Imaging Services [address] [place] [address] Knee 4 or More Views MR#: [id number] Acct: [id number] Name: CHEEYNNE BARR Rep #: [id number] : 1970 F 46 From: Alex Huizar MD PCP: Kyung Herzog DO Status: REG ER Study: Knee 4 or More Views Date of Exam: 04/28/17 Exam# [id number] Ordering Dr: Rossy Dumont MD STUDY: X-RAY - LEFT KNEE REASON FOR EXAM: Female, 46 years old. Patient fell 3 days ago. Pain in left knee. Hx of left knee injury 9 months ago. TECHNIQUE: 4 view(s) of the knee. COMPARISON: None. FINDINGS: Normal visualized distal femur. Nondisplaced fracture of the anterior tibial metaphysis. Normal proximal tibiofibular articulation. Normal medial femorotibial compartment. Normal lateral femorotibial compartment. Normal patellofemoral articulation. The soft tissue structures are unremarkable. RAD/Knee 4 or More Views IMPRESSION: Nondisplaced fracture of the anterior tibial metaphysis. Electronically Signed: Alex Huizar MD at 22:19 EST , Service support , CC: Kyung Herzog DO; Rossy Dumont MD Track Layer Head: Signed EMERGENCY DEPARTMENT Observed: 04/07/2017 Status: F [facility] EMERGENCY DEPARTMENT SUMMARY NAME NUMBER SEX AGE ADMIT DISC TYPE MED.RECORD# BARR CHEYENNE [id number] F 46 03/24/17 03/25/17 E.R. [id number] ROOM:ER-A DATE OF :1970 PHYSICIAN NO.:[id number] PHYSICIAN NAME:E-SIGN WAQAS RODRÍGUEZ DO PHYSICIAN:CARLOS ALEX CHIEF COMPLAINT: Chest pain. HISTORY OF PRESENT ILLNESS: She has pain in the left upper chest, worse to move her left arm and worse to take a deep breath. Onset was approximately 2 hours prior to arrival, a little less than that, for which ibuprofen was taken at home. She states she has had this in the past. She states it is sharp like a knife. She has a history of blood clots. She has not been taking her Eliquis for about 4 months because she had a small spot develop on the left medial side of her knee, and so her doctor told her that she could stop her Eliquis at that point. She has a [place] filter in place. 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 She states she does not have any history of heart disease. She states she had a normal stress test followed by a normal catheterization approximately 3 years ago. Her family doctor is Dr. Herzog in [place]. She states she has not fallen. MEDICATIONS: She takes several medications for anxiety. SOCIAL HISTORY: Positive smoker. No alcohol use. She is not employed. She is here with her significant other of 14 years. FAMILY HISTORY: There is no history of cardiac disease in her mother or father. She states there is cancer. REVIEW OF SYSTEMS: No headache. No change in vision, hearing, or speech. No sweats. No fever. No chills. No vomiting. No diarrhea. No nausea. She states she is still having periods. No extremity discomfort. PHYSICAL EXAMINATION: She is examined in room #6. On exam at 2110 hours, she is pleasant, alert, and oriented. DIAGNOSTIC DATA: She had an EKG performed, which was timed at 2102 hours, and was a normal sinus mechanism with a rate of 103 and similar to EKGs she has had in the past November 06, 2016. The second EKG at 2253 hours rate is 77, and again no evidence of acuity. No change from prior. Her laboratory data was basically normal CBC, CMP, and so forth except for a D-dimer, which was about 1000, which was a surprising result. She was sent over for CT, and the CT showed no pulmonary embolus and no evidence of any significant pathology at all for which the patient was thankful. EMERGENCY DEPARTMENT COURSE AND TREATMENT: Here in the emergency room we provided for her Ativan, Toradol, and Dilaudid IV. All of her discomfort went away. Her vital signs at discharge at 0046 hours, 69 pulse, 16 respirations, 136/67 blood pressure, and 97% saturated. She is in no discomfort and feeling well. DIAGNOSIS: Chest wall pain. PLAN/DISPOSITION: I spoke to Dr. Sampson regarding her course at 0014 hours, and he felt she could go home. Since she was no longer taking Eliquis, she could take aspirin and follow up with her family doctor in the office, Dr. Herzog. Return p.r.n. as necessary. D: Waqas Rodríguez MD TD: 06:56 JOB #: [id number] Transcribed by: am 03/25/2017 19:22 ELECTRONICALLY SIGNED BY: DICTNAME 04/07/17 06:21 TROPONIN Collected: 03/25/2017 Status: F Source: [place] 12:10 AM [facility] TYPE CODE TESTS RESULT OUT OF REFERENCE UNITS RANGE LAB TROPONIN 0.00 - 0.05 ng/ml I(LOINC) TROPONIN I 0.01 Result Comment: Elevated troponin (above the 99th percentile) usually indicates myocardial ischemia. Results must be interpreted within the clinical setting. 1.Non-ischemic pathology can also cause elevated troponin levels (e.g., acute pulmonary embolism, myocarditis, pericarditis, heart failure, intracranial injury, rhabdomyolisis, sepsis, shock and renal insufficiency). 2.Approximately 1% of healthy adults have elevated troponin levels. 3.Analytical false positive results rarely occur(due to multiple interferences such as heterophile antibodies). Performed By: #### [id number] #### [place] [address] CT CHEST (PE PROTOCOL) Observed: 03/25/2017 Status: F Source: [place] 12:08 [place] [address] Patient: CHEYENNE BARR Phone#: : 1970 Age: 46 Gender: F Pt. Type: ER Account: [id number] Location: 052 Ordering: DR. WAQAS RODRÍGUEZ Exam Date: 03/24/2017/23:30 Family Phys: CARLOS PRUITTRENETTA Charge Code: 440196 Physician: Cataño Order #: [id number] DLP Dose#: 5.30 PROCEDURE: CT CHEST WITH CONTRAST FOR PE COMPARISON: None. INDICATIONS: Chest pain TECHNIQUE: After obtaining the patient's consent, CT images were obtained with non-ionic intravenous contrast material. Multi-planar images were created to optimize visualization of vascular anatomy with MPR/MIPS and 3D imaging. All CT scans at this facility use dose modulation, iterative reconstruction, and/or weight based dosing when appropriate to reduce radiation dose to as low as reasonably achievable. IV CONTRAST: Omnipaque 350,62ml TOTAL DOSE: 5.30 CTDIvol(mGy) FINDINGS: VASCULATURE: Normal. No visible pulmonary arterial thrombus or attenuation. AORTA: Normal. No aneurysm or dissection. LUNGS: A few apical bulla are present. No visible pulmonary disease. MARIA R: Normal. No mass or adenopathy. MEDIASTINUM: Normal. No mass or adenopathy. CARDIAC: Normal. No enlargement, pericardial thickening, or significant calcification. PLEURA: Normal. No mass or effusion. CHEST WALL: Normal. No mass or axillary adenopathy. LIMITED ABDOMEN: Normal. Limited images of the upper abdomen are unremarkable. BONES: Normal. No bony lesion or fracture. OTHER: Negative. Continued Report - Page 2 of 2 Patient: CHEYENNE BARR Phone#: : 1970 Age: 46 Gender: F Pt. Type: ER Account: [id number] Location: 2 Ordering: DR. WAQAS RODRÍGUEZ Exam Date: 03/24/2017/23:30 Family Phys: CARLOS PRUITTRENETTA Charge Code: 649002 Physician: Cataño Order #: [id number] DLP Dose#: 5.30 CONCLUSION: No acute disease. Emphysematous changes are present at the apices. Dictated by: Davina Wright MD on 03/25/2017 at 8:36 Approved by: Davina Wright MD on 03/25/2017 at 8:36 URINE Collected: 03/24/2017 Status: F [facility] REPOSITORY TYPE CODE TESTS RESULT OUT OF REFERENCE UNITS RANGE LAB NEGATIVE UR(LOINC) UR NEGATIVE LAB INTERNAL QC(LOINC) INTERNAL QC PASS LAB EXTERNAL QC DONE?(LOINC) EXTERNAL QC YES DONE? Performed By: #### [id number] #### [place] [address] CHEST PA/LAT Observed: 03/24/2017 Status: F [facility] PM [place] [address] Patient: CHEYENNE BARR Phone#: : 1970 Age: 46 Gender: F Pt. Type: ER Account: [id number] Location: 052 Ordering: DR. WAQAS RODRÍGUEZ Exam Date: 03/24/2017/21:44 Family Phys: CARLOS ALEX Charge Code: [id number] Physician: Cataño Order #: [id number] DLP Dose#: PROCEDURE: X-RAY CHEST PA/LAT 2 VIEWS COMPARISON: [facility], XR, CHEST PA/LAT, 04/30/2013, 16:43. INDICATIONS: Chest pain FINDINGS: LUNGS: Normal. No significant pulmonary parenchymal abnormalities. VASCULATURE: Normal. Unremarkable pulmonary vasculature. CARDIAC: Normal. No cardiac silhouette abnormality or cardiomegaly. MEDIASTINUM: Normal. No visible mass or adenopathy. PLEURA: Minimal blunting the posterior costophrenic angle is consistent with effusion BONES: Normal. No fracture or visible bony lesion. OTHER: Negative. CONCLUSION: 1. Minimal posterior effusion. 2. No other acute abnormality is identified. Dictated by: Davina Wright MD on 03/25/2017 at 8:15 Approved by: Davina Wright MD on 03/25/2017 at 8:15 CBC Collected: 03/24/2017 Status: F Source: [place] 9:59 PM [facility] REPOSITORY TYPE CODE TESTS RESULT OUT OF RANGE REFERENCE UNITS LAB CBC(LOINC) CBC Result Comment: CBC-COMPLETE BLOOD COUNT LAB WBC(LOINC) 4.5 - 10.8 x 10EE3/UL WBC 10.7 LAB RBC(LOINC) 4.10 - x 10EE6/UL 5.30 RBC 4.46 LAB HEMOGLOBIN(LOINC 12.0 - g/dl ) 16.0 HEMOGLOBIN 12.2 LAB HEMATOCRIT(LOINC 34.0 - % ) 46.0 HEMATOCRIT 37.0 LAB MCV(LOINC) 80 - 99 fl MCV 83 LAB MCH(LOINC) 27 - 33 pg MCH 27 LAB MCHC(LOINC) 32 - 36 X10 3 MCHC 33 LAB RDW/CV(LOINC) 12.0 - % 15.6 RDW/CV High 20.4 LAB PLATELET(LOINC) 150 - 450 x10EE3/UL PLATELET 429 LAB MPV(LOINC) 6.6 - 10.5 fl MPV 8.2 Result Comment: AUTOMATED DIFFERENTIAL LAB NEUT %(LOINC) 46.0 - 76.0 % NEUT % 48.8 LAB LYMPH %(LOINC) 20.0 - 45.0 % LYMPH % 38.7 LAB MONOS %(LOINC) 0.0 - 10.0 % MONOS % 9.7 LAB EO %(LOINC) 0.0 - 7.0 % EO % 1.9 LAB BASO %(LOINC) 0.0 - 2.0 % BASO % 0.9 LAB Lymph #(LOINC) 0.80 - 2.80 x10EE3/U L Lymph # High 4.10 LAB Neut #(LOINC) 1.50 - 7.10 x10EE3/U L Neut # 5.20 LAB [place] #(LOINC) 0.20 - 1.00 x10EE3/U L [place] # 1.00 LAB EO #(LOINC) 0.00 - 0.50 x10EE3/U L EO # 0.20 LAB Baso #(LOINC) 0.00 - 0.10 x10EE3/U L Baso # 0.10 LAB MANUAL DIFF(LOINC) MANUAL DIFF N/A LAB MORPHOLOGY(LOINC ) MORPHOLOGY N/A Result Comment: {CD] Performed By: #### [id number] #### [facility],[address] [place] [address] TROPONIN Collected: 03/24/2017 Status: F Source: [facility] 9:59 PM [facility] REPOSITORY TYPE CODE TESTS RESULT OUT OF REFERENCE UNITS RANGE LAB TROPONIN 0.00 - 0.05 ng/ml I(LOINC) TROPONIN I <0.01 Result Comment: Elevated troponin (above the 99th percentile) usually indicates myocardial ischemia. Results must be interpreted within the clinical setting. 1.Non-ischemic pathology can also cause elevated troponin levels (e.g., acute pulmonary embolism, myocarditis, pericarditis, heart failure, intracranial injury, rhabdomyolisis, sepsis, shock and renal insufficiency). 2.Approximately 1% of healthy adults have elevated troponin levels. 3.Analytical false positive results rarely occur(due to multiple interferences such as heterophile antibodies). Performed By: #### [id number] #### [facility],[address] [place] [address] D-DIMER, QUANTITATIVE Collected: 03/24/2017 Status: F Source: [facility] 9:59 PM [facility] REPOSITORY TYPE CODE TESTS RESULT OUT OF REFERENCE UNITS RANGE LAB D-DIMER, QUANTITATI VE(LOINC) D-DIMER, QUANTITATIVE Result Comment: QUANT D-DIMER LAB D-DIMER 0 - 230 ng/ml QUANT(LOINC) High D-DIMER QUANT 1031 Performed By: #### [id number] #### [place] [address] LIPASE Collected: 03/24/2017 Status: F Source: [facility] 9:59 PM [facility] REPOSITORY TYPE CODE TESTS RESULT OUT OF REFERENCE UNITS RANGE LAB LIPASE(LOIN 18.0 - 51.0 U/L C) LIPASE 28.0 Performed By: #### [id number] #### [place] [address] CMP WITH EGFR Collected: 03/24/2017 Status: F Source: [facility] 9:59 PM [facility] REPOSITORY TYPE CODE TESTS RESULT OUT OF RANGE REFERENCE UNITS LAB CMP with eGFR(LOINC) CMP with eGFR Result Comment: COMPREHENSIVE METABOLIC PANEL LAB SODIUM(LOINC) 136 - 145 mmol/l SODIUM 137 LAB POTASSIUM(LOINC) 3.5 - 5.1 mmol/L POTASSIUM 4.4 LAB CHLORIDE(LOINC) 98 - 107 mmol/L CHLORIDE 103 LAB CO2(LOINC) 21.0 - mmol/L 31.0 CO2 24.5 LAB GLUCOSE(LOINC) 74 - 106 mg/dl GLUCOSE 77 LAB BUN(LOINC) 6 - 20 mg/dl BUN 14 LAB CREATININE(LOINC) 0.6 - 1.2 mg/dl CREATININE 0.6 LAB AST/SGOT(LOINC) 13 - 39 U/L AST/SGOT 13 LAB ALK PHOS(LOINC) 38 - 126 U/L ALK PHOS 90 LAB CALCIUM(LOINC) 8.6 - mg/dl 10.2 CALCIUM 9.3 LAB TOTAL 6.4 - 8.3 g/dl PROTEIN(LOINC) TOTAL PROTEIN 6.4 LAB ALBUMIN(LOINC) 3.4 - 4.8 g/dL ALBUMIN 4.2 LAB GLOBULIN(LOINC) 1.5 - 3.8 G/DL GLOBULIN 2.2 LAB A/G RATIO(LOINC) 0.9 - 1.6 A/G High RATIO 1.9 LAB TOTAL BILI(LOINC) 0.0 - 1.5 mg/dl TOTAL BILI 0.2 LAB B/C RATIO(LOINC) 0 - 30 ratio B/C RATIO 23 LAB ALT/SGPT(LOINC) 8 - 35 U/L ALT/SGPT 11 LAB ANION GAP(LOINC) 10 - 20 mmol/L ANION GAP 14 LAB AGE(LOINC) years AGE 46 LAB eGFR(LOINC) 60 - 999 ML/MINUTE eGFR >60 LAB eGFR(AA)(LOINC) 60 - 999 ML/MINUTE eGFR(AA) >60 Result Comment: ACCORDING TO THE NATIONAL KIDNEY DISEASE EDUCATION PROGRAM(NKDE), A NORMAL eGFR IS A VALUE GREATER THAN OR EQUAL TO 60 ML/MIN/1.73 SQ METERS. CHRONIC KIDNEY DISEASE: <60mL/MIN/1.73 SQ METERS KIDNEY FAILURE: <15mL/MIN/1.73 SQ METERS THIS TEST SHOULD ONLY BE USED FOR PATIENTS 18 YEARS OF AGE AND OLDER. Performed By: #### [id number] #### [facility],[address] [place] [address] ALLERGIES ALLERGIES DATE TYPE / CODE NAME / CODE REACTION SEVERITY SOURCE 11/28/2017 Drug zolpidem Anaphylaxis Unknown [place] Allergy/416 tartrate/[id number] [facility] 231853(SNOM 4147(RXNORM) [facility] ED CT) Repository 11/28/2017 Drug aspirin/[id number] Other Unknown [place] Allergy/416 587(RXNORM) [facility] 829479([facility] ED CT) Repository 11/28/2017 Drug baclofen/G11808 Other Unknown [place] Allergy/416 1677(RXNORM) [facility] 328138([facility] ED CT) Repository 11/28/2017 Drug tetracycline/F0 Other Unknown [place] Allergy/416 [id number](RXNORM [facility] 949915([facility] ED CT) Repository Drug ASA RASH Moderate [facility] Allergy/416 (aspirin)/94792 ([facility] 572277(SNOM 008(RXNORM) Modifier) [facility] ED CT) (Qualifier Repository Value) Drug TETRACYCLINE/00 RASH Moderate [facility] [place] Allergy/416 291568(RXNORM) ([facility] 978476(SNOM Modifier) [facility] ED CT) (Qualifier Repository Value) Drug BACLOFEN/938717 RASH Moderate [place] [place] Allergy/416 60(RXNORM) ([facility] 843207(SNOM Modifier) [facility] ED CT) (Qualifier Repository Value) Drug AMBIEN/75984320 RASH Moderate [place] [place] Allergy/416 (RXNORM) ([facility] 416666(SN Modifier) [facility] ED CT) (Qualifier Repository Value) ENCOUNTERS ENCOUNTERS ADMIT/DISCHARGE ACCOUNT NUMBER ADMITTING ENCOUNTER LOCATION SOURCE CLASS 03/15/2018/03/15/20 [id number] TOSHIA Ambulatory Kana Pomerene 18 [facility] Repository 02/25/2018/02/26/20 [id number] Emergency [address] ding:ED Repository 02/10/2018/02/11/20 [id number] TOSHIA Ambulatory Kana Pomerene 18 [facility] Repository 01/30/2018/02/01/20 [id number] KATHY MCNEIL Emergency Buildin[address] [place] [address] 18 DO Room: ERBed: [facility] Repository 01/27/2018 [id number] TOSHIA Ambulatory Kana Pomerene [facility] Repository 01/27/2018 [id number] WANDER Ambulatory Kana Pomerene KYUNG [facility] Repository 01/21/[id number] Repository 01/20/[id number] Repository 01/19/[id number] Repository 01/18/[id number] Repository 01/15/2018/01/16/20 [id number] Emergency [address] ding:ED Repository 01/06/2018/01/07/20 [id number] TOSHIA Ambulatory Kana Pomerene 18 [facility] Repository 12/17/2017/12/19/19 [id number] KATHY MCNEIL Emergency Buildin [facility] 18 DO Room: ERBed: [facility] Repository 11/28/2017/11/30/19 [id number] Emergency [address] ding:ED Repository 11/25/2017/11/27/19 [id number] [place] [address] ing:[facility] EMERGENCYRoo Repository m: WERBed: WERA6 11/20/2017/11/22/19 [id number] KATHY MCNEIL Emergency Buildin Kana Jeffrey 18 DO Room: ERBed: [facility] Repository 11/07/2017/11/09/19 [id number] KATHY MCNEIL Emergency Buildin Kana Jeffrey 18 DO Room: ERBed: [facility] Repository 11/04/2017/11/05/[id number] BASIA Emergency Buildin Kanaerica Jeffrey 18 GERARDO Marquez Room: ERBed: [facility] Repository 09/15/2017/09/16/19 [id number] RENNY, Emergency Buildin Kana Jeffrey [address] DR ASIF Burgess Room: ERBed: [facility] Repository 08/13/2017/08/14/19 [id number] Emergency [address] ding:ED Repository 07/19/2017/07/21/19 [id number] KATHY MCNEIL Emergency Buildin Kana Jeffrey 18 DO Room: ERBed: [facility] Repository 07/06/2017/07/08/19 [id number] RENNY Emergency Buildin Kana Jeffrey [address] DR ASIF Burgess Room: ERBed: [facility] Repository 07/05/2017/07/07/19 [id number] KATHY MCNEIL Emergency Buildin Kana Jeffrey 18 DO Room: ERBed: [facility] Repository 05/21/2017/05/21/19 [id number] Emergency [address] ding:ED Repository 04/28/2017/04/28/19 [id number] Emergency [address] ding:ED Repository 03/24/2017/03/25/20 [id number] ROMEL Emergency Buildin Kana Jeffrey 17 WAQAS DO Room: ERBed: [facility] Repository PAYERS PAYERS ENCOUNTER GUARANTOR PAYER SUBSCRIBER SOURCE 03/15/2018 [place] Munozerene BLANKENSHIPDOB: Insurance:UNITED BLANKENSHIPDOB: [facility] [id number] [facility] [address] Repository [address] [place] [address], Number: [facility]ubbaMERCY HEALTH [facility] THE JEW[place]ISAI [place] [id number]: [id number] [place] [id number] Date:Plan Name:X4 () 02/25/2018 [place]NE Muir Primary Insurance:[facility] CHEYENNE A Redrock [id number] [facility] BLANKENSHIPDOB: [facility] Number: [id number], [id number] Repository [place] [address]Hwa: Date:1419-69-55PW [address] [place] [address] () [address]IC: 02/25/2018 Secondary NOT GIVENUNK Redrock Insurance:SELF PAY [facility] Number: Effective Repository Date:2018-02-25 02/10/2018 CHEYENNE Primary CHEYENNE Jeffrey BLANKENSHIPDOB: Insurance:UNITED BLANKENSHIPDOB: [facility] [id number] [facility] [address] Repository [address] [place] [address], Number: [facility]ubbaMERCY [facility] JEWISH HOSPITALADRIAMERCY [facility] [place] [id number]: [id number] Ms [id number] Date:Plan Name:X4 () 01/30/2018 [place]YENNE Primary CHEYENNE Jeffrey BLANKENSHIPDOB: Insurance:UNITED BLANKENSHIPDOB: [facility] [id number] [facility] [address] Repository [address] [place] [address], Number: [facility]RI[facility] [place] [id number]: [id number] [place] [id number] Date:Plan Name:X4 () 01/27/2018 CHEYENNE Primary CHEYENNE Jeffrey BLANKENSHIPDOB: Insurance:UNITED BLANKENSHIPDOB: [facility] [id number] [facility] [address] OUTPATIENTPolicy [address] Repository DASHAWN, Number: [place] [address]Gex: [id number] [place] [id number] Date:Plan Name:X4 (HP) 01/21/2018 [facility] BLANKENSHIPDOB: Insurance:United BLANKENSHIPDOB: [facility] [id number] Repository SR MedicaidPolicy Number: 0 SR 83DASHAWN, [id number] [address] [place] [address]Opk: Date:Plan Name:Health [place] [id number]: (HP) (HP) 01/20/2018 [facility] BLANKENSHIPDOB: Insurance:[employer] BLANKENSHIPDOB: [facility] [id number] Repository SR MedicaidPolicy Number: 0 SR DASHAWN, [id number] [address] [place] [address]Ikj: Date:Plan Name:[place] [id number]: (HP) (HP) 01/19/2018 [facility] BLANKENSHIPDOB: Insurance:[employer] BLANKENSHIPDOB: [facility] [id number] Repository SR MedicaidPolicy Number: 0 SR 83DASHAWN, [id number] [address] [place] [address]4042Xcv: Date:Plan Name:[place] [address]Cct: (HP) (HP) 01/18/2018 [facility] BLANKENSHIPDOB: Insurance:United BLANKENSHIPDOB: [facility] [id number] Repository SR MedicaidPolicy Number: 0 SR 83YOLANDAMERCY [facility], [id number] [address] [place] [address]Tpw: Date:Plan Name:[place] [id number]: () () 01/15/2018 CHEYENNE A Primary Insurance:[facility] CHEYENNE Cummingsoster [id number] [facility] PLANPolicy BLANKENSHIPDOB: [facility] SR Number: [id number] [address], [id number] [place]ository [place] [address]Sic: Date:9728-01-57UH [address] [place] [address] () [address]NW: 01/15/2018 Secondary NOT GIVENUNK Reena Insurance:SELF PAY [facility] Number: Effective Repository Date:2018-01-15 01/06/2018 CHEYENNE Primary CHEYENNE Treivnone BLANKENSHIPDOB: Insurance:UNITED BLANKENSHIPDOB: [facility] [id number] [facility] OUTPATIENTPolicy [address] Repository [address] [place] [address], Number: [address] [place] [address]Eli: [id number] [place] [id number] Date:Plan Name:X4 () 12/17/2017 CHEYENNE Primary CHEYENNE Trevinone BLANKENSHIPDOB: Insurance:UNITED BLANKENSHIPDOB: [facility] [id number]Policy [address] Repository [address] [place] [address], Number: [address] [place] [address] [id number] [place] [id number]: Date:Plan Name: () 12/17/2017 Secondary CHEYENNE Trevinone Insurance:UNITED BLANKENSHIPDOB: [facility] [id number] [facility] PLAN PHYSICIPolicy [address] Repository Number: [address] [place] [address], [id number] [place] [id number] Date:Plan Name:X8 11/28/2017 Cheyenne A Primary Insurance:[facility] Cheyenne Cummingsoster [id number] [facility] PLANDignity Health Mercy [facility] Medical Centericy BlankenshipDOB: Community Sr Number: [id number] [address], [id number] Repository [place] [address]Toi: Date:9212-57-67UV [address] [place] [address] () [address]QN: 11/28/2017 Secondary NOT GIVENUNK Reena Insurance:SELF PAY [facility] Number: Effective Repository Date:2017-11-28 11/25/2017 [facility] BlankenshipDOB: Insurance:[facility] CenterenstrihealthDOB: [facility] [id number] Repository [address] Number: [address] [place] [address], [id number] [address] [place] [address]Ejn: Date:[place] [address]Hsq: Name:[facility] () [id number] () [place] [address]FU: 11/20/2017 [facility] CHEYENNE Jeffrey BLANKENSHIPDOB: Insurance:UNITED BLANKENSHIPDOB: [facility] [id number] [facility] [address] Repository [address] [place] [address], Number: [address] [place] [address] [id number] Ms [id number]: Date:Plan Name: () 11/07/2017 [facility] CHEYENNE Jeffrey BLANKENSHIPDOB: Insurance:UNITED BLANKENSHIPDOB: [facility] [id number] [facility] [address] Repository [address] [place] [address], Number: [address] [place] [address] [id number] Ms [id number]: Date:Plan Name:X4 () 11/04/2017 [facility] CHEYENNE Jeffrey BLANKENSHIPDOB: Insurance:UNITED BLANKENSHIPDOB: [facility] [id number] Repository [address] [place] [address], Number: [address] [place] [address] Ms [id number] Ms [id number]: Date:Plan Name:X4 () 09/15/2017 CHEYENNE Primary CHEYENNE Jeffrey BLANKENSHIPDOB: Insurance:UNITED BLANKENSHIPDOB: [facility] [id number] [facility] [address] OUTPAT[address] Repository [address] [place] [address], Number: [address] [place] [address] [id number] [place] [id number]: Date:Plan Name:X4 () 08/13/2017 Cheyenne A Primary Insurance:[facility] Cheyenne A Reena [id number] [facility] BlankenshipDOB: [facility] Sr Number: [id number] [address], [id number] Repository [place] [address]Url: Date:5169-60-17AK [address] [place] [address] () 04806HL: 08/13/2017 Secondary NOT GIVENUNK Reena Insurance:SELF PAY [facility] Number: Effective Repository Date:2017-08-13 07/19/2017 CHEYENNE Primary CHEYENNE Jeffrey BLANKENSHIPDOB: Insurance:[place] BLANKENSHIPDOB: [facility] [id number] [facility] [address] OUTPAT[address]Policy [address] Repository [address] [place] [address], Number: [address] [place] [address] [id number] Ms [id number]: Date:Plan Name:X4 () 07/06/2017 CHEYENNE Primary CHEYENNE Jeffrey BLANKENSHIPDOB: Insurance:[place] BLANKENSHIPDOB: [facility] [id number] Repository [address] [place] [address], Number: [address] [place] [address] [id number] Ms [id number]: Date:Plan Name:X4 () 07/05/2017 CHEYENNE Primary CHEYENNE Jeffrey BLANKENSHIPDOB: Insurance:ESSENT[facility] HEALTHDOB: [facility] [id number] [facility] RT OUTPATIENTPolic [address] Repository [address] [place] [address], Number: [address] [place] [address] [id number] [place] [id number]: Date:Plan Name:X4 () 05/21/2017 Cheyenne A Primary Insurance:[facility] Cheyenne Muir Redrock [id number] [facility] BlankenshipDOB: [facility] Sr Number: [id number] [id number] Repository [place] [address]Zur: Date:8954-34-12IV [address] [place] [address] () 901[address]WW: 05/21/2017 Secondary NOT GIVENUNK Reena Insurance:SELF PAY [facility] Number: Effective Repository Date:2017-05-21 04/28/2017 Cheyenne A Primary Insurance:[facility] Cheyenne A Redrock [id number] [facility] BlankenshipDOB: Community Sr Number: [id number] [id number] Repository de [address]Awf: Date:5197-90-27ZI [address] [place] [address] () 58640LM: 04/28/2017 Secondary NOT GIVENUNK Reena Insurance:SELF PAY [facility] Number: Effective Repository Date:2017-04-28 03/24/2017 CHEYENNE Primary CHEYENNE Jeffrey BLANKENSHIPDOB: Insurance:[place] BLANKPENNSYLVAN[facility] HOSPITALDOB: [facility] [id number] OUTPATIENTPolicy [address] Repository [address] [place] [address], Number: [address] [place] [address] [id number] [place] [id number]: Date:Plan Name:X4 ()
== END 2018-02-25 13:28 | disposition home or self-care (01) ==
LOC: ED 11:33
PROVIDERS: Emergency Provider Emergency Medicine; Family Provider Nurse Practitioner Family; PCP Nurse Practitioner Family
DX: R07.89 Other chest pain (principal); S16.1XXA Strain of muscle, fascia and tendon at neck level, initial encounter; W00.0XXA Fall on same level due to ice and snow, initial encounter; M79.602 Pain in left arm; J44.9 Chronic obstructive pulmonary disease, unspecified; J45.909 Unspecified asthma, uncomplicated; Z72.0 Tobacco use
CPT/HCPCS: 71046; 72040; 73060; 99283

== ENCOUNTER 2018-07-26 19:39 | Emergency (ER) | payer MEDICAID, SELFPAY ==
[2018-07-26 19:40] VITALS: BP 139/102; PULSE 109; PULSE 99; RESP 15; RESP 17; TEMP 36; O2SAT 97; BMI 31.4
--- NOTE | 2018-07-26 19:49 | US_ITS ---
STUDY: VENOUS DOPPLER ULTRASOUND - LEFT LOWER EXTREMITY REASON FOR EXAM: Female, 47 years old. Leg pain and swelling started last night TECHNIQUE: Ultrasound evaluation of the deep vein system to include lewis-scale imaging and compression was performed. Lewis-scale imaging and Doppler sonographic evaluation, including duplex spectral analysis and qualitative color flow sonography, was performed. COMPARISON: None. FINDINGS: No deep venous thrombosis is identified. All visualized veins demonstrate normal compressibility, augmentation and/or color flow. US/Venous Duplex Imag/Limited/Uni IMPRESSION: No DVT is identified. Electronically Signed: Asif Messina MD at 21:03 EDT Tel , Service support ,
[2018-07-26] MEDS: HYDROcodone Bitartrate/Apap 5/325 Tablet PO (22:18)
--- NOTE | 2018-07-26 23:14 | ED.VISSUMM ---
- ER Visit Summary Date of Service: 07/26/18 Chief Complaint: Left leg pain and swelling History of Present Illness: The patient is a 47 F with left leg pain and swelling today. She denies any known injury. She does have a history of blood clots but is not currently on blood thinners. She does have an IVC filter. Physical Examination: Vital signs remarkable only for heart rate 109. Patient sitting upright in bed no acute distress. Heart is regular rate and rhythm. Lung sounds are clear. Abdomen soft and nontender. Lower extremity examination reveals 1+ right lower extremity edema and 2+ left lower extremity edema. Skin coloration is unremarkable. She has mild muscular tenderness in the left leg. Strong distal pulses and normal sensation are noted. Normal range of motion. Test Results: Venous ultrasound reveals no evidence of DVT. Emergency Department Course and Treatment: Patient is given p.o. Chittenango. On repeat evaluation she is resting more comfortably. Discussed with her at this time I do not know the cause of her discomfort. We will treat her with analgesics. She was encouraged to elevate her legs above the level of her heart to see if that improves the swelling. Treatment Plan: [] Disposition: Discharge Impression: Left leg pain, uncertain etiology This note was generated with [facility] dictation software. It may contain incorrect words, spelling, and punctuation that were not noted in review of the chart prior to signing ED Disposition - Plan for ED Patient: Disposition: Home or Assisted Living Instructions: ED Muscle Aching Prescriptions: Hydrocodone Bitart/Apap 5-325 [Chittenango 5MG-325MG] 1 tablet PO Q6H PRN PRN 3 Days #10 tablet PRN Reason: Pain Referrals: Lida Almazan, HERNANDEZ-C [Primary Care Provider] - 3-5 Days if not improving
[2018-07-26 23:38] VITALS: RESP 18
== END 2018-07-26 23:40 | disposition home or self-care (01) ==
PROVIDERS: Emergency Provider Emergency Medicine; Family Provider Nurse Practitioner Family; PCP Nurse Practitioner Family
DX: M79.605 Pain in left leg (principal); R60.0 Localized edema; I10 Essential (primary) hypertension; G25.81 Restless legs syndrome; F41.9 Anxiety disorder, unspecified; F31.9 Bipolar disorder, unspecified; Z72.0 Tobacco use; Z86.718 Personal history of other venous thrombosis and embolism
CPT/HCPCS: 93971; 99283

== ENCOUNTER 2018-11-01 11:17 | Emergency (ER) | payer MEDICAID, SELFPAY ==
[2018-11-01 11:18] VITALS: BP 148/89; PULSE 97; RESP 17; TEMP 36.4; O2SAT 97; BMI 29.2
--- NOTE | 2018-11-01 12:25 | ED.VISSUMM ---
- ER Visit Summary Date of Service: 11/01/18 Chief Complaint: Back pain History of Present Illness: The patient is a 47 F who presents emergency department 3 to 4 days of back pain. She states that she has had this before. She had prior back surgery but cannot tell me what type. She states that she has been doing well with her back pain. She has not been currently seeing anybody for it. 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 She states that her back feels very tight in the lumbar region. Worse with any type of movement. No position of comfort helps. There is no radiation to the leg. She is tried wweg-gvm-[id number] measures such as Tylenol Aleve and Biofreeze. No fevers. No IV drug use history. No rashes. She currently is in between primary care providers. Physical Examination: Afebrile vital signs stable Gen: Well-nourished well-developed Head: Normocephalic atraumatic Eyes: Perrl EOMI ENT: TMs clear no rhinorrhea moist mucous membranes Neck: Supple no lymphadenopathy no JVD nontender CVS: Regular rate rhythm no murmurs normal S1-S2 Respiratory: No distress clear to auscultation bilaterally chest nontender Abdomen: Soft nontender nondistended normal bowel sounds no masses Back: Palpation in the lumbar paraspinal musculature. Is a healed midline incision. There is no erythema swelling warmth or fluctuance. Extremity: Nontender no edema Skin: Normal color no rash Neuro: alert orientated ?3 CN II-XII intact normal strength sensation reflexes gait cerebellar Psych: Normal affect normal mood Emergency Department Course and Treatment: Received a dose of Toradol and Norflex. This point I suspect this is muscular spasm. I do not suspect abscess herniation cauda equina or other neurologic emergency. Patient will be treated with anti-inflammatories and Flexeril. Follow-up with primary care as needed return if worsening Impression: 1. Lumbar muscle spasm This note was generated with [employer] dictation software. It may contain incorrect words, spelling, and punctuation that were not noted in review of the chart prior to signing ED Disposition - Plan for ED Patient: Disposition: Home or Assisted Living Instructions: BACK SPASM, No Trauma Prescriptions: cycloBENZAPRine HCl [Flexeril] 10 mg PO TID PRN #15 tab PRN Reason: Muscle Spasm Prescription Printed Ibuprofen [Motrin] 800 mg PO TID PRN PRN #20 tab PRN Reason: Pain Prescription Printed Additional Instructions: I would recommend you call your new PCP that you wish to see you soon as possible so that you do not go days to weeks without your other medications
[2018-11-01] MEDS: Orphenadrine 60 MG/2 ML Ampul IM (12:32)
[2018-11-01] MEDS: Ketorolac 60 MG/2 ML Vial IM (12:33)
== END 2018-11-01 13:18 | disposition home or self-care (01) ==
PROVIDERS: Emergency Provider Emergency Medicine
DX: M62.830 Muscle spasm of back (principal); I10 Essential (primary) hypertension; J45.909 Unspecified asthma, uncomplicated; Z72.0 Tobacco use
CPT/HCPCS: 96372; 99282

== ENCOUNTER → 2019-02-15 12:35 | Outpatient (CLI) | payer MEDICAID, SELFPAY ==
[2019-02-15 13:07] LABS: Platelet Count 263 K/mm3 (150-450)
[2019-02-15 13:16] LABS: AST(SGOT) 11 U/L (15-37); Alanine Aminotransfer ALT/SGPT 16 U/L (13-56)
[2019-02-15 13:32] LABS: Valproic Acid (Depakene) Level 40 ug/mL (50-100)
== END ==
PROVIDERS: Referring Provider Psychiatry & Neurology Psychiatry; Visit Provider Psychiatry & Neurology Psychiatry
DX: Z79.899 Other long term (current) drug therapy (principal)
CPT/HCPCS: 36415; 80164; 82140; 84450; 84460; 85049

== ENCOUNTER → 2019-06-24 14:31 | Outpatient (CLI) | payer MEDICAID, SELFPAY ==
[2019-02-15 09:39] VITALS: BMI 29.7
--- NOTE | 2019-06-24 14:35 | RAD_ITS ---
STUDY: X-RAY - CERVICAL SPINE REASON FOR EXAM: Female, 48 years old. Neck pain TECHNIQUE: 3 view(s) of the cervical spine were obtained. COMPARISON: None FINDINGS: Normal anterior atlantoaxial articulation. Normal odontoid process. Normal cervical lordosis. Normal vertebral bodies and endplates. Moderate degree of disc space narrowing at the C4-C5 level with minimal retrolisthesis of C4 on C5. Normal visualized intervertebral neuroforamina. The soft tissue structures are unremarkable. RAD/Cerv Spine 2 or 3 Views IMPRESSION: Moderate degree of disc space narrowing at the C4-C5 level with minimal retrolisthesis of C4 on C5. Electronically Signed: Scott Mauro, at 15:09 EDT , Service support ,
--- NOTE | 2019-06-24 14:35 | RAD_ITS ---
STUDY: X-RAY - LUMBAR SPINE REASON FOR EXAM: Female, 48 years old. Lower back pain radiates down left leg TECHNIQUE: 3 view(s) of the lumbar spine were obtained. COMPARISON: Comparison is made with prior study dated 12/27/2017. FINDINGS: Normal lumbar lordosis. There is no substantial scoliosis. There is a normal alignment of the vertebrae. Normal vertebral bodies and endplates. Mild degree of disc space narrowing at the L4-L5 level A filter is seen in the inferior vena cava. RAD/Lumbar Spine 2 or 3 Views IMPRESSION: Mild degree of disc space narrowing at the L4-L5 level. Electronically Signed: Scott Mauro, at 15:07 EDT , Service support ,
== END ==
PROVIDERS: Referring Provider Anesthesiology Pain Medicine; Visit Provider Anesthesiology Pain Medicine
DX: M54.2 Cervicalgia (principal); M54.9 Dorsalgia, unspecified
CPT/HCPCS: 72040; 72100

== ENCOUNTER 2019-07-27 18:21 | Emergency (ER) | payer MEDICAID, SELFPAY ==
[2019-02-15 09:39] VITALS: BMI 29.7
[2019-07-27 18:22] VITALS: BP 128/64; PULSE 74; RESP 15; TEMP 36.6; O2SAT 97; BMI 29.3
[2019-07-27] MEDS: oxyCODONE 5 MG Tablet PO (18:57)
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
--- NOTE | 2019-07-27 19:13 | US_ITS ---
STUDY: VENOUS DOPPLER ULTRASOUND - LEFT LOWER EXTREMITY REASON FOR EXAM: Female, 48 years old. LT LEG SWELLING AND PAIN THIS MORNING-ANTERIOR LATERAL KNEE TECHNIQUE: Ultrasound evaluation of the deep vein system to include lewis-scale imaging and compression was performed. Lewis-scale imaging and Doppler sonographic evaluation, including duplex spectral analysis and qualitative color flow sonography, was performed. COMPARISON: None. FINDINGS: Common Femoral Vein: Normal compression, spontaneity and augmentation. Normal color Doppler. Common Femoral Vein/Greater Saphenous Junction: Normal compression. Deep Femoral Vein: Not assessed Femoral Proximal: Normal compression. Femoral Middle: Normal compression, spontaneity and augmentation. Normal color Doppler. Femoral Distal: Normal compression. Popliteal Vein: Normal compression, spontaneity and augmentation. Normal color Doppler. Posterior Tibial Vein: Normal compression. Peroneal Vein: Normal compression. There is no demonstrated deep venous thrombosis. US/Venous Duplex Imag/Limited/Uni IMPRESSION: Normal venous Doppler ultrasound of the lower extremity. Electronically Signed: Nishant Long, at 20:01 EDT Tel , Service support ,
[2019-07-27 20:19] VITALS: BP 141/96; PULSE 72; RESP 18
== END 2019-07-27 20:19 | disposition home or self-care (01) ==
PROVIDERS: Emergency Provider Emergency Medicine
DX: M79.605 Pain in left leg (principal); E78.5 Hyperlipidemia, unspecified; I10 Essential (primary) hypertension; M54.9 Dorsalgia, unspecified; G89.29 Other chronic pain; F17.200 Nicotine dependence, unspecified, uncomplicated; G40.909 Epilepsy, unspecified, not intractable, without status epilepticus; Z82.49 Family history of ischemic heart disease and other diseases of the circulatory system; Z88.1 Allergy status to other antibiotic agents; Z88.6 Allergy status to analgesic agent; Z88.8 Allergy status to other drugs, medicaments and biological substances
CPT/HCPCS: 93971; 99283

== ENCOUNTER → 2019-10-24 10:07 | Outpatient (CLI) | payer MEDICAID, SELFPAY ==
--- NOTE | 2019-10-24 10:19 | MRI_ITS ---
STUDY: MRI LUMBAR SPINE WITHOUT CONTRAST REASON FOR EXAM: Female, 48 years old. LOWER back and L leg pain, H/O SX 7 YRS AGO, PAIN NOT IMPROVED TECHNIQUE: Standardized fat and water weighted pulse sequences were obtained in the sagittal and axial planes. COMPARISON: X-ray dated 06-24-2019. FINDINGS: Lumbar lordosis preserved. No significant scoliosis. Conus medullaris terminates normally at the L1 level. No acute fracture. No acute dislocation. No acute cortical destruction. Hemangiomas. Normal paraspinal muscles. Normal aorta. Normal retroperitoneum. Tiny left renal cyst. T12-L1: Normal endplates. Normal disc height, hydration and morphology. Normal bilateral facet joints. Normal central canal and bilateral lateral recesses. Normal bilateral intervertebral neural foramina. L1-2: Schmorl''s nodes. Normal disc height, hydration and morphology. Normal bilateral facet joints. Normal central canal and bilateral lateral recesses. Normal bilateral intervertebral neural foramina. L2-3: Schmorl''s node. Normal disc height, hydration and morphology. Normal bilateral facet joints. Normal central canal and bilateral lateral recesses. Normal bilateral intervertebral neural foramina. L3-4: Tiny Schmorl''s nodes. Normal disc height, hydration and morphology. Facet degenerative arthrosis. Normal central canal and bilateral lateral recesses. Neural foraminal narrowing without impingement. L4-5: Minimal endplate spondylosis. Asymmetric disc bulge, annular fissure, without canal narrowing. Facet degenerative arthrosis. Lateral recess narrowing without impingement. Bilateral neural foraminal narrowing with impingement on the left. Postsurgical change/laminotomy. L5-S1: Normal endplates. Normal disc height, hydration and morphology. Normal bilateral facet joints. Normal central canal and bilateral lateral recesses. Normal bilateral intervertebral neural foramina. MRI/Spine Lumbar (Routine) IMPRESSION: L4-5 disc bulge without central canal narrowing L4-5 lateral recess narrowing without impingement L4-5 left neural foraminal narrowing with impingement L4-5 postsurgical change/laminotomy Mild osseous degenerative features Electronically Signed: Ap Bull DO at 13:26 EDT Tel , Service support ,
== END ==
PROVIDERS: Referring Provider Anesthesiology Pain Medicine; Visit Provider Anesthesiology Pain Medicine
DX: M54.9 Dorsalgia, unspecified (principal); M79.606 Pain in leg, unspecified
CPT/HCPCS: 72148

== ENCOUNTER → 2019-11-21 14:49 | Outpatient (CLI) | payer MEDICAID, SELFPAY ==
[2019-11-21 16:05] LABS: Platelet Count 324 K/mm3 (150-450)
[2019-11-21 16:34] LABS: AST(SGOT) 7 U/L (15-37); Alanine Aminotransfer ALT/SGPT 14 U/L (13-56)
[2019-11-21 17:20] LABS: Valproic Acid (Depakene) Level 95 ug/mL (50-100)
== END ==
PROVIDERS: Referring Provider Psychiatry & Neurology Psychiatry; Visit Provider Psychiatry & Neurology Psychiatry
DX: Z79.899 Other long term (current) drug therapy (principal)
CPT/HCPCS: 36415; 80164; 82140; 84450; 84460; 85049

== ENCOUNTER 2019-12-23 12:06 | Emergency (ER) | payer MEDICAID, SELFPAY ==
[2019-12-23 12:08] VITALS: BP 147/108; PULSE 104; RESP 20; TEMP 36.1; O2SAT 100; BMI 26.4
--- NOTE | 2019-12-23 12:31 | ED.VIS.GEN ---
History of Present Illness Chief Complaint: Nausea/Vomiting Informant: Patient Narrative: Patient is a 49-year-old female who presents to the emergency department for nausea/vomiting, cough, shortness of breath, headache, sore throat and body aches. Her symptoms have been present over the past 4 to 5 days. No known sick contacts. She has not been taking her temperature at home. She currently rates her headache as a 8 out of 10. Not the worst headache of her life. She denies any associated diarrhea. No abdominal pain. No chest pain. She denies any urinary symptoms. No neck stiffness or rashes. No known coronavirus exposures. She denies any recent traveling. Past Medical History - Allergies and Home Meds Allergies/Adverse Reactions: Allergies baclofen Allergy (Verified 12/23/19 12:07) Other seizure tetracycline [Tetracycline] Allergy (Verified 12/23/19 12:07) Other seizure zolpidem tartrate [From Ambien] Allergy (Verified 12/23/19 12:07) Anaphylaxis aspirin Adverse Reaction (Verified 12/23/19 12:07) Other Primary Care Physician: TRISTAN CONTRERAS [Primary Care Provider] - 3-5 Days Prior records reviewed: Yes Surgical History: - - Durga filter placement, appendectomy, exploratory laparotomy secondary to gastric ulcer--unclear specific surgery, lower back surgery, left upper extremity surgery. Smoking Status: Current every day smoker - Family History Maternal Family History: Reports: Cancer Paternal Family History: Reports: Hypertension Review of Systems All systems negative except as indicated General: Reports: Chills, Malaise. Denies: Fever, Sweats Eyes: Denies: Visual changes - bilaterally, Diplopia ENT: Reports: Sore throat. Denies: Rhinorrhea Cardiovascular: Denies: Chest pain, Palpitations Respiratory: Reports: Dyspnea, Cough Gastrointestinal: Reports: Nausea, Vomiting. Denies: Abdominal pain, Diarrhea Genitourinary: Denies: Dysuria, Hematuria, Frequency Musculoskeletal: Reports: Myalgias. Denies: Back pain, Extremity Pain Skin: Denies: Rash, Wounds Neurological: Reports: Headache. Denies: Weakness, Numbness Physical Exam Vital Signs/Narrative: Vital Signs Temp Pulse Resp BP Pulse Ox 12/23/19 12:08 97.0 F L 104 H 20 H 147/108 H 100 Inital Vital Signs reviewed: Yes General: Well nourished, Well developed, No Acute Distress Head: Normocephalic, Atraumatic Eyes: Perrl, EOMI ENT: Moist mucous membranes, No rhinorrhea Neck: Supple, Nontender Cardiovascular: Regular rate, Regular rhythm, No murmurs Respiratory: No distress, CTA bilaterally, Chest nontender Abdomen: Soft, Nontender, Nondistended, Normal bowel sounds Back: Nontender, Normal Inspection Extremities: Nontender, No edema. Negative for: Calf Tenderness Skin: Normal color, No rash Neurological: Alert, Oriented x3, Cranial nerves II-XII grossly intact, Normal Strength, Normal Sensation Psychological: Normal affect, Normal Mood Diagnostic/Tx/Re-eval - Medical Decision Making Patient presents to the emergency department for multiple complaints. This does seem like a viral syndrome given her nausea/vomiting, headache, myalgias, sore throat. Upon arrival to the ED vital signs within normal limits except for a borderline tachycardia. She does not appear in any acute distress. Will check basic lab work and a coronavirus swab. Will treat symptomatically with Tylenol and Zofran. X-ray did not show any evidence of pneumonia. Coronavirus test is pending. Lab work did not reveal any significant acute abnormality. Mildly elevated hemoglobin. She did get IV fluids here. She is feeling better after Tylenol and Zofran. She does have the Zofran at home for continued outpatient treatment. Most likely viral syndrome causing her symptoms. I did discuss return precautions for which to return to the ED. She otherwise is to follow-up with her PCP. She understands and is agreeable this plan. Patient discharged home in stable condition. ED Disposition - Plan for ED Patient: Disposition: Home or Assisted Living Diagnosis: Headache, Cough, Sore throat, Nausea and vomiting Instructions: ED URI Viral, ED Nausea Vomiting Adult Referrals: TRISTAN CONTRERAS [Primary Care Provider] - 3-5 Days
[2019-12-23] MEDS: Acetaminophen 325 MG Tablet 650 MG PO (12:51)
[2019-12-23] MEDS: Ondansetron 4 MG/2 ML Vial IV (12:52)
[2019-12-23 13:10] VITALS: BP 129/67; PULSE 89; RESP 17; TEMP 36.6; O2SAT 98
[2019-12-23 13:29] VITALS: BP 124/83; PULSE 89; RESP 19; O2SAT 97
[2019-12-23 13:30] LABS: Absolute Lymphocyte Count 1.93 X10^3/uL (0.83-4.51); Basophil# 0.04 X10^3/uL; Basophil% 0.4 % (0-1); Eosinophil# 0.02 X10^3/uL; Eosinophils% 0.2 % (0-5); Hematocrit 50.2 % (37-47); Hemoglobin 16.2 g/dL (12.0-15.0); Lymphocyte # 1.93 X10^3/ul (4.0); Lymphocyte % 18.2 % (19-41); Mean Corp Hgb Conc 32.3 g/dL (32-36); Mean Corpuscular Hgb 30.8 pg (27.0-32.0); Mean Corpuscular Volume 95.4 fL (81-99); Mean Platelet Vol. 10.3 fl (6.2-12.0); Monocyte# 0.64 X10^3/uL; NRBC Flagged by Analyzer 0 % (0-5); Neutrophil # 7.98 X10^3/uL (2.7-7.7); Platelet Count 245 K/mm3 (150-450); RBC Distribution Width CV 13.3 % (11.6-14.6); RBC Distribution Width SD 47.2 fl (35.1-43.9); Red Blood Count 5.26 M/mm3 (4.2-5.4); White Blood Count 10.6 K/mm3 (4.4-11.0)
--- NOTE | 2019-12-23 13:30 | RAD_ITS ---
STUDY: X-RAY CHEST REASON FOR EXAM: Female, 49 years old. N/V, CLARK, SOB, WEAKNESS, AND SORE THROAT SINCE THURSDAY. HX MT AND HTN TECHNIQUE: Single AP portable view of the chest. COMPARISON: Comparison is made with prior examination dated 03/27/2018. FINDINGS: EKG electrodes are seen. Hyperinflation. The lungs are clear. There is no demonstrated pleural abnormality. Normal size heart. Normal mediastinum and maria r. Normal visualized pulmonary arteries. Normal visualized aortic arch and descending thoracic aorta. There are degenerative changes of the visualized thoracic spine. Normal visualized ribs, clavicles, and shoulders. There is no demonstrated abnormality of the visualized soft tissue structures of the upper abdomen. RAD/Chest 1 View (Portable) IMPRESSION: Hyperinflation. The lungs are clear. Electronically Signed: Scott Mauro, at 14:19 EDT , Service support ,
[2019-12-23] MEDS: 0.9% Normal Saline 1,000 ML 999 ML IV (13:44)
[2019-12-23 13:49] LABS: ALB/GLOB Ratio 1.2 RATIO (0.9-2.4); AST(SGOT) 28 U/L (15-37); Alanine Aminotransfer ALT/SGPT 31 U/L (13-56); Albumin, Serum 4.4 g/dL (3.2-5.0); Alkaline Phosphatase 122 U/L (45-117); Anion Gap 10 (5-15); BUN 19 mg/dL (7-18); BUN/Creat Ratio 27.4 RATIO (10-20); Calcium,Total 9.9 mg/dL (8.5-10.1); Chloride 105 mmol/L (98-107); Creatinine, Serum 0.69 mg/dL (0.55-1.02); EST Glomerular Filtration Rate 96 mL/min (>60); Est Glom Filt Rate - Afr Amer 117 mL/min (>60); Estimated Creatinine Clearance 87.04 ml/min; Globulin 3.7 g/dL (2.2-4.2); Glucose 77 mg/dL (74-106); Potassium 3.6 mmol/L (3.5-5.1); Protein, Total 8.1 g/dL (6.4-8.2); Sodium Level 137 mmol/L (136-145)
[2019-12-23 15:00] VITALS: BP 123/68; PULSE 78; RESP 16; O2SAT 98
== END 2019-12-23 15:02 | disposition home or self-care (01) ==
PROVIDERS: Emergency Provider Emergency Medicine
DX: R11.2 Nausea with vomiting, unspecified (principal); R51 Headache; R05 Cough; J02.9 Acute pharyngitis, unspecified; F17.200 Nicotine dependence, unspecified, uncomplicated; I25.2 Old myocardial infarction; Z82.49 Family history of ischemic heart disease and other diseases of the circulatory system; Z88.1 Allergy status to other antibiotic agents; Z88.6 Allergy status to analgesic agent; Z88.8 Allergy status to other drugs, medicaments and biological substances
CPT/HCPCS: 71045; 80053; 85025; 87040; 87635; 96361; 96374; 99285; J7030; A4216; J2405; U0003

== ENCOUNTER 2020-09-25 10:03 | Emergency (ER) | payer MEDICAID, SELFPAY ==
[2020-09-25 10:04] VITALS: BP 138/92; PULSE 83; RESP 18; TEMP 36.4; O2SAT 99; BMI 21.1
--- NOTE | 2020-09-25 10:35 | RAD_ITS ---
STUDY: X-RAY - THORACIC SPINE REASON FOR EXAM: Female, 49 years old. Fall TECHNIQUE: 2 view(s) of the thoracic spine were obtained. COMPARISON: None. FINDINGS: Normal kyphosis of the thoracic spine. There is no substantial scoliosis. Normal thoracic vertebrae and endplates. There is multilevel disc space narrowing of the thoracic spine. The soft tissue structures are unremarkable. RAD/Thoracic Spine 3 Views IMPRESSION: Mild degree of diffuse disc space narrowing. Electronically Signed: Scott Mauro MD at 10:58 EDT , Service support ,
--- NOTE | 2020-09-25 10:35 | RAD_ITS ---
STUDY: X-RAY - BILATERAL RIBS WITH CHEST REASON FOR EXAM: Female, 49 years old. Posterior rib pain following a fall. TECHNIQUE - RIBS: 5 view(s) of the ribs. TECHNIQUE - CHEST: Single PA view of the chest. COMPARISON: Comparison is made with prior chest radiograph dated 12/23/2019. FINDINGS - RIBS : Normal visualized ribs without a demonstrated fracture. FINDINGS - CHEST: There is hyperinflation of the lungs consistent with chronic obstructive lung disease (COPD). There is no demonstrated pleural abnormality. Normal size heart. Normal mediastinum and maria r. Normal visualized pulmonary arteries. Normal visualized aortic arch and descending thoracic aorta. Normal visualized thoracic spine. Normal visualized ribs, clavicles, and shoulders. IVC filter is seen. RAD/Ribs Umair Min 4V w/PA Chest IMPRESSION: RIBS: Normal x-ray examination of the bilateral ribs. CHEST: Hyperinflation. Electronically Signed: Scott Mauro MD at 10:58 EDT , Service support ,
--- NOTE | 2020-09-25 11:06 | ED.VIS.BACK ---
HPI History of Present Illness Chief Complaint: Back Narrative Narrative: Patient presenting for evaluation secondary to back pain. Patient last week suffered a mechanical fall. States that she tripped over one of her granddaughters toys and fell on her back. Patient states that throughout the course of the weekend she continued to have back pain. Since her thoracic back, there is no radiation down the legs. No bowel or bladder incontinence. No fevers chills night sweats unintended weight loss recent surgeries or injections or history of IV drug abuse. Patient states she has been taking Tylenol and Aleve at home with minimal to no relief. Review of systems otherwise negative. [facility] Medical History (Updated 09/25/20 @ 11:[address] En Evans MD) Accidental overdose Anxiety and depression Bipolar disorder Chest pain Chronic back pain Coronary artery vasospasm Essential (primary) hypertension History of deep venous thrombosis History of non-ST elevation myocardial infarction (NSTEMI) (10/2012) History of pulmonary embolism (~2008) Hyperlipidemia Nicotine dependence Nonrheumatic mitral (valve) prolapse Overweight (BMI 25.0-29.9) Peptic ulcer with perforation Restless leg syndrome Seizures Home Medications ropinirole 2 mg PO QHS 02/16/13 [History Last Taken 09/03/16] lovastatin 40 mg PO DAILY 12/10/14 [History Last Taken 09/03/16] venlafaxine 150 mg PO DAILY 12/12/14 [History Last Taken 09/03/16] quetiapine 600 mg PO QHS 04/08/16 [History Last Taken 09/03/16] ranitidine HCl 150 mg PO BID 09/01/16 [History Last Taken 09/03/16] albuterol sulfate 1 - 2 puff INHALATION Q4H PRN PRN 08/13/17 [History Last Taken Unknown] amlodipine 5 mg tablet 5 mg PO DAILY #90 tab 02/15/19 [Rx Last Taken Unknown] carvedilol 3.125 mg tablet 3.125 mg PO BID 02/15/19 [History Last Taken Unknown] gabapentin 300 mg capsule 300 mg PO TID 02/15/19 [History Last Taken Unknown] gabapentin 600 mg tablet 600 mg PO TID tab 02/15/19 [History Last Taken Unknown] divalproex 500 mg PO TID 12/23/19 [History Last Taken Unknown] hydrocodone-acetaminophen 1 ea PO Q6H PRN PRN 12/23/19 [History Last Taken Unknown] lidocaine [Lidoderm] 1 patch TOPICAL DAILY #1 ea 09/25/20 [Rx Last Taken Unknown] Allergy/AdvReac Type Severity Reaction Status Date / Time baclofen Allergy Other Verified 09/25/20 10:04 tetracycline [Tetracycline] Allergy Other Verified 09/25/20 10:04 zolpidem tartrate Allergy Anaphylaxis Verified 09/25/20 10:04 [From Ambien] aspirin AdvReac Other Verified 09/25/20 10:04 Surgical History History of back surgery history of IVC filter (~2008) History of left heart catheterization (11/25/12) Social History Smoking Status: Current every day smoker caffeine: Yes Type: coffee Number of servings: 6 ROS ROS ED Constitutional Constitutional ED: Reports other Details: Denies recent surgeries, or injections ; Denies chills, fever(s), sweats or weight loss Cardiovascular Cardiovascular: Denies chest pain Respiratory/Chest Respiratory/Chest: Denies dyspnea Gastrointestinal Gastrointestinal: Reports other Details: Denies Bowel Incontinence ; Denies abdominal pain Genitourinary Genitourinary ED: Reports other Details: Denies Bladder Incontinence Musculoskeletal Musculoskeletal: Reports back pain Integumentary Reports other Details: No Petechiae ; Denies rash Neurologic Neurologic: Reports other Details: Denies Numbness, or Weakness Psychiatric Psychiatric: Reports other Details: Denies history of IV Drug abuse Hematologic/Lymphatic Hematologic/Lymphatic: Denies lymphadenopathy EXAM Physical Exam Const Vital Signs: 09/25/20 10:04 Temperature 97.5 F L Temperature Source Temporal Pulse Rate 83 Respiratory Rate 18 Blood Pressure 138/92 H Blood Pressure Mean 107 Pulse Ox 99 Oxygen Delivery Method Room Air Positive well nourished and well developed General Appearance ED: well developed and NAD HEENT Reports normocephalic and head/scalp atraumatic Eyes EOMs intact bilaterally Neck supple Resp normal respiratory effort and clear to auscultation bilaterally Cardio regular rate, regular rhythm and no murmurs Bruits: other Other Details: 2+ Radial Pulses 2+ DP Pulses 2+ PT Pulses Peripheral Pulses: radial pulses present, posterior tibial pulses present and dorsalis pedis pulses present GI normal to inspection, nondistended, normoactive bowel sounds, soft to palpation and non-tender Palpation: Negative for pulsatile mass Back/Spine normal to inspection Back/Spine Narrative: Patient has tenderness over her bilateral ribs and lower thoracic spine with no evidence of step-offs or deformities Thoracic Spine / Upper Back: Negative for thoracic spinal tenderness Lumbar Spine / Lower Back: straight leg raise negative bilaterally; Negative for lumbar spinal tenderness Extremity normal to inspection Neuro oriented x3 and no sensory deficits noted Neuro Narrative: Motor: Hip flexion Knee flexion Knee extension Dorsiflexion Plantar Flexion Extensor Hallicus longus Sensorium / Orientation: alert Sensory Exam: other Motor Exam: strength 5/5 throughout Deep Tendon Reflexes: Rt Patellar (L4): 2+, Lt Patellar (L4): 2+, Rt Ankle (S1): 2+ and Lt Ankle (S1): 2+ Deep Tendon Reflexes Back: Rt Patellar (L4): 2+, Lt Patellar (L4): 2+, Rt Ankle (S1): 2+ and Lt Ankle (S1): 2+ Plantar Reflex: Other: bilateral (No pathologic clonus) Psych mental status grossly normal Skin no rashes or lesions noted Trauma: other No petechiae MDM MDM MDM Narrative Medical decision making narrative: Patient presented secondary to back pain. Radiographs of the bilateral ribs and thoracic spine by my personal review as well as radiology demonstrate no evidence of acute fracture. Patient pain was treated with a lidocaine patch. Patient at this point does not have any signs of neurologic compromise, I do not believe that she requires further work-up or further imaging or admission. Patient be discharged with a course of lidocaine patches, continued use of of [id number] analgesics. Patient was discharged in stable condition. Radiography Diagnostic Testing: Radiology Impression Ribs w/Chest X-Ray 09/25/20 10:35 IMPRESSION: RIBS: Normal x-ray examination of the bilateral ribs. CHEST: Hyperinflation. Electronically Signed: Scott Mauro MD at 10:58 EDT , Service support , Thoracic Spine X-Ray 09/25/20 10:35 IMPRESSION: Mild degree of diffuse disc space narrowing. Electronically Signed: Scott Mauro MD at 10:58 EDT , Service support , Discharge Plan Triage Chief Complaint: Back ED Provider: En Evans Dx/Rx/DC Orders Clinical Impression: Contusion of thoracic wall Instructions: ED Back Contusion Prescriptions: New lidocaine [Lidoderm] 5 % adhesive patch,medicated 1 patch topical DAILY Qty: 1 RF: 0 No Action gabapentin 300 mg capsule 300 mg PO TID RF: 0 carvedilol 3.125 mg tablet 3.125 mg PO BID RF: 0 amlodipine 5 mg tablet 5 mg PO DAILY Qty: 90 RF: 6 ropinirole 0.5 MG tablet 2 mg PO QHS RF: 0 lovastatin 40 MG tablet 40 mg PO DAILY RF: 0 venlafaxine 150 MG capsule 150 mg PO DAILY RF: 0 gabapentin 600 mg tablet 600 mg PO TID RF: 0 quetiapine 400 MG tablet 600 mg PO QHS RF: 0 ranitidine HCl 150 MG tablet 150 mg PO BID RF: 0 albuterol sulfate 1 INHALER inhaler 1 - 2 puff inhalation Q4H PRN PRN (Reason: Wheezing) RF: 0 hydrocodone-acetaminophen 1 EACH tablet 1 ea PO Q6H PRN PRN (Reason: Pain Score 1-10/10) RF: 0 divalproex 500 MG tablet,delayed release (DR/EC) 500 mg PO TID RF: 0 Primary Care Provider: TRISTAN CONTRERAS Referrals: TRISTAN CONTRERAS [Primary Care Provider] - As Needed Disposition Disposition: Home, Self Care
[2020-09-25] MEDS: Lidocaine 5% Patch 1 PATCH TOPICAL (11:14)
== END 2020-09-25 11:16 | disposition home or self-care (01) ==
PROVIDERS: Emergency Provider Emergency Medicine
DX: S20.223A Contusion of bilateral back wall of thorax, initial encounter (principal); W18.09XA Striking against other object with subsequent fall, initial encounter; Y93.9 Activity, unspecified; Y92.89 Other specified places as the place of occurrence of the external cause; Y99.9 Unspecified external cause status; F31.9 Bipolar disorder, unspecified; I10 Essential (primary) hypertension; I25.2 Old myocardial infarction; E78.5 Hyperlipidemia, unspecified; I34.1 Nonrheumatic mitral (valve) prolapse; F17.200 Nicotine dependence, unspecified, uncomplicated; Z86.718 Personal history of other venous thrombosis and embolism
CPT/HCPCS: 71111; 72072; 99281; 99282

== ENCOUNTER 2020-11-04 04:52 | Emergency (ER) | payer MEDICAID, SELFPAY ==
[2020-11-04 04:59] VITALS: BP 145/87; PULSE 75; RESP 16; TEMP 36.5; O2SAT 100; BMI 25.7
--- NOTE | 2020-11-04 05:21 | RAD_ITS ---
STUDY: X-RAY CHEST REASON FOR EXAM: Female, 49 years old. cough TECHNIQUE: PA and lateral views of the chest. COMPARISON: 09/25/2020 FINDINGS: The lungs are clear and expanded. There is no demonstrated pleural abnormality. Normal size heart. Normal mediastinum and maria r. Normal visualized pulmonary arteries. Normal visualized aortic arch and descending thoracic aorta. Normal visualized thoracic spine. Normal visualized ribs, clavicles, and shoulders. There is no demonstrated abnormality of the visualized soft tissue structures of the upper abdomen. RAD/Chest PA and Lateral IMPRESSION: Normal x-ray examination of the chest. Electronically Signed: Srinath Jackson MD at 6:50 EDT Tel , Service support ,
--- NOTE | 2020-11-04 05:44 | EDS_ITS ---
HPI History of Present Illness Chief Complaint: General Illness Informant: patient Narrative Narrative: Patient has several complaints today. She does state that she has had some sneezing mild sore throat and slight cough for about 2 weeks. No sputum production. No facial pain. No fevers or chills. No hemoptysis. No wheezing. She states the main reason she is here is she has some tingling in her left ring and small finger. It radiates up her arm and even into her armpit and then back of her neck. It sore in the back left of her neck near the trapezius. She has been doing a lot of lifting and moving boxes because she is moving. She also has a history of having this. She actually had surgery for removing the ulnar nerve many years ago. She gets intermittent tingling and pain in her arm in the same area. She is not having chest pain. She has no new trauma. She has just been more active recently. [facility] Medical History (Updated 11/04/20 @ 06:[address] Wilbert Jackson MD) Accidental overdose Anxiety and depression Bipolar disorder Chest pain Chronic back pain Coronary artery vasospasm Essential (primary) hypertension History of deep venous thrombosis History of non-ST elevation myocardial infarction (NSTEMI) (10/2012) History of pulmonary embolism (~2008) Hyperlipidemia Nicotine dependence Nonrheumatic mitral (valve) prolapse Overweight (BMI 25.0-29.9) Peptic ulcer with perforation Restless leg syndrome Seizures Home Medications ropinirole 2 mg PO QHS 02/16/13 [History Last Taken 09/03/16] lovastatin 40 mg PO DAILY 12/10/14 [History Last Taken 09/03/16] venlafaxine 150 mg PO DAILY 12/12/14 [History Last Taken 09/03/16] quetiapine 600 mg PO QHS 04/08/16 [History Last Taken 09/03/16] ranitidine HCl 150 mg PO BID 09/01/16 [History Last Taken 09/03/16] albuterol sulfate 1 - 2 puff INHALATION Q4H PRN PRN 08/13/17 [History Last Taken Unknown] amlodipine 5 mg tablet 5 mg PO DAILY #90 tab 02/15/19 [Rx Last Taken Unknown] carvedilol 3.125 mg tablet 3.125 mg PO BID 02/15/19 [History Last Taken Unknown] gabapentin 600 mg tablet 800 mg PO TID tab 02/15/19 [History Last Taken Unknown] divalproex 500 mg PO TID 12/23/19 [History Last Taken Unknown] cyclobenzaprine 10 mg PO BID PRN #15 tab 11/04/20 [Rx Last Taken Unknown] hydroxyzine HCl 25 mg PO Q8H PRN PRN 11/04/20 [History Last Taken Unknown] prednisone 60 mg PO DAILY #15 tab 11/04/20 [Rx Last Taken Unknown] Allergy/AdvReac Type Severity Reaction Status Date / Time baclofen Allergy Other Verified 11/04/20 04:54 tetracycline [Tetracycline] Allergy Other Verified 11/04/20 04:54 zolpidem tartrate Allergy Anaphylaxis Verified 11/04/20 04:54 [From Ambien] aspirin AdvReac Other Verified 11/04/20 04:54 Surgical History History of back surgery history of IVC filter (~2008) History of left heart catheterization (11/25/12) Social History Smoking Status: Current every day smoker tobacco type: cigarettes caffeine: Yes Type: coffee Number of servings: 6 ROS ROS ED Constitutional Constitutional ED: Denies chills, fever(s) or sweats Eyes Eyes: Denies blurry vision ENT ENT ED: Reports rhinorrhea, sore throat and other Details: See history of present illness. Cardiovascular Cardiovascular: Denies chest pain or palpitations Respiratory/Chest Respiratory/Chest: Reports cough; Denies dyspnea, dyspnea on exertion or sputum Gastrointestinal Gastrointestinal: Denies abdominal pain, nausea or vomiting Genitourinary Genitourinary ED: Denies dysuria or hematuria Musculoskeletal Musculoskeletal: Reports neck pain; Denies arthralgias, back pain or myalgias Integumentary Denies rash Neurologic Neurologic: Reports paresthesias; Denies headache(s) or weakness Endocrine Endocrinology: Denies polydipsia or polyuria EXAM Physical Exam Const Vital Signs: 11/04/20 04:59 11/04/20 05:03 11/04/20 06:33 Temperature 97.7 F L Temperature Source Oral Pulse Rate 75 65 Respiratory Rate 16 15 Respiratory Effort Normal Respiratory Pattern Normal Blood Pressure 145/87 H 147/86 H Blood Pressure Mean 106 106 Pulse Ox 100 99 Oxygen Delivery Method Room Air Room Air Positive well nourished and well developed General Appearance ED: well developed and NAD HEENT Reports moist mucous membranes HEENT Narrative: Posterior pharynx is minimally red if at all. No exudate. No asymmetry. No hot potato voice or difficulty handling secretions. Negative for trauma or tenderness Eyes PERRL and EOMs intact bilaterally Neck supple Neck Narrative: No lymphadenopathy or JVD. No meningismus. She does have some tenderness to the muscular at the trapezius of the far base of her neck on the left. Chest Wall inspection of chest normal Resp normal respiratory effort and clear to auscultation bilaterally Cardio regular rate and regular rhythm GI normal to inspection, nondistended, normoactive bowel sounds and non-tender Palpation: soft Back/Spine no CVA tenderness Extremity normal to inspection Extremity Narrative: She does have signs of prior surgical scar at left elbow. She still has some tenderness with palpation in that area. Her work adjustment instructor strength bicep tricep strength is all quite normal. Neuro Neuro Narrative: No neurologic deficit. However, where she states she has the tingling does match peripheral ulnar nerve distribution. Psych mental status grossly normal Skin no rashes or lesions noted MDM MDM MDM Narrative Medical decision making narrative: 2 view chest x-ray looked at by me shows changes consistent with COPD but I do not see any acute infiltrate. She has more markings at the bases but I think this is due to breast tissue and relative density. Patient has symptoms of radicular pain as well as an ongoing cough and congestion after 2 weeks. She has a history of asthma. She is not wheezing significantly. However, her congestion and cough still could be bronchospasm. Prednisone would likely help this. We may be able to get some benefit for her radiculopathy with a short course of steroids. She cannot take nonsteroidals. We will use a brief course of prednisone and some Flexeril for discomfort. Discharge Plan Triage Chief Complaint: General Illness ED Provider: Wilbert Jackson Dx/Rx/DC Orders Clinical Impression: Cough, Cervical radiculopathy Instructions: ED Neck Pain, ED URI, Viral, No Abx (Adult) Prescriptions: New prednisone 20 mg tablet 60 mg PO DAILY Qty: 15 RF: 0 cyclobenzaprine 10 mg tablet 10 mg PO BID PRN (Reason: muscle spasm) Qty: 15 RF: 0 No Action carvedilol 3.125 mg tablet 3.125 mg PO BID RF: 0 amlodipine 5 mg tablet 5 mg PO DAILY Qty: 90 RF: 6 ropinirole 0.5 MG tablet 2 mg PO QHS RF: 0 lovastatin 40 MG tablet 40 mg PO DAILY RF: 0 venlafaxine 150 MG capsule 150 mg PO DAILY RF: 0 gabapentin 600 mg tablet 800 mg PO TID RF: 0 quetiapine 400 MG tablet 600 mg PO QHS RF: 0 ranitidine HCl 150 MG tablet 150 mg PO BID RF: 0 albuterol sulfate 1 INHALER inhaler 1 - 2 puff inhalation Q4H PRN PRN (Reason: Wheezing) RF: 0 divalproex 500 MG tablet,delayed release (DR/EC) 500 mg PO TID RF: 0 hydroxyzine HCl 25 mg tablet 25 mg PO Q8H PRN PRN (Reason: Anxiety) RF: 0 Primary Care Provider: Lupe Fuentes Referrals: Lupe Fuentes MD [Primary Care Provider] - 3-5 Days if not improving Disposition Disposition: Home, Self Care
[2020-11-04 06:33] VITALS: BP 147/86; PULSE 65; RESP 15; O2SAT 99
[2020-11-04 07:00] VITALS: BP 147/86; PULSE 65; RESP 15; O2SAT 97
== END 2020-11-04 07:09 | disposition home or self-care (01) ==
PROVIDERS: Emergency Provider Emergency Medicine; PCP Student in an Organized Health Care Education/Training Program
DX: M54.12 Radiculopathy, cervical region (principal); R05 Cough; F17.210 Nicotine dependence, cigarettes, uncomplicated; E78.5 Hyperlipidemia, unspecified; F31.9 Bipolar disorder, unspecified; F41.9 Anxiety disorder, unspecified; G89.29 Other chronic pain; I10 Essential (primary) hypertension; I25.2 Old myocardial infarction; Z79.52 Long term (current) use of systemic steroids; Z79.82 Long term (current) use of aspirin; Z79.899 Other long term (current) drug therapy; Z86.711 Personal history of pulmonary embolism; Z86.718 Personal history of other venous thrombosis and embolism; I34.1 Nonrheumatic mitral (valve) prolapse
CPT/HCPCS: 71046; 99282

== ENCOUNTER 2020-11-13 09:50 | Emergency (ER) | payer MEDICAID, SELFPAY ==
[2020-11-13 09:51] VITALS: BP 126/93; PULSE 95; RESP 19; TEMP 36.6; O2SAT 100; BMI 21.6
[2020-11-13 09:53] VITALS: BP 126/93; PULSE 95; RESP 19; TEMP 36.6; O2SAT 100
--- NOTE | 2020-11-13 10:08 | RAD_ITS ---
STUDY: X-RAY CHEST REASON FOR EXAM: Female, 49 years old. Cough TECHNIQUE: Single AP portable view of the chest. COMPARISON: Comparison is made with prior study 11/04/2020. FINDINGS: EKG electrodes are seen. There is hyperinflation of the lungs consistent with chronic obstructive lung disease (COPD). There is no demonstrated pleural abnormality. Normal size heart. Normal mediastinum and maria r. There is prominence of the pulmonary hilar arteries without peripheral pulmonary vascular congestion, suggesting pulmonary hypertension. Normal visualized aortic arch and descending thoracic aorta. There are diffuse degenerative changes of the visualized thoracic spine. Normal visualized ribs, clavicles, and shoulders. A filter is seen within the inferior vena cava. RAD/Chest 1 View (Portable) IMPRESSION: Hyperinflation. Prominence of the central pulmonary arteries. Electronically Signed: Scott Mauro MD at 11:58 EDT , Service support ,
--- NOTE | 2020-11-13 10:09 | EDS_ITS ---
HPI HPI - URI History of Present Illness Chief Complaint: Cough Informant: patient Onset/Context/Timing Onset: Weeks (1) Context: Gradual Onset Timing: Continuous Quality: Sharp Location: Left lower chest Worsened by: - (Coughing, sneezing, movement) Associated Symptoms Associated Symptoms: Positive for Nasal Congestion, Headache, Nausea, Vomiting, Chest Pain and Productive Cough; Negative for Sinus Pressure, Myalgias, Diarrhea, Shortness of Breath and Hemoptysis Narrative Narrative: Patient presents with cough that has been getting worse over the past week. Patient states she is coughing up some yellow sputum. Patient admits to subjective chills at home but denies any fevers. Patient did not take her temperature at home. Patient also admits to some rhinorrhea and sore throat. Patient also admits to pain in her left lower chest that is worse with coughing, sneezing, and certain movements. Patient admits to nausea and vomiting but denies any diarrhea. Patient denies any shortness of breath. Patient also admits to a headache. Patient has not had her COVID-19 vaccine. ROS ROS ED Constitutional Constitutional ED: Reports chills and subjective; Denies fever(s) Eyes Eyes: Denies blurry vision or change in vision ENT ENT ED: Reports rhinorrhea and sore throat Cardiovascular Cardiovascular: Reports chest pain; Denies palpitations Respiratory/Chest Respiratory/Chest: Reports cough and sputum; Denies dyspnea Gastrointestinal Gastrointestinal: Denies nausea or vomiting Genitourinary Genitourinary ED: Denies dysuria or hematuria Musculoskeletal Musculoskeletal: Reports back pain; Denies neck pain Integumentary Denies abscess or rash Neurologic Neurologic: Reports headache(s); Denies weakness Allergic/Immunologic Allergic/Immunologic ED: Denies mouth swelling or urticaria [facility] Medical History (Updated 11/13/20 @ 11:[address] Ap Paul, DO) Accidental overdose Anxiety and depression Bipolar disorder Chest pain Chronic back pain Coronary artery vasospasm Essential (primary) hypertension History of deep venous thrombosis History of non-ST elevation myocardial infarction (NSTEMI) (10/2012) History of pulmonary embolism (~2008) Hyperlipidemia Nicotine dependence Nonrheumatic mitral (valve) prolapse Overweight (BMI 25.0-29.9) Peptic ulcer with perforation Restless leg syndrome Seizures Home Medications ropinirole 2 mg PO QHS 02/16/13 [History Last Taken 09/03/16] lovastatin 40 mg PO DAILY 12/10/14 [History Last Taken 09/03/16] venlafaxine 150 mg PO DAILY 12/12/14 [History Last Taken 09/03/16] quetiapine 600 mg PO QHS 04/08/16 [History Last Taken 09/03/16] ranitidine HCl 150 mg PO BID 09/01/16 [History Last Taken 09/03/16] albuterol sulfate 1 - 2 puff INHALATION Q4H PRN PRN 08/13/17 [History Last Taken Unknown] amlodipine 5 mg tablet 5 mg PO DAILY #90 tab 02/15/19 [Rx Last Taken Unknown] carvedilol 3.125 mg tablet 3.125 mg PO BID 02/15/19 [History Last Taken Unknown] gabapentin 600 mg tablet 800 mg PO TID tab 02/15/19 [History Last Taken Unknown] divalproex 500 mg PO TID 12/23/19 [History Last Taken Unknown] cyclobenzaprine 10 mg PO BID PRN #15 tab 11/04/20 [Rx Last Taken Unknown] hydroxyzine HCl 25 mg PO Q8H PRN PRN 11/04/20 [History Last Taken Unknown] prednisone 60 mg PO DAILY #15 tab 11/04/20 [Rx Last Taken Unknown] Allergy/AdvReac Type Severity Reaction Status Date / Time baclofen Allergy Other Verified 11/13/20 09:54 tetracycline [Tetracycline] Allergy Other Verified 11/13/20 09:54 zolpidem tartrate Allergy Anaphylaxis Verified 11/13/20 09:54 [From Ambien] aspirin AdvReac Other Verified 11/13/20 09:54 Surgical History History of back surgery history of IVC filter (~2008) History of left heart catheterization (11/25/12) Social History Smoking Status: Current every day smoker tobacco type: cigarettes caffeine: Yes Type: coffee Number of servings: 6 EXAM Physical Exam Const Vital Signs: 11/13/20 09:51 11/13/20 09:53 11/13/20 09:56 Temperature 97.8 F 97.8 F Temperature Source Temporal Temporal Pulse Rate 95 95 Respiratory Rate 19 H 19 H Respiratory Effort Normal Non-Labored Blood Pressure 126/93 H 126/93 H Blood Pressure Mean 104 104 Pulse Ox 100 100 Oxygen Delivery Method Room Air Room Air Room Air 11/13/20 10:53 Temperature 97.9 F Temperature Source Temporal Pulse Rate 90 Respiratory Rate 23 H Respiratory Effort Blood Pressure 140/98 H Blood Pressure Mean 112 Pulse Ox 98 Oxygen Delivery Method Room Air Positive well nourished and well developed General Appearance ED: well developed HEENT Reports moist mucous membranes normocephalic Neck supple and no JVD Resp normal respiratory effort Auscultation: diminished lung sounds diffuse Cardio Rate: regular rate Rhythm: regular rhythm GI non-tender and non-distended Auscultation: normoactive bowel sounds Palpation: soft Extremity normal to inspection and full ROM Neuro oriented x3, CN's II-XII intact bilaterally and no sensory deficits noted Sensorium / Orientation: alert Motor Exam: strength 5/5 throughout Psych mental status grossly normal MDM MDM MDM Narrative Medical decision making narrative: Patient was given albuterol inhaler here. COVID-19 rapid antigen was obtained and was negative. CBC was within normal limits. Comprehensive metabolic profile was essentially within normal limits. Portable 1 view chest x-ray was obtained. On my interpretation, lung abreu are clear. There is normal cardiac silhouette. Bony thorax is normal. There is no acute process noted. Radiologist also interpreted the x-ray and agrees. Patient was advised of her findings. Patient was instructed to continue her inhaler as needed. Patient was instructed to drink plenty of fluids. Patient was instructed to follow-up with her primary care physician in 5 to 7 days. Patient understood and was agreeable with the plan. All questions were answered. Lab Data Attestation: I reviewed the patient's lab results. Labs: Laboratory Results - last 24 hr 11/13/20 11/13/20 10:20 10:20 WBC 5.8 RBC 4.88 Hgb 14.7 Hct 45.7 MCV 93.6 MCH 30.1 MCHC 32.2 RDW Std Deviation 46.7 H RDW Coeff of Tavo 13.6 Plt Count 346 MPV 9.8 Immature Gran % (Auto) 0.200 Neut % (Auto) 57.4 Lymph % (Auto) 28.6 Bryan % (Auto) 11.4 H Eos % (Auto) 1.5 Baso % (Auto) 0.9 Absolute Neuts (auto) 3.3 Absolute Lymphs (auto) 1.66 Nucleated RBC % 0 Sodium 138 Potassium 4.4 Chloride 105 Carbon Dioxide 30.0 Anion Gap 3 L BUN 8 Creatinine 0.53 L Estim Creat Clear Calc 113.31 Est GFR (MDRD) Af Amer 160 Est GFR (MDRD) Non-Af 132 BUN/Creatinine Ratio 15.2 Glucose 92 Calcium 9.7 Total Bilirubin 0.40 AST 27 ALT 21 Alkaline Phosphatase 123 H Total Protein 7.6 Albumin 3.9 Globulin 3.7 Albumin/Globulin Ratio 1.1 Radiography Chest X-Ray - ED: 1 View, Read by ED Physician, Read by Radiologist and Normal Discharge Plan Triage Chief Complaint: Cough ED Provider: Ap Paul Dx/Rx/DC Orders Clinical Impression: Upper respiratory infection, viral Prescriptions: No Action carvedilol 3.125 mg tablet 3.125 mg PO BID RF: 0 amlodipine 5 mg tablet 5 mg PO DAILY Qty: 90 RF: 6 ropinirole 0.5 MG tablet 2 mg PO QHS RF: 0 lovastatin 40 MG tablet 40 mg PO DAILY RF: 0 venlafaxine 150 MG capsule 150 mg PO DAILY RF: 0 gabapentin 600 mg tablet 800 mg PO TID RF: 0 quetiapine 400 MG tablet 600 mg PO QHS RF: 0 ranitidine HCl 150 MG tablet 150 mg PO BID RF: 0 albuterol sulfate 1 INHALER inhaler 1 - 2 puff inhalation Q4H PRN PRN (Reason: Wheezing) RF: 0 divalproex 500 MG tablet,delayed release (DR/EC) 500 mg PO TID RF: 0 hydroxyzine HCl 25 mg tablet 25 mg PO Q8H PRN PRN (Reason: Anxiety) RF: 0 prednisone 20 mg tablet 60 mg PO DAILY Qty: 15 RF: 0 cyclobenzaprine 10 mg tablet 10 mg PO BID PRN (Reason: muscle spasm) Qty: 15 RF: 0 Primary Care Provider: Lupe Fuentes Referrals: Lupe Fuentes MD [Primary Care Provider] - 3-5 Days Disposition Disposition: Home, Self Care
[2020-11-13 10:30] LABS: Absolute Lymphocyte Count 1.66 X10^3/uL (0.83-4.51); Absolute Neutrophil Count 3.3 X10^3/uL (2.0-7.7); Basophil# 0.05 X10^3/uL; Basophil% 0.9 % (0-1); Eosinophil# 0.09 X10^3/uL; Eosinophils% 1.5 % (0-5); Hematocrit 45.7 % (37-47); Hemoglobin 14.7 g/dL (12.0-15.0); Lymphocyte # 1.66 X10^3/ul (0.83-4.51); Lymphocyte % 28.6 % (19-41); Mean Corp Hgb Conc 32.2 g/dL (32-36); Mean Corpuscular Hgb 30.1 pg (27.0-32.0); Mean Corpuscular Volume 93.6 fL (81-99); Mean Platelet Vol. 9.8 fl (6.2-12.0); Monocyte# 0.66 X10^3/uL; Monocyte% 11.4 % (0-10); NRBC Flagged by Analyzer 0 % (0-5); Neutrophil # 3.34 X10^3/uL (2.7-7.7); Neutrophil % 57.4 % (47-70); Platelet Count 346 K/mm3 (150-450); RBC Distribution Width CV 13.6 % (11.6-14.6); RBC Distribution Width SD 46.7 fl (35.1-43.9); Red Blood Count 4.88 M/mm3 (4.2-5.4); White Blood Count 5.8 K/mm3 (4.4-11.0)
[2020-11-13 10:48] LABS: ALB/GLOB Ratio 1.1 RATIO (0.9-2.4); AST(SGOT) 27 U/L (15-37); Alanine Aminotransfer ALT/SGPT 21 U/L (13-56); Albumin, Serum 3.9 g/dL (3.2-5.0); Alkaline Phosphatase 123 U/L (45-117); Anion Gap 3 (5-15); BUN 8 mg/dL (7-18); BUN/Creat Ratio 15.2 RATIO (10-20); Calcium,Total 9.7 mg/dL (8.5-10.1); Chloride 105 mmol/L (98-107); Creatinine, Serum 0.53 mg/dL (0.55-1.02); EST Glomerular Filtration Rate 132 mL/min (>60); Est Glom Filt Rate - Afr Amer 160 mL/min (>60); Estimated Creatinine Clearance 113.31 ml/min; Globulin 3.7 g/dL (2.2-4.2); Glucose 92 mg/dL (74-106); Potassium 4.4 mmol/L (3.5-5.1); Protein, Total 7.6 g/dL (6.4-8.2); Sodium Level 138 mmol/L (136-145)
[2020-11-13 10:53] VITALS: BP 140/98; PULSE 90; RESP 23; TEMP 36.6; O2SAT 98
[2020-11-13 12:17] VITALS: BP 137/86; PULSE 92; RESP 20; O2SAT 97
== END 2020-11-13 12:17 | disposition home or self-care (01) ==
PROVIDERS: Emergency Provider Emergency Medicine; PCP Student in an Organized Health Care Education/Training Program
DX: J06.9 Acute upper respiratory infection, unspecified (principal); F17.210 Nicotine dependence, cigarettes, uncomplicated; I25.2 Old myocardial infarction; Z86.711 Personal history of pulmonary embolism; Z86.718 Personal history of other venous thrombosis and embolism; E78.5 Hyperlipidemia, unspecified; F31.9 Bipolar disorder, unspecified; Z79.52 Long term (current) use of systemic steroids; Z79.82 Long term (current) use of aspirin; Z79.899 Other long term (current) drug therapy
CPT/HCPCS: 71045; 80053; 85025; 87426; 99284; A4216